=== PATIENT | female | born 1965 | race Caucasian/White ===

== ENCOUNTER 2021-05-19 11:18 | Inpatient (IN) | payer OTHER ==
[2021-05-19] MEDS ORDERED: METOCLOPRAMIDE HCL INJECTION 10 MG/2 ML VIAL IVPB ONE (13:22)
[2021-05-19] MEDS ORDERED: LACTATED RINGERS SOLUTION 1000 ML INFUS.BAG IV ONE ×2 (13:23→16:42)
[2021-05-19] MEDS ORDERED: ACETAMINOPHEN 1000 MG/100 ML VIAL (NON FORMULARY) IVPB ONE (13:37)
[2021-05-19] MEDS ORDERED: ACETAMINOPHEN INJECTION 100 ML IVPB ONE (14:28)
[2021-05-19] MEDS ORDERED: METOCLOPRAMIDE HCL INJECTION 10 MG/2 ML VIAL ONE (14:28)
[2021-05-19 15:47] LABS: BASO % 0.6 % (0-2.0); EOS % 1.6 % (0-4.5); HEMATOCRIT 40.1 % (32.4-45.2); HEMOGLOBIN 13.2 GM/dL (10.7-15.3); LYMPH % 39.8 % (8-40); MCH 26.3 pg (25.7-33.7); MCHC 32.8 g/dl (32.0-36.0); MEAN CELL VOLUME 80.2 fl (80-96); MEAN PLT VOLUME 7.7 fl (7.5-11.1); MONO % 8.4 % (3.8-10.2); NEUT % 49.6 % (42.8-82.8); PLATELET COUNT 386 10^3/uL (134-434); RDW 14.5 % (11.6-15.6); WHITE BLOOD COUNT 11.7 K/mm3 (4.0-10.0)
[2021-05-19 16:05] LABS: CHLORIDE 107 mmol/L (98-107); SODIUM 145 mmol/L (136-145)
[2021-05-19 16:07] LABS: CALCIUM 9.7 mg/dL (8.5-10.1)
[2021-05-19 16:08] LABS: ALBUMIN 3.7 g/dl (3.4-5.0); ANION GAP 11 MMOL/L (8-16); BLOOD UREA NITROGEN 24.6 mg/dL (7-18); CO2 27 mmol/L (21-32)
[2021-05-19 16:11] LABS: SGOT/AST 18 U/L (15-37); SGPT/ALT 24 U/L (13-61)
[2021-05-19 16:13] LABS: BILIRUBIN,TOTAL 0.6 mg/dL (0.2-1)
[2021-05-19 16:14] LABS: ALK PHOS 98 U/L (45-117)
[2021-05-19 16:17] LABS: GLUCOSE,RANDOM 49 mg/dL (74-106)
[2021-05-19 16:29] LABS: URINE APPEARANCE CLOUDY; URINE BILIRUBIN NEGATIVE (NEGATIVE); URINE COLOR YELLOW; URINE GLUCOSE (UA) NEGATIVE (NEGATIVE); URINE KETONE TRACE (NEGATIVE); URINE LEUK ESTERASE NEGATIVE (NEGATIVE); URINE NITRITE NEGATIVE (NEGATIVE); URINE PROTEIN NEGATIVE (NEGATIVE)
[2021-05-19] MEDS ORDERED: morphine CARPU-JECT 4 MG/1 ML DISP.SYRIN IVPUSH ONE (17:08)
[2021-05-19] MEDS ORDERED: morphine SULFATE 4 MG/ML VIAL ONE (17:32)
[2021-05-19] MEDS ORDERED: DEXTROSE 50%-WATER - 25 GM/50 ML VIAL IVPUSH ONE (17:37)
[2021-05-19] MEDS ORDERED: DEXTROSE 50%-WATER 25 GM/50 ML DISP.SYRIN ONE (17:44)
[2021-05-19] MEDS ORDERED: DOCUSATE SODIUM 100 MG CAPSULE (FP) PO ONE ×2 (19:10→19:28)
[2021-05-19] MEDS ORDERED: HYDROmorphone HCL CARPU-JECT 2 MG/1 ML DISP.SYRIN IVPB ONE (19:10)
[2021-05-19] MEDS ORDERED: HYDROmorphone HCl 2 MG/ML VIAL ONE (19:21)
[2021-05-19] MEDS ORDERED: POTASSIUM CHLORIDE TABS 20 MEQ TABLET.ER (FP) PO ONE (22:58)
[2021-05-19] MEDS ORDERED: SODIUM CHLORIDE 1,000 ML IV SCH (23:00)
[2021-05-19] MEDS ORDERED: KCL 10 MEQ IVPB 10 MEQ/100 ML INFUS.BAG IVPB SCH (23:15)
[2021-05-19] MEDS: MORPHINE SULFATE 2 MG/ML VIAL IVPUSH PRN (23:25)
[2021-05-19] MEDS: INSULIN SLIDING SCALE (NOVOLOG) 1 VIAL SQ SCH (23:44)
[2021-05-19] MEDS ORDERED: D5-1/2NS+30 MEQ KCL - 30 MEQ/1,000 ML INFUS.BAG IV SCH (23:45)
[2021-05-20 00:02] LABS: MAGNESIUM 1.9 mg/dL (1.8-2.4)
[2021-05-20 04:35] VITALS: BMI 33.7
[2021-05-20] MEDS: MORPHINE SULFATE 2 MG/ML VIAL IVPUSH PRN ×2 (04:46→08:50)
[2021-05-20] MEDS: INSULIN SLIDING SCALE (NOVOLOG) 1 VIAL SQ SCH ×5 (06:09→23:04)
[2021-05-20] MEDS: HEPARIN NA (PORCINE) 5,000 UNITS/ML 1ML VIAL SQ SCH ×3 (06:09→21:29)
[2021-05-20] MEDS: ACETAMINOPHEN 325 MG TABLET (FP) PO PRN (06:15)
[2021-05-20] MEDS: LEVOTHYROXINE NA 150 MCG TABLET PO SCH (06:16)
[2021-05-20 08:08] LABS: PH,URINE 5.5 (5.0-8.0); URINE APPEARANCE CLEAR; URINE BILIRUBIN NEGATIVE (NEGATIVE); URINE COLOR YELLOW; URINE GLUCOSE (UA) NEGATIVE (NEGATIVE); URINE KETONE NEGATIVE (NEGATIVE); URINE LEUK ESTERASE NEGATIVE (NEGATIVE); URINE NITRITE NEGATIVE (NEGATIVE); URINE PROTEIN NEGATIVE (NEGATIVE); URINE UROBILINOGEN 0.2 mg/dL (0.2-1.0)
[2021-05-20] MEDS: TAMSULOSIN HCL 0.4 MG CAP PO SCH (08:43)
[2021-05-20 09:08] LABS: BLOOD UREA NITROGEN 17.1 mg/dL (7-18); CALCIUM 8.7 mg/dL (8.5-10.1); MAGNESIUM 1.8 mg/dL (1.8-2.4)
[2021-05-20 09:10] LABS: PHOSPHOROUS 4.2 mg/dL (2.5-4.9); URIC ACID 6.5 mg/dL (2.6-7.2)
[2021-05-20 09:11] LABS: CREATININE 1.5 mg/dL (0.55-1.3)
[2021-05-20 09:12] LABS: BILIRUBIN,TOTAL 0.5 mg/dL (0.2-1); TOT PROT 6.5 g/dl (6.4-8.2)
[2021-05-20 09:42] LABS: BASO % 0.8 % (0-2.0); HEMATOCRIT 33.5 % (32.4-45.2); HEMOGLOBIN 11.5 GM/dL (10.7-15.3); MCH 27.2 pg (25.7-33.7); MCHC 34.2 g/dl (32.0-36.0); MEAN CELL VOLUME 79.5 fl (80-96); MEAN PLT VOLUME 7.6 fl (7.5-11.1); MONO % 8.5 % (3.8-10.2); NEUT % 47.7 % (42.8-82.8); PLATELET COUNT 305 10^3/uL (134-434); RBC 4.22 M/mm3 (3.60-5.2); RDW 14.6 % (11.6-15.6); WHITE BLOOD COUNT 8.2 K/mm3 (4.0-10.0)
[2021-05-20] MEDS ORDERED: LISINOPRIL 5 MG TABLET PO SCH (10:00)
[2021-05-20] MEDS: oxyCODONE HCL 5 MG TABLET PO PRN ×2 (12:10→18:11)
[2021-05-20] MEDS: DEXTROSE 5%-0.45% SALINE 1,000 ML IV SCH (21:28)
[2021-05-20] MEDS: ATORVASTATIN CA 20 MG TABLET (FP) PO SCH (21:29)
[2021-05-20] MEDS ORDERED: FAMOTIDINE 20 MG TABLET PO SCH (22:00)
[2021-05-21] MEDS: oxyCODONE HCL 5 MG TABLET PO PRN ×5 (00:06→21:07)
[2021-05-21] MEDS ORDERED: PT OWN MED DRAWER 7, Y5N ONE (05:18)
[2021-05-21] MEDS: DEXTROSE 5%-0.45% SALINE 1,000 ML IV SCH ×2 (06:02→18:05)
[2021-05-21] MEDS: HEPARIN NA (PORCINE) 5,000 UNITS/ML 1ML VIAL SQ SCH ×3 (06:04→21:10)
[2021-05-21] MEDS: LEVOTHYROXINE NA 150 MCG TABLET PO SCH (06:04)
[2021-05-21] MEDS: INSULIN SLIDING SCALE (NOVOLOG) 1 VIAL SQ SCH ×4 (06:05→21:15)
[2021-05-21] MEDS: TAMSULOSIN HCL 0.4 MG CAP PO SCH (09:21)
[2021-05-21 09:39] LABS: BASO % 0.9 % (0-2.0); EOS % 4.4 % (0-4.5); HEMATOCRIT 32.5 % (32.4-45.2); LYMPH % 41.2 % (8-40); MCH 27.2 pg (25.7-33.7); MCHC 33.7 g/dl (32.0-36.0); MEAN CELL VOLUME 80.6 fl (80-96); MEAN PLT VOLUME 7.7 fl (7.5-11.1); MONO % 8.2 % (3.8-10.2); NEUT % 45.3 % (42.8-82.8); PLATELET COUNT 298 10^3/uL (134-434); RBC 4.03 M/mm3 (3.60-5.2); RDW 14.5 % (11.6-15.6); WHITE BLOOD COUNT 6.3 K/mm3 (4.0-10.0)
[2021-05-21 10:01] LABS: CALCIUM 8.5 mg/dL (8.5-10.1)
[2021-05-21 10:03] LABS: ALBUMIN 2.9 g/dl (3.4-5.0); BLOOD UREA NITROGEN 9.7 mg/dL (7-18); MAGNESIUM 1.7 mg/dL (1.8-2.4)
[2021-05-21 10:06] LABS: BILIRUBIN,TOTAL 0.4 mg/dL (0.2-1); CREATININE 1.2 mg/dL (0.55-1.3); TOT PROT 6.2 g/dl (6.4-8.2)
[2021-05-21] MEDS ORDERED: ONDANSETRON *ODT* 4 MG TABLET SL ONE (10:26)
[2021-05-21] MEDS: POLYETHYLENE GLYCOL (HEALTHYLAX) 3350 17 GM PACKET PO SCH (11:41)
[2021-05-21] MEDS: LIDOCAINE 5% TOPICAL PATCH TP SCH (11:41)
[2021-05-21] MEDS: DOCUSATE SODIUM 100 MG CAPSULE (FP) PO SCH ×2 (14:45→21:09)
[2021-05-21] MEDS ORDERED: MAGNESIUM OXIDE 400 MG TABLET (FP) PO ONE (15:07)
[2021-05-21] MEDS: ATORVASTATIN CA 20 MG TABLET (FP) PO SCH (21:09)
[2021-05-21] MEDS: INSULIN (LEVEMIR) 100 UNITS/ML UNITS SQ SCH (21:12)
[2021-05-21] MEDS: LIDOCAINE PATCH REMOVAL MC SCH (21:23)
[2021-05-21] MEDS ORDERED: INSULIN (LEVEMIR) 100 UNITS/ML UNITS SQ SCH (22:00)
[2021-05-22] MEDS: oxyCODONE HCL 5 MG TABLET PO PRN ×4 (00:54→21:08)
[2021-05-22] MEDS: ACETAMINOPHEN 325 MG TABLET (FP) PO PRN (03:52)
[2021-05-22] MEDS: DEXTROSE 5%-0.45% SALINE 1,000 ML IV SCH (03:53)
[2021-05-22] MEDS: HEPARIN NA (PORCINE) 5,000 UNITS/ML 1ML VIAL SQ SCH ×3 (05:15→21:09)
[2021-05-22] MEDS: DOCUSATE SODIUM 100 MG CAPSULE (FP) PO SCH ×3 (05:15→21:09)
[2021-05-22] MEDS: INSULIN (LEVEMIR) 100 UNITS/ML UNITS SQ SCH ×2 (06:07→21:19)
[2021-05-22] MEDS: LEVOTHYROXINE NA 150 MCG TABLET PO SCH (06:07)
[2021-05-22] MEDS: INSULIN SLIDING SCALE (NOVOLOG) 1 VIAL SQ SCH ×4 (06:09→21:18)
[2021-05-22 08:59] LABS: BASO % 0.9 % (0-2.0); EOS % 4.2 % (0-4.5); HEMATOCRIT 30.3 % (32.4-45.2); HEMOGLOBIN 9.9 GM/dL (10.7-15.3); LYMPH % 44.9 % (8-40); MCH 26.5 pg (25.7-33.7); MCHC 32.8 g/dl (32.0-36.0); MEAN CELL VOLUME 80.6 fl (80-96); MEAN PLT VOLUME 7.4 fl (7.5-11.1); MONO % 10.3 % (3.8-10.2); NEUT % 39.7 % (42.8-82.8); PLATELET COUNT 259 10^3/uL (134-434); RBC 3.76 M/mm3 (3.60-5.2); RDW 14.7 % (11.6-15.6); WHITE BLOOD COUNT 6.5 K/mm3 (4.0-10.0)
[2021-05-22 09:22] LABS: CALCIUM 8.6 mg/dL (8.5-10.1)
[2021-05-22 09:23] LABS: BLOOD UREA NITROGEN 5.7 mg/dL (7-18); MAGNESIUM 1.8 mg/dL (1.8-2.4)
[2021-05-22 09:26] LABS: CREATININE 1.1 mg/dL (0.55-1.3)
[2021-05-22 09:28] LABS: BILIRUBIN,TOTAL 0.2 mg/dL (0.2-1); TOT PROT 6.1 g/dl (6.4-8.2)
[2021-05-22] MEDS: TAMSULOSIN HCL 0.4 MG CAP PO SCH (10:24)
[2021-05-22] MEDS: POLYETHYLENE GLYCOL (HEALTHYLAX) 3350 17 GM PACKET PO SCH (10:24)
[2021-05-22] MEDS: LIDOCAINE 5% TOPICAL PATCH TP SCH (10:24)
[2021-05-22] MEDS ORDERED: ACETAMINOPHEN 1000 MG/100 ML VIAL (NON FORMULARY) IVPB ONE (11:02)
[2021-05-22] MEDS ORDERED: MORPHINE SULFATE 2 MG/ML VIAL SQ ONE (11:03)
[2021-05-22] MEDS ORDERED: BISACODYL 10 MG SUPP.RECT PR ONE (11:03)
[2021-05-22] MEDS: SODIUM CHLORIDE 1,000 ML IV SCH ×2 (11:12→21:10)
[2021-05-22] MEDS ORDERED: DEXTROSE 5%-WATER - 50 ML IVPB ONE (16:57)
[2021-05-22] MEDS ORDERED: cefTRIAXone SODIUM 1 GM VIAL ONE (16:57)
[2021-05-22] MEDS: CEFTRIAXONE 1 GM in DEXTROSE 5%-WATER - 50 ML IVPB SCH (17:18)
[2021-05-22] MEDS: ATORVASTATIN CA 20 MG TABLET (FP) PO SCH (21:09)
[2021-05-22] MEDS: LIDOCAINE PATCH REMOVAL MC SCH (21:20)
[2021-05-23] MEDS: oxyCODONE HCL 5 MG TABLET PO PRN ×3 (02:57→15:32)
[2021-05-23] MEDS: HEPARIN NA (PORCINE) 5,000 UNITS/ML 1ML VIAL SQ SCH ×3 (05:08→21:03)
[2021-05-23] MEDS: DOCUSATE SODIUM 100 MG CAPSULE (FP) PO SCH ×3 (05:08→21:03)
[2021-05-23] MEDS: INSULIN (LEVEMIR) 100 UNITS/ML UNITS SQ SCH ×2 (05:59→21:03)
[2021-05-23] MEDS: LEVOTHYROXINE NA 150 MCG TABLET PO SCH (05:59)
[2021-05-23] MEDS: INSULIN SLIDING SCALE (NOVOLOG) 1 VIAL SQ SCH ×4 (05:59→21:40)
[2021-05-23] MEDS: SODIUM CHLORIDE 1,000 ML IV SCH (06:06)
[2021-05-23 07:28] LABS: BASO % 0.9 % (0-2.0); EOS % 3.9 % (0-4.5); HEMATOCRIT 30.6 % (32.4-45.2); HEMOGLOBIN 10.3 GM/dL (10.7-15.3); LYMPH % 33.8 % (8-40); MCH 27.3 pg (25.7-33.7); MCHC 33.5 g/dl (32.0-36.0); MEAN CELL VOLUME 81.3 fl (80-96); MEAN PLT VOLUME 7.8 fl (7.5-11.1); MONO % 8.4 % (3.8-10.2); PLATELET COUNT 268 10^3/uL (134-434); RBC 3.76 M/mm3 (3.60-5.2); RDW 14.7 % (11.6-15.6); WHITE BLOOD COUNT 5.7 K/mm3 (4.0-10.0)
[2021-05-23 07:38] LABS: CALCIUM 8.2 mg/dL (8.5-10.1)
[2021-05-23 07:39] LABS: ALBUMIN 2.8 g/dl (3.4-5.0); BLOOD UREA NITROGEN 7.3 mg/dL (7-18); MAGNESIUM 1.5 mg/dL (1.8-2.4)
[2021-05-23 07:42] LABS: CREATININE 1.1 mg/dL (0.55-1.3)
[2021-05-23 07:43] LABS: BILIRUBIN,TOTAL 0.2 mg/dL (0.2-1)
[2021-05-23 07:44] LABS: TOT PROT 6.1 g/dl (6.4-8.2)
[2021-05-23] MEDS ORDERED: MAGNESIUM OXIDE 400 MG TABLET (FP) PO ONE (07:58)
[2021-05-23] MEDS: TAMSULOSIN HCL 0.4 MG CAP PO SCH (08:23)
[2021-05-23] MEDS ORDERED: BISACODYL 5 MG TABLET.DR (FP) PO ONE (09:53)
[2021-05-23] MEDS ORDERED: cefTRIAXone SODIUM 1 GM VIAL ONE (10:04)
[2021-05-23] MEDS ORDERED: DEXTROSE 5%-WATER - 50 ML IVPB ONE (10:05)
[2021-05-23] MEDS: POLYETHYLENE GLYCOL (HEALTHYLAX) 3350 17 GM PACKET PO SCH (10:34)
[2021-05-23] MEDS: CEFTRIAXONE 1 GM in DEXTROSE 5%-WATER - 50 ML IVPB SCH (10:34)
[2021-05-23] MEDS: LIDOCAINE 5% TOPICAL PATCH TP SCH (10:35)
[2021-05-23] MEDS: ACETAMINOPHEN 325 MG TABLET (FP) PO PRN (10:49)
[2021-05-23] MEDS ORDERED: ACETAMINOPHEN 1000 MG/100 ML VIAL (NON FORMULARY) IVPB ONE (20:00)
[2021-05-23] MEDS: ATORVASTATIN CA 20 MG TABLET (FP) PO SCH (21:03)
[2021-05-24] MEDS: HEPARIN NA (PORCINE) 5,000 UNITS/ML 1ML VIAL SQ SCH (05:03)
[2021-05-24] MEDS: DOCUSATE SODIUM 100 MG CAPSULE (FP) PO SCH (05:04)
[2021-05-24] MEDS: INSULIN (LEVEMIR) 100 UNITS/ML UNITS SQ SCH (06:18)
[2021-05-24] MEDS: INSULIN SLIDING SCALE (NOVOLOG) 1 VIAL SQ SCH (06:18)
[2021-05-24] MEDS: LEVOTHYROXINE NA 150 MCG TABLET PO SCH (06:21)
[2021-05-24 06:34] VITALS: BP 120/77; PULSE 61; TEMP 98.2
[2021-05-24 08:32] LABS: BASO % 0.8 % (0-2.0); EOS % 4.4 % (0-4.5); HEMATOCRIT 31.9 % (32.4-45.2); HEMOGLOBIN 10.8 GM/dL (10.7-15.3); LYMPH % 27.7 % (8-40); MCH 27.5 pg (25.7-33.7); MCHC 33.8 g/dl (32.0-36.0); MEAN CELL VOLUME 81.2 fl (80-96); MEAN PLT VOLUME 7.7 fl (7.5-11.1); MONO % 8.2 % (3.8-10.2); NEUT % 58.9 % (42.8-82.8); PLATELET COUNT 278 10^3/uL (134-434); RBC 3.93 M/mm3 (3.60-5.2); RDW 14.6 % (11.6-15.6); WHITE BLOOD COUNT 6.3 K/mm3 (4.0-10.0)
[2021-05-24 08:55] LABS: CALCIUM 8.8 mg/dL (8.5-10.1)
[2021-05-24 08:56] LABS: ALBUMIN 2.9 g/dl (3.4-5.0); MAGNESIUM 1.7 mg/dL (1.8-2.4)
[2021-05-24 08:59] LABS: CREATININE 1.2 mg/dL (0.55-1.3)
[2021-05-24 09:01] LABS: BILIRUBIN,TOTAL 0.2 mg/dL (0.2-1); TOT PROT 6.1 g/dl (6.4-8.2)
[2021-05-24] MEDS ORDERED: MAGNESIUM OXIDE 400 MG TABLET (FP) PO ONE (09:15)
[2021-05-24] MEDS ORDERED: cefTRIAXone SODIUM 1 GM VIAL ONE (10:17)
[2021-05-24] MEDS ORDERED: DEXTROSE 5%-WATER - 50 ML IVPB ONE (10:17)
[2021-05-24] MEDS: oxyCODONE HCL 5 MG TABLET PO PRN (10:22)
[2021-05-24] MEDS: TAMSULOSIN HCL 0.4 MG CAP PO SCH (10:23)
[2021-05-24] MEDS: POLYETHYLENE GLYCOL (HEALTHYLAX) 3350 17 GM PACKET PO SCH (10:23)
[2021-05-24] MEDS: LIDOCAINE 5% TOPICAL PATCH TP SCH (10:23)
[2021-05-24] MEDS: CEFTRIAXONE 1 GM in DEXTROSE 5%-WATER - 50 ML IVPB SCH (10:24)
== END 2021-05-24 14:49 | disposition home or self-care (01) | DRG 469 ==
LOC: JER 11:18 → JERBED 18:05 → J8W 22:45
PROVIDERS: ADMIT Internal Medicine; ATTEND Nurse Practitioner Family
DX: N17.9 Acute kidney failure, unspecified (principal); I25.10 Atherosclerotic heart disease of native coronary artery without angina pectoris; I10 Essential (primary) hypertension; E03.9 Hypothyroidism, unspecified; E87.6 Hypokalemia; N20.0 Calculus of kidney; N12 Tubulo-interstitial nephritis, not specified as acute or chronic; E11.65 Type 2 diabetes mellitus with hyperglycemia; N28.1 Cyst of kidney, acquired
CPT/HCPCS: 36415; 74176-TC; 76775-TC; 80053; 81003; 82962; 83036; 83735; 83970; 84100; 84436; 84443; 84550; 84703; 85025; 87086; 93005; 93010; 97116-GP; 97161-GP; 99285-25; C9803; J0131; J1644; Q0162; U0003; U0005

== ENCOUNTER 2021-06-18 13:00 | Inpatient (IN) | payer OTHER ==
[2021-06-18] MEDS ORDERED: MAG HYDROX/AL HYDROX/SIMETH 30 ML UNIT-DOSE CUP PO ONE (13:41)
[2021-06-18] MEDS ORDERED: ONDANSETRON 4 MG/2 ML VIAL IVPUSH ONE (13:41)
[2021-06-18] MEDS ORDERED: SODIUM CHLORIDE 0.9% 500 ML INFUS.BAG IV ONE ×2 (13:41→18:22)
[2021-06-18] MEDS ORDERED: FAMOTIDINE 20 MG/50 ML IVPB 20 MG/50 ML MG IVPB ONE ×2 (13:42→13:45)
[2021-06-18] MEDS ORDERED: ONDANSETRON 4 MG/2 ML VIAL ONE (13:45)
[2021-06-18 14:37] LABS: BASO % 0.5 % (0-2.0); EOS % 0.1 % (0-4.5); HEMATOCRIT 38.1 % (32.4-45.2); HEMOGLOBIN 12.8 GM/dL (10.7-15.3); LYMPH % 22.3 % (8-40); MCH 26.4 pg (25.7-33.7); MCHC 33.5 g/dl (32.0-36.0); MEAN CELL VOLUME 78.7 fl (80-96); MEAN PLT VOLUME 7.7 fl (7.5-11.1); MONO % 8.2 % (3.8-10.2); NEUT % 68.9 % (42.8-82.8); PLATELET COUNT 405 10^3/uL (134-434); RBC 4.84 M/mm3 (3.60-5.2); RDW 14.4 % (11.6-15.6); WHITE BLOOD COUNT 13.3 K/mm3 (4.0-10.0)
[2021-06-18 15:00] LABS: CHLORIDE 98 mmol/L (98-107); SODIUM 134 mmol/L (136-145)
[2021-06-18 15:02] LABS: ALBUMIN 3.9 g/dl (3.4-5.0); BLOOD UREA NITROGEN 21.7 mg/dL (7-18); CALCIUM 9.6 mg/dL (8.5-10.1)
[2021-06-18 15:03] LABS: ANION GAP 10 MMOL/L (8-16); CO2 26 mmol/L (21-32); GLUCOSE,RANDOM 235 mg/dL (74-106); LIPASE 42 U/L (73-393)
[2021-06-18 15:06] LABS: CREATININE 1.3 mg/dL (0.55-1.3); SGOT/AST 18 U/L (15-37); SGPT/ALT 26 U/L (13-61)
[2021-06-18 15:07] LABS: BILIRUBIN,TOTAL 0.4 mg/dL (0.2-1); TOT PROT 8.1 g/dl (6.4-8.2)
[2021-06-18 15:08] LABS: ALK PHOS 108 U/L (45-117)
[2021-06-18] MEDS ORDERED: METOCLOPRAMIDE HCL INJECTION 10 MG/2 ML VIAL IVPUSH ONE (18:01)
[2021-06-18] MEDS ORDERED: morphine CARPU-JECT 4 MG/1 ML DISP.SYRIN IVPUSH ONE (18:01)
[2021-06-18] MEDS ORDERED: morphine SULFATE 4 MG/ML VIAL ONE (18:08)
[2021-06-18] MEDS ORDERED: METOCLOPRAMIDE HCL INJECTION 10 MG/2 ML VIAL ONE (18:09)
[2021-06-18 20:08] LABS: EPI CELLS 19 /uL (0-25.1); HYALINE CASTS 1 /uL (0-3.1); PH,URINE 5.5 (5.0-8.0); URINE APPEARANCE CLEAR; URINE BACTERIA 860 /uL (0-1359); URINE BILIRUBIN NEGATIVE (NEGATIVE); URINE COLOR YELLOW; URINE GLUCOSE (UA) 1+ (NEGATIVE); URINE KETONE 1+ (NEGATIVE); URINE LEUK ESTERASE NEGATIVE (NEGATIVE); URINE NITRITE NEGATIVE (NEGATIVE); URINE PROTEIN 2+ (NEGATIVE); URINE RBC 4 /uL (0-23.9); URINE UROBILINOGEN 0.2 mg/dL (0.2-1.0); URINE WBC 21 /uL (0-25.8)
[2021-06-18] MEDS: SODIUM CHLORIDE 1,000 ML IV SCH (22:04)
[2021-06-18 22:30] VITALS: BMI 33.1
[2021-06-18] MEDS ORDERED: ONDANSETRON 4 MG/2 ML VIAL IVPUSH PRN (23:36)
[2021-06-18] MEDS ORDERED: MAG HYDROX/AL HYDROX/SIMETH 30 ML UNIT-DOSE CUP PO PRN (23:36)
[2021-06-18] MEDS: MORPHINE SULFATE 2 MG/ML VIAL IVPUSH PRN (23:43)
[2021-06-18 23:54] LABS: BASO % 0.6 % (0-2.0); EOS % 0.4 % (0-4.5); HEMATOCRIT 35.6 % (32.4-45.2); HEMOGLOBIN 11.9 GM/dL (10.7-15.3); LYMPH % 25.1 % (8-40); MCH 26.3 pg (25.7-33.7); MCHC 33.3 g/dl (32.0-36.0); MEAN CELL VOLUME 78.8 fl (80-96); MEAN PLT VOLUME 7.5 fl (7.5-11.1); MONO % 11.1 % (3.8-10.2); NEUT % 62.8 % (42.8-82.8); PLATELET COUNT 339 10^3/uL (134-434); RBC 4.52 M/mm3 (3.60-5.2); WHITE BLOOD COUNT 12.4 K/mm3 (4.0-10.0)
[2021-06-19] MEDS: INSULIN SLIDING SCALE (NOVOLOG) 1 VIAL SQ SCH ×4 (06:03→21:21)
[2021-06-19] MEDS: MORPHINE SULFATE 2 MG/ML VIAL IVPUSH PRN ×3 (06:08→20:48)
[2021-06-19 07:04] LABS: COCAINE, UR NEGATIVE (NEGATIVE); PHENCYCLIDINE,URINE NEGATIVE (NEGATIVE)
[2021-06-19 07:05] LABS: METHADONE, UR NEGATIVE (NEGATIVE); OPIATES, URI POSITIVE (NEGATIVE); URINE AMPHETAMINES NEGATIVE (NEGATIVE); URINE BARBITURATES NEGATIVE (NEGATIVE); URINE BENZODIAZEPINES NEGATIVE (NEGATIVE)
[2021-06-19 08:27] LABS: BASO % 0.8 % (0-2.0); EOS % 1.1 % (0-4.5); HEMATOCRIT 33.5 % (32.4-45.2); HEMOGLOBIN 11.3 GM/dL (10.7-15.3); LYMPH % 29.4 % (8-40); MCH 26.6 pg (25.7-33.7); MCHC 33.6 g/dl (32.0-36.0); MEAN CELL VOLUME 79.1 fl (80-96); MEAN PLT VOLUME 7.6 fl (7.5-11.1); MONO % 11.2 % (3.8-10.2); NEUT % 57.5 % (42.8-82.8); PLATELET COUNT 322 10^3/uL (134-434); RBC 4.24 M/mm3 (3.60-5.2); WHITE BLOOD COUNT 9.6 K/mm3 (4.0-10.0)
[2021-06-19 08:47] LABS: CALCIUM 8.3 mg/dL (8.5-10.1)
[2021-06-19 08:48] LABS: ALBUMIN 3.2 g/dl (3.4-5.0); BLOOD UREA NITROGEN 18.3 mg/dL (7-18); MAGNESIUM 1.9 mg/dL (1.8-2.4)
[2021-06-19 08:51] LABS: CREATININE 1.1 mg/dL (0.55-1.3); PHOSPHOROUS 3.1 mg/dL (2.5-4.9)
[2021-06-19 08:52] LABS: BILIRUBIN,TOTAL 0.4 mg/dL (0.2-1); TOT PROT 6.4 g/dl (6.4-8.2)
[2021-06-19] MEDS: ENOXAPARIN NA (PORCINE) 40 MG/0.4 ML DISP.SYRIN SQ SCH (11:01)
[2021-06-19] MEDS: SODIUM CHLORIDE 1,000 ML IV SCH (11:01)
[2021-06-19] MEDS ORDERED: INSULIN (NOVOLOG) ASPART 100 UNITS/ML 10ML VIAL ONE (17:45)
[2021-06-20] MEDS: MORPHINE SULFATE 2 MG/ML VIAL IVPUSH PRN ×2 (00:50→09:56)
[2021-06-20] MEDS: SODIUM CHLORIDE 1,000 ML IV SCH ×3 (01:44→14:16)
[2021-06-20] MEDS: INSULIN SLIDING SCALE (NOVOLOG) 1 VIAL SQ SCH ×4 (06:04→22:07)
[2021-06-20] MEDS: ENOXAPARIN NA (PORCINE) 40 MG/0.4 ML DISP.SYRIN SQ SCH (09:56)
[2021-06-20] MEDS ORDERED: ACETAMINOPHEN 325 MG TABLET (FP) PO PRN (20:04)
[2021-06-21] MEDS: SODIUM CHLORIDE 1,000 ML IV SCH ×3 (04:02→21:07)
[2021-06-21] MEDS: INSULIN SLIDING SCALE (NOVOLOG) 1 VIAL SQ SCH ×4 (06:28→21:08)
[2021-06-21] MEDS: MULTIVITAMINS (DAILY MVI) TABLET (FP) PO SCH (10:41)
[2021-06-21] MEDS: ENOXAPARIN NA (PORCINE) 40 MG/0.4 ML DISP.SYRIN SQ SCH (10:41)
[2021-06-21 12:40] LABS: BASO % 0.3 % (0-2.0); EOS % 2.4 % (0-4.5); HEMATOCRIT 33.9 % (32.4-45.2); HEMOGLOBIN 11.5 GM/dL (10.7-15.3); LYMPH % 27.9 % (8-40); MCH 27.2 pg (25.7-33.7); MCHC 33.9 g/dl (32.0-36.0); MEAN CELL VOLUME 80.2 fl (80-96); MEAN PLT VOLUME 7.6 fl (7.5-11.1); MONO % 6.4 % (3.8-10.2); PLATELET COUNT 352 10^3/uL (134-434); RBC 4.23 M/mm3 (3.60-5.2); RDW 13.9 % (11.6-15.6); WHITE BLOOD COUNT 8.8 K/mm3 (4.0-10.0)
[2021-06-21 13:02] LABS: ALBUMIN 3.4 g/dl (3.4-5.0); BLOOD UREA NITROGEN 11.8 mg/dL (7-18); CALCIUM 8.9 mg/dL (8.5-10.1)
[2021-06-21 13:07] LABS: BILIRUBIN,TOTAL 0.4 mg/dL (0.2-1); TOT PROT 7.2 g/dl (6.4-8.2)
[2021-06-22] MEDS: INSULIN SLIDING SCALE (NOVOLOG) 1 VIAL SQ SCH ×2 (06:03→12:24)
[2021-06-22] MEDS: SODIUM CHLORIDE 1,000 ML IV SCH (06:29)
[2021-06-22] MEDS: ENOXAPARIN NA (PORCINE) 40 MG/0.4 ML DISP.SYRIN SQ SCH (10:58)
[2021-06-22] MEDS: MULTIVITAMINS (DAILY MVI) TABLET (FP) PO SCH (10:58)
[2021-06-22 12:00] VITALS: BP 144/82; PULSE 86; TEMP 98.9
== END 2021-06-22 17:49 | disposition home or self-care (01) | DRG 48 ==
LOC: JER 13:00 → JERBED 18:37 → J8W 20:51
PROVIDERS: ADMIT Internal Medicine
DX: E11.43 Type 2 diabetes mellitus with diabetic autonomic (poly)neuropathy (principal); I31.3 Pericardial effusion (noninflammatory); D72.829 Elevated white blood cell count, unspecified; I10 Essential (primary) hypertension; K31.84 Gastroparesis; E78.5 Hyperlipidemia, unspecified; F17.210 Nicotine dependence, cigarettes, uncomplicated; I25.10 Atherosclerotic heart disease of native coronary artery without angina pectoris; K43.9 Ventral hernia without obstruction or gangrene; R10.84 Generalized abdominal pain; R11.2 Nausea with vomiting, unspecified; Z79.01 Long term (current) use of anticoagulants; Z79.82 Long term (current) use of aspirin; E66.9 Obesity, unspecified; Z68.33 Body mass index [BMI] 33.0-33.9, adult; E03.9 Hypothyroidism, unspecified; K21.9 Gastro-esophageal reflux disease without esophagitis; R19.7 Diarrhea, unspecified
CPT/HCPCS: 36415; 70450-TC; 71046-TC-FY; 74176-TC; 80053; 80307; 81003; 82962; 83690; 83735; 84100; 84443; 84484; 85025; 87040; 87086; 93005; 93010; 99285-25; C9803; U0003; U0005

== ENCOUNTER 2021-07-21 12:59 | Emergency (ER) | payer OTHER ==
[2021-07-21 13:12] VITALS: BP 130/76; PULSE 94; TEMP 97.9; BMI 33.3
[2021-07-21] MEDS ORDERED: ACETAMINOPHEN 500 MG TABLET (FP) PO ONE (13:48)
[2021-07-21] MEDS ORDERED: DIPHTH,PERTUSS(ACELL),TET 0.5 ML DISP.SYRIN IM ONE ×2 (13:50→13:55)
[2021-07-21] MEDS ORDERED: ACETAMINOPHEN 500 MG TABLET (FP) ONE (13:54)
== END 2021-07-21 15:00 | disposition home or self-care (01) ==
LOC: JERFT 12:59
PROC: 0H9BXZZ Drainage of Right Upper Arm Skin, External Approach (ICD-10-PCS; principal; 2021-07-21)
PROC: 3E0234Z Introduction of Serum, Toxoid and Vaccine into Muscle, Percutaneous Approach (ICD-10-PCS; 2021-07-21)
DX: L02.412 Cutaneous abscess of left axilla (principal)
CPT/HCPCS: 10060; 90471; 90715; 99284-25

== ENCOUNTER 2021-07-23 13:04 | Emergency (ER) | payer OTHER ==
[2021-07-23 13:28] VITALS: BP 133/76; PULSE 91; TEMP 98.6; BMI 33.3
== END 2021-07-23 14:10 | disposition home or self-care (01) ==
LOC: JERFT 13:04
DX: Z48.00 Encounter for change or removal of nonsurgical wound dressing (principal)
CPT/HCPCS: 99281-25

== ENCOUNTER 2022-02-15 17:18 | Inpatient (IN) | payer OTHER ==
[2022-02-15 17:34] VITALS: BMI 36.6
[2022-02-15 21:14] LABS: BASO % 0.9 % (0-2.0); EOS % 1.3 % (0-4.5); HEMATOCRIT 36.1 % (32.4-45.2); HEMOGLOBIN 11.9 GM/dL (10.7-15.3); LYMPH % 33.9 % (8-40); MCH 26.1 pg (25.7-33.7); MCHC 33.1 g/dl (32.0-36.0); MEAN CELL VOLUME 78.8 fl (80-96); MEAN PLT VOLUME 7.3 fl (7.5-11.1); MONO % 7.5 % (3.8-10.2); NEUT % 56.4 % (42.8-82.8); PLATELET COUNT 376 10^3/uL (134-434); RBC 4.57 M/mm3 (3.60-5.2); WHITE BLOOD COUNT 11.2 K/mm3 (4.0-10.0)
[2022-02-15 21:17] LABS: CALCIUM 9.2 mg/dL (8.5-10.1)
[2022-02-15 21:18] LABS: ALBUMIN 3.6 g/dl (3.4-5.0); BLOOD UREA NITROGEN 23.4 mg/dL (7-18)
[2022-02-15 21:21] LABS: CREATININE 2.2 mg/dL (0.55-1.3)
[2022-02-15 21:23] LABS: BILIRUBIN,TOTAL 0.5 mg/dL (0.2-1); TOT PROT 7.5 g/dl (6.4-8.2)
[2022-02-15 22:33] LABS: EPI CELLS >36 /uL (0-25.1); HYALINE CASTS 21 /uL (0-3.1); URINE APPEARANCE CLOUDY; URINE BACTERIA 17 /uL (0-1359); URINE BILIRUBIN NEGATIVE (NEGATIVE); URINE COLOR DK YELLOW; URINE GLUCOSE (UA) NEGATIVE (NEGATIVE); URINE KETONE TRACE (NEGATIVE); URINE LEUK ESTERASE 1+ (NEGATIVE); URINE NITRITE NEGATIVE (NEGATIVE); URINE PROTEIN 3+ (NEGATIVE); URINE RBC 15 /uL (0-23.9); URINE WBC 58 /uL (0-25.8)
[2022-02-15] MEDS ORDERED: SODIUM CHLORIDE 1,000 ML IV STA (23:17)
[2022-02-16] MEDS ORDERED: SODIUM CHLORIDE 1,000 ML IV STA (01:51)
[2022-02-16 02:17] LABS: CALCIUM 8.3 mg/dL (8.5-10.1)
[2022-02-16 02:18] LABS: BLOOD UREA NITROGEN 25.4 mg/dL (7-18)
[2022-02-16 02:21] LABS: CREATININE 2.4 mg/dL (0.55-1.3)
[2022-02-16] MEDS ORDERED: DEXTROSE 50%-WATER - 25 GM/50 ML VIAL IVPUSH ONE (03:18)
[2022-02-16] MEDS ORDERED: DEXTROSE 50%-WATER 25 GM/50 ML DISP.SYRIN ONE (03:20)
[2022-02-16 03:40] LABS: EPI CELLS >36 /uL (0-25.1); HYALINE CASTS 46 /uL (0-3.1); URINE APPEARANCE CLOUDY; URINE BACTERIA 34 /uL (0-1359); URINE BILIRUBIN NEGATIVE (NEGATIVE); URINE COLOR DK YELLOW; URINE GLUCOSE (UA) NEGATIVE (NEGATIVE); URINE KETONE TRACE (NEGATIVE); URINE LEUK ESTERASE 2+ (NEGATIVE); URINE NITRITE NEGATIVE (NEGATIVE); URINE PROTEIN 2+ (NEGATIVE); URINE RBC 37 /uL (0-23.9); URINE WBC 171 /uL (0-25.8)
[2022-02-16 03:53] LABS: CHLORIDE 105 mmol/L (98-107); SODIUM 139 mmol/L (136-145)
[2022-02-16 03:55] LABS: ANION GAP 7 MMOL/L (8-16); BLOOD UREA NITROGEN 24.6 mg/dL (7-18); CALCIUM 8.3 mg/dL (8.5-10.1); CO2 27 mmol/L (21-32)
[2022-02-16 03:59] LABS: CREATININE 2.3 mg/dL (0.55-1.3)
[2022-02-16 04:35] LABS: GLUCOSE,RANDOM 44 mg/dL (74-106)
[2022-02-16] MEDS ORDERED: POLYETHYLENE GLYCOL (HEALTHYLAX) 3350 17 GM PACKET PO PRN (05:36)
[2022-02-16] MEDS ORDERED: CEFTRIAXONE 1,000 MG in DEXTROSE 5%-WATER - 50 ML IVPB ONE (06:25)
[2022-02-16] MEDS ORDERED: SODIUM CHLORIDE 500 ML IV STA (06:30)
[2022-02-16] MEDS ORDERED: HEPARIN NA (PORCINE) 5,000 UNITS/ML 1ML VIAL ONE (06:32)
[2022-02-16] MEDS ORDERED: CEFTRIAXONE 1 GM/50 ML BAG ONE (06:32)
[2022-02-16] MEDS ORDERED: ACETAMINOPHEN 325 MG TABLET (FP) ONE (06:52)
[2022-02-16] MEDS: DEXTROSE 5%-NORMAL SALINE 1,000 ML IV SCH (06:55)
[2022-02-16] MEDS: HEPARIN NA (PORCINE) 5,000 UNITS/ML 1ML VIAL SQ SCH ×3 (06:56→21:57)
[2022-02-16] MEDS: ACETAMINOPHEN 325 MG TABLET (FP) PO PRN ×2 (06:56→21:56)
[2022-02-16] MEDS ORDERED: ONDANSETRON 4 MG/2 ML VIAL IVPUSH PRN (07:55)
[2022-02-16 07:59] LABS: EOS % 1.6 % (0-4.5); HEMATOCRIT 34.3 % (32.4-45.2); HEMOGLOBIN 11.5 GM/dL (10.7-15.3); LYMPH % 34.3 % (8-40); MCH 26.3 pg (25.7-33.7); MCHC 33.5 g/dl (32.0-36.0); MEAN CELL VOLUME 78.6 fl (80-96); MONO % 5.9 % (3.8-10.2); NEUT % 57.2 % (42.8-82.8); PLATELET COUNT 296 10^3/uL (134-434); RBC 4.36 M/mm3 (3.60-5.2); WHITE BLOOD COUNT 12.3 K/mm3 (4.0-10.0)
[2022-02-16] MEDS ORDERED: PANTOPRAZOLE SODIUM 40 MG VIAL ONE (08:15)
[2022-02-16 08:17] LABS: CALCIUM 8.4 mg/dL (8.5-10.1); MAGNESIUM 1.9 mg/dL (1.8-2.4)
[2022-02-16 08:18] LABS: BLOOD UREA NITROGEN 24.3 mg/dL (7-18)
[2022-02-16 08:21] LABS: CREATININE 2.1 mg/dL (0.55-1.3); PHOSPHOROUS 3.6 mg/dL (2.5-4.9)
[2022-02-16 08:31] LABS: INR 1.11 (0.83-1.09); PROTHROMBIN TIME (PATIENT) 12.8 SEC (9.7-13.0)
[2022-02-16] MEDS ORDERED: PANTOPRAZOLE SODIUM 40 MG VIAL IVPUSH ONE (08:45)
[2022-02-16] MEDS ORDERED: LEVOTHYROXINE NA 75 MCG TABLET (FP) ONE (09:19)
[2022-02-16] MEDS ORDERED: LEVOTHYROXINE NA 75 MCG TABLET (FP) PO SCH ×2 (10:00→22:33)
[2022-02-16] MEDS ORDERED: ACETAMINOPHEN 1000 MG/100 ML BAG IVPB ONE (14:15)
[2022-02-16] MEDS ORDERED: INSULIN (NOVOLOG) ASPART 100 UNITS/ML 10ML VIAL SQ ONE (17:42)
[2022-02-16] MEDS: SODIUM CHLORIDE 1,000 ML IV SCH (19:17)
[2022-02-16] MEDS: MONTELUKAST NA 10 MG TABLET PO SCH (21:55)
[2022-02-16] MEDS: ATORVASTATIN CA 20 MG TABLET (FP) PO SCH (21:55)
[2022-02-16] MEDS: SENNOSIDES 8.6MG TABLET (FP) PO SCH (21:56)
[2022-02-17] MEDS: SODIUM CHLORIDE 1,000 ML IV SCH (05:06)
[2022-02-17] MEDS ORDERED: LEVOTHYROXINE NA 25 MCG TABLET (FP) ONE (06:21)
[2022-02-17] MEDS ORDERED: LEVOTHYROXINE NA 150 MCG TABLET ONE (06:21)
[2022-02-17] MEDS: LEVOTHYROXINE 150 MCG, LEVOTHYROXINE 25 MCG PO SCH (06:32)
[2022-02-17] MEDS: INSULIN (LEVEMIR) 100 UNITS/ML UNITS SQ SCH (06:33)
[2022-02-17] MEDS: INSULIN SLIDING SCALE (NOVOLOG) 1 VIAL SQ SCH ×4 (06:33→21:33)
[2022-02-17] MEDS: HEPARIN NA (PORCINE) 5,000 UNITS/ML 1ML VIAL SQ SCH ×3 (06:33→21:33)
[2022-02-17] MEDS: DEXTROSE 5%-NORMAL SALINE 1,000 ML IV SCH (06:34)
[2022-02-17] MEDS ORDERED: INSULIN (NOVOLOG) ASPART 100 UNITS/ML 10ML VIAL ONE (06:38)
[2022-02-17 09:19] LABS: BASO % 1.2 % (0-2.0); EOS % 4.7 % (0-4.5); HEMOGLOBIN 11.5 GM/dL (10.7-15.3); LYMPH % 41.7 % (8-40); MCH 25.9 pg (25.7-33.7); MCHC 32.1 g/dl (32.0-36.0); MEAN CELL VOLUME 80.6 fl (80-96); MEAN PLT VOLUME 8.2 fl (7.5-11.1); MONO % 7.7 % (3.8-10.2); NEUT % 44.7 % (42.8-82.8); PLATELET COUNT 277 10^3/uL (134-434); RBC 4.46 M/mm3 (3.60-5.2); RDW 16.4 % (11.6-15.6); WHITE BLOOD COUNT 6.4 K/mm3 (4.0-10.0)
[2022-02-17 09:39] LABS: CALCIUM 8.7 mg/dL (8.5-10.1)
[2022-02-17 09:40] LABS: BLOOD UREA NITROGEN 17.1 mg/dL (7-18)
[2022-02-17 09:42] LABS: CREATININE 1.3 mg/dL (0.55-1.3)
[2022-02-17 09:44] LABS: BILIRUBIN,TOTAL 0.3 mg/dL (0.2-1); TOT PROT 6.1 g/dl (6.4-8.2)
[2022-02-17] MEDS ORDERED: ACETAMINOPHEN 1000 MG/100 ML BAG IVPB PRN (10:43)
[2022-02-17] MEDS: MONTELUKAST NA 10 MG TABLET PO SCH (21:33)
[2022-02-17] MEDS: SENNOSIDES 8.6MG TABLET (FP) PO SCH (21:33)
[2022-02-17] MEDS: ATORVASTATIN CA 20 MG TABLET (FP) PO SCH (21:33)
[2022-02-18] MEDS: SODIUM CHLORIDE 1,000 ML IV SCH ×3 (01:45→21:03)
[2022-02-18] MEDS ORDERED: LEVOTHYROXINE NA 25 MCG TABLET (FP) ONE (06:16)
[2022-02-18] MEDS ORDERED: LEVOTHYROXINE NA 150 MCG TABLET ONE (06:16)
[2022-02-18] MEDS: DEXTROSE 5%-NORMAL SALINE 1,000 ML IV SCH (06:40)
[2022-02-18] MEDS: HEPARIN NA (PORCINE) 5,000 UNITS/ML 1ML VIAL SQ SCH ×3 (06:42→21:00)
[2022-02-18] MEDS: LEVOTHYROXINE 150 MCG, LEVOTHYROXINE 25 MCG PO SCH (06:42)
[2022-02-18] MEDS: INSULIN (LEVEMIR) 100 UNITS/ML UNITS SQ SCH (06:42)
[2022-02-18] MEDS: INSULIN SLIDING SCALE (NOVOLOG) 1 VIAL SQ SCH ×4 (06:42→21:01)
[2022-02-18 06:57] LABS: EOS % 6.7 % (0-4.5); HEMATOCRIT 33.7 % (32.4-45.2); HEMOGLOBIN 10.9 GM/dL (10.7-15.3); LYMPH % 44.2 % (8-40); MCHC 32.4 g/dl (32.0-36.0); MEAN CELL VOLUME 80.2 fl (80-96); MEAN PLT VOLUME 7.7 fl (7.5-11.1); MONO % 9.8 % (3.8-10.2); NEUT % 38.3 % (42.8-82.8); PLATELET COUNT 289 10^3/uL (134-434); RDW 16.1 % (11.6-15.6); WHITE BLOOD COUNT 6.7 K/mm3 (4.0-10.0)
[2022-02-18] MEDS ORDERED: ACETAMINOPHEN 1000 MG/100 ML BAG IVPB PRN (13:36)
[2022-02-18] MEDS: TAMSULOSIN HCL 0.4 MG CAP PO SCH (15:28)
[2022-02-18] MEDS: SENNOSIDES 8.6MG TABLET (FP) PO SCH (21:00)
[2022-02-18] MEDS: ATORVASTATIN CA 20 MG TABLET (FP) PO SCH (21:01)
[2022-02-18] MEDS: MONTELUKAST NA 10 MG TABLET PO SCH (21:01)
[2022-02-19] MEDS ORDERED: LEVOTHYROXINE NA 25 MCG TABLET (FP) ONE (05:33)
[2022-02-19] MEDS ORDERED: LEVOTHYROXINE NA 150 MCG TABLET ONE (05:33)
[2022-02-19] MEDS: HEPARIN NA (PORCINE) 5,000 UNITS/ML 1ML VIAL SQ SCH ×2 (05:53→14:50)
[2022-02-19] MEDS: INSULIN SLIDING SCALE (NOVOLOG) 1 VIAL SQ SCH ×2 (06:27→11:21)
[2022-02-19] MEDS: INSULIN (LEVEMIR) 100 UNITS/ML UNITS SQ SCH (06:27)
[2022-02-19] MEDS: LEVOTHYROXINE 150 MCG, LEVOTHYROXINE 25 MCG PO SCH (06:28)
[2022-02-19] MEDS ORDERED: INSULIN (NOVOLOG) ASPART 100 UNITS/ML 10ML VIAL ONE (06:42)
[2022-02-19] MEDS: SODIUM CHLORIDE 1,000 ML IV SCH ×3 (08:03→10:25)
[2022-02-19] MEDS: TAMSULOSIN HCL 0.4 MG CAP PO SCH (08:04)
[2022-02-19 13:50] VITALS: BP 123/82; PULSE 94; TEMP 98.3
[2022-02-19] MEDS ORDERED: INSULIN SLIDING SCALE (NOVOLOG) 1 VIAL SQ SCH (14:47)
[2022-02-19] MEDS ORDERED: INSULIN (LEVEMIR) 100 UNITS/ML UNITS SQ SCH ×2 (14:48→22:00)
== END 2022-02-19 17:05 | disposition home or self-care (01) | DRG 469 ==
LOC: JER 17:18 → JERBED 02-16 05:37 → J6S 02-16 10:20
PROVIDERS: ADMIT Hospitalist; ATTEND Family Medicine
DX: N17.9 Acute kidney failure, unspecified (principal); I10 Essential (primary) hypertension; I25.10 Atherosclerotic heart disease of native coronary artery without angina pectoris; I25.2 Old myocardial infarction; E78.5 Hyperlipidemia, unspecified; E03.9 Hypothyroidism, unspecified; M06.9 Rheumatoid arthritis, unspecified; E86.0 Dehydration; E11.649 Type 2 diabetes mellitus with hypoglycemia without coma; E11.65 Type 2 diabetes mellitus with hyperglycemia; I31.3 Pericardial effusion (noninflammatory)
CPT/HCPCS: 36415; 74176-TC; 76775-TC; 76856-TC; 80048; 80053; 81003; 82436; 82962; 83735; 83835; 84100; 84133; 84300; 84443; 85025; 85610; 85730; 87040; 87086; 93306-TC; 99285-25; C9803-CS; J1644; U0003; U0005

== ENCOUNTER 2022-03-16 13:31 | Inpatient (IN) | payer OTHER ==
[2022-03-16] MEDS ORDERED: ONDANSETRON 4 MG/2 ML VIAL IVPUSH ONE ×2 (15:10→19:04)
[2022-03-16] MEDS ORDERED: FAMOTIDINE 20 MG/50 ML IVPB 20 MG/50 ML MG IVPB ONE (15:11)
[2022-03-16] MEDS ORDERED: FAMOTIDINE 10 MG/ML VIAL IVPB ONE (15:33)
[2022-03-16] MEDS ORDERED: ONDANSETRON 4 MG/2 ML VIAL ONE ×2 (15:33→19:04)
[2022-03-16] MEDS: SODIUM CHLORIDE 0.9% 500 ML INFUS.BAG IV ONE ×2 (16:12→17:10)
[2022-03-16 16:42] LABS: BASO % 0.8 % (0-2.0); EOS % 0.7 % (0-4.5); HEMATOCRIT 37.9 % (32.4-45.2); HEMOGLOBIN 12.6 GM/dL (10.7-15.3); LYMPH % 24.5 % (8-40); MCH 26.3 pg (25.7-33.7); MCHC 33.3 g/dl (32.0-36.0); MEAN PLT VOLUME 7.2 fl (7.5-11.1); MONO % 8.6 % (3.8-10.2); NEUT % 65.4 % (42.8-82.8); PLATELET COUNT 414 10^3/uL (134-434); RDW 16.7 % (11.6-15.6); WHITE BLOOD COUNT 10.6 K/mm3 (4.0-10.0)
[2022-03-16 17:04] LABS: ALBUMIN 3.8 g/dl (3.4-5.0); BLOOD UREA NITROGEN 15.2 mg/dL (7-18); CALCIUM 9.7 mg/dL (8.5-10.1)
[2022-03-16 17:07] LABS: CREATININE 1.3 mg/dL (0.55-1.3)
[2022-03-16 17:10] LABS: BILIRUBIN,TOTAL 0.4 mg/dL (0.2-1); TOT PROT 7.9 g/dl (6.4-8.2)
[2022-03-16 17:14] LABS: EPI CELLS 26 /uL (0-25.1); HYALINE CASTS 2 /uL (0-3.1); PH,URINE 6.5 (5.0-8.0); URINE APPEARANCE CLEAR; URINE BACTERIA 307 /uL (0-1359); URINE BILIRUBIN NEGATIVE (NEGATIVE); URINE COLOR YELLOW; URINE GLUCOSE (UA) NEGATIVE (NEGATIVE); URINE KETONE 1+ (NEGATIVE); URINE LEUK ESTERASE NEGATIVE (NEGATIVE); URINE NITRITE NEGATIVE (NEGATIVE); URINE PROTEIN 3+ (NEGATIVE); URINE RBC 8 /uL (0-23.9); URINE UROBILINOGEN 0.2 mg/dL (0.2-1.0); URINE WBC 49 /uL (0-25.8)
[2022-03-16] MEDS ORDERED: DEXTROSE 50%-WATER 25 GM/50 ML DISP.SYRIN ONE (17:20)
[2022-03-16] MEDS ORDERED: DEXTROSE 50%-WATER - 25 GM/50 ML VIAL IVPUSH ONE (17:49)
[2022-03-16] MEDS ORDERED: ACETAMINOPHEN 1000 MG/100 ML BAG IVPB ONE (19:26)
[2022-03-16] MEDS ORDERED: ACETAMINOPHEN INJECTION 100 ML IVPB ONE (20:49)
[2022-03-17] MEDS ORDERED: TRIMETHOBENZAMIDE HCL 200MG/2ML INJ IM PRN (01:22)
[2022-03-17] MEDS ORDERED: HEPARIN NA (PORCINE) 5,000 UNITS/ML 1ML VIAL SQ SCH (02:00)
[2022-03-17] MEDS: SODIUM CHLORIDE 1,000 ML IV SCH ×2 (02:44→17:53)
[2022-03-17] MEDS: ACETAMINOPHEN 1000 MG/100 ML BAG IVPB PRN ×2 (02:44→23:13)
[2022-03-17 03:43] VITALS: BMI 34.9
[2022-03-17] MEDS: HEPARIN NA (PORCINE) 5,000 UNITS/ML 1ML VIAL SQ SCH ×3 (07:13→22:31)
[2022-03-17] MEDS ORDERED: METOCLOPRAMIDE HCL INJECTION 10 MG/2 ML VIAL IVPUSH SCH (10:45)
[2022-03-17] MEDS: LISINOPRIL 5 MG TABLET PO SCH (12:10)
[2022-03-17] MEDS: MONTELUKAST NA 10 MG TABLET PO SCH (12:10)
[2022-03-17] MEDS: FAMOTIDINE 20 MG TABLET PO SCH (12:10)
[2022-03-17] MEDS: METOCLOPRAMIDE HCL INJECTION 10 MG/2 ML VIAL IVPUSH SCH ×2 (12:11→18:50)
[2022-03-17] MEDS: FOLIC ACID 1 MG TABLET (FP) PO SCH (12:11)
[2022-03-17] MEDS: LEVOTHYROXINE NA 150 MCG TABLET PO SCH (16:14)
[2022-03-17] MEDS ORDERED: metoPROLOL SUCCINATE 25 MG TAB.SR.24H (FP) PO SCH (22:00)
[2022-03-17] MEDS ORDERED: SENNOSIDES 8.6MG TABLET (FP) PO SCH (22:00)
[2022-03-17] MEDS: ATORVASTATIN CA 20 MG TABLET (FP) PO SCH (22:31)
[2022-03-17] MEDS: metoPROLOL SUCCINATE 25 MG TAB.SR.24H (FP) PO SCH (22:31)
[2022-03-18] MEDS: METOCLOPRAMIDE HCL INJECTION 10 MG/2 ML VIAL IVPUSH SCH ×3 (03:22→17:56)
[2022-03-18] MEDS: LEVOTHYROXINE NA 150 MCG TABLET PO SCH (06:15)
[2022-03-18] MEDS: HEPARIN NA (PORCINE) 5,000 UNITS/ML 1ML VIAL SQ SCH ×3 (06:15→21:40)
[2022-03-18] MEDS: SODIUM CHLORIDE 1,000 ML IV SCH (06:18)
[2022-03-18 07:59] LABS: BASO % 0.8 % (0-2.0); EOS % 2.8 % (0-4.5); HEMATOCRIT 33.6 % (32.4-45.2); HEMOGLOBIN 11.1 GM/dL (10.7-15.3); LYMPH % 15.7 % (8-40); MCH 26.4 pg (25.7-33.7); MEAN PLT VOLUME 7.4 fl (7.5-11.1); MONO % 16.4 % (3.8-10.2); NEUT % 64.3 % (42.8-82.8); PLATELET COUNT 274 10^3/uL (134-434); RDW 16.6 % (11.6-15.6); WHITE BLOOD COUNT 6.2 K/mm3 (4.0-10.0)
[2022-03-18 08:18] LABS: ACTIVATED PTT 26.6 SECONDS (25.2-36.5); INR 1.14 (0.83-1.09); PROTHROMBIN TIME (PATIENT) 13.1 SEC (9.7-13.0)
[2022-03-18 08:23] LABS: CREATININE 1.1 mg/dL (0.55-1.3)
[2022-03-18 08:24] LABS: CALCIUM 8.9 mg/dL (8.5-10.1); MAGNESIUM 2.1 mg/dL (1.8-2.4)
[2022-03-18] MEDS: LISINOPRIL 5 MG TABLET PO SCH (09:28)
[2022-03-18] MEDS: MONTELUKAST NA 10 MG TABLET PO SCH (09:28)
[2022-03-18] MEDS: FAMOTIDINE 20 MG TABLET PO SCH (09:28)
[2022-03-18] MEDS: FOLIC ACID 1 MG TABLET (FP) PO SCH (09:29)
[2022-03-18] MEDS ORDERED: POLYETHYLENE GLYCOL (HEALTHYLAX) 3350 17 GM PACKET PO SCH (10:00)
[2022-03-18] MEDS: ACETAMINOPHEN 325 MG TABLET (FP) PO PRN (19:31)
[2022-03-18] MEDS: ATORVASTATIN CA 20 MG TABLET (FP) PO SCH (21:39)
[2022-03-18] MEDS: metoPROLOL SUCCINATE 25 MG TAB.SR.24H (FP) PO SCH (21:39)
[2022-03-18] MEDS: POLYETHYLENE GLYCOL (HEALTHYLAX) 3350 17 GM PACKET PO SCH (21:40)
[2022-03-19] MEDS: SODIUM CHLORIDE 1,000 ML IV SCH (00:40)
[2022-03-19] MEDS: METOCLOPRAMIDE HCL INJECTION 10 MG/2 ML VIAL IVPUSH SCH ×3 (02:17→17:46)
[2022-03-19] MEDS: HEPARIN NA (PORCINE) 5,000 UNITS/ML 1ML VIAL SQ SCH ×3 (05:52→21:45)
[2022-03-19] MEDS: LEVOTHYROXINE NA 150 MCG TABLET PO SCH (06:09)
[2022-03-19] MEDS: POLYETHYLENE GLYCOL (HEALTHYLAX) 3350 17 GM PACKET PO SCH ×2 (09:33→21:45)
[2022-03-19] MEDS: FOLIC ACID 1 MG TABLET (FP) PO SCH (09:33)
[2022-03-19] MEDS: MONTELUKAST NA 10 MG TABLET PO SCH (09:34)
[2022-03-19] MEDS: LISINOPRIL 5 MG TABLET PO SCH (09:34)
[2022-03-19] MEDS: FAMOTIDINE 20 MG TABLET PO SCH (09:34)
[2022-03-19 10:14] LABS: SARS-CoV-2 NAA Not Detected (Not Detected)
[2022-03-19] MEDS: ATORVASTATIN CA 20 MG TABLET (FP) PO SCH (21:45)
[2022-03-19] MEDS: metoPROLOL SUCCINATE 25 MG TAB.SR.24H (FP) PO SCH (21:45)
[2022-03-20] MEDS: METOCLOPRAMIDE HCL INJECTION 10 MG/2 ML VIAL IVPUSH SCH ×2 (01:45→09:49)
[2022-03-20] MEDS: LEVOTHYROXINE NA 150 MCG TABLET PO SCH (06:22)
[2022-03-20] MEDS: HEPARIN NA (PORCINE) 5,000 UNITS/ML 1ML VIAL SQ SCH ×3 (06:22→21:48)
[2022-03-20] MEDS: SODIUM CHLORIDE 1,000 ML IV SCH (06:35)
[2022-03-20] MEDS: ACETAMINOPHEN 325 MG TABLET (FP) PO PRN (09:48)
[2022-03-20] MEDS: POLYETHYLENE GLYCOL (HEALTHYLAX) 3350 17 GM PACKET PO SCH ×2 (09:48→21:48)
[2022-03-20] MEDS: FAMOTIDINE 20 MG TABLET PO SCH (09:49)
[2022-03-20] MEDS: FOLIC ACID 1 MG TABLET (FP) PO SCH (09:49)
[2022-03-20] MEDS: LISINOPRIL 5 MG TABLET PO SCH (09:49)
[2022-03-20] MEDS: MONTELUKAST NA 10 MG TABLET PO SCH (09:49)
[2022-03-20] MEDS ORDERED: BISACODYL 10 MG SUPP.RECT PR ONE ×3 (14:22→18:00)
[2022-03-20] MEDS: METOCLOPRAMIDE HCL 10 MG TABLET (FP) PO SCH (17:10)
[2022-03-20] MEDS: INSULIN SLIDING SCALE (NOVOLOG) 1 VIAL SQ SCH ×2 (19:55→21:59)
[2022-03-20] MEDS: ATORVASTATIN CA 20 MG TABLET (FP) PO SCH (21:48)
[2022-03-20] MEDS: metoPROLOL SUCCINATE 25 MG TAB.SR.24H (FP) PO SCH (21:50)
[2022-03-20] MEDS: INSULIN (LEVEMIR) 100 UNITS/ML UNITS SQ SCH (21:58)
[2022-03-21] MEDS: HEPARIN NA (PORCINE) 5,000 UNITS/ML 1ML VIAL SQ SCH ×2 (06:30→14:14)
[2022-03-21] MEDS: INSULIN SLIDING SCALE (NOVOLOG) 1 VIAL SQ SCH ×3 (06:30→17:58)
[2022-03-21] MEDS: POLYETHYLENE GLYCOL (HEALTHYLAX) 3350 17 GM PACKET PO SCH ×2 (06:30→14:14)
[2022-03-21] MEDS: LEVOTHYROXINE NA 150 MCG TABLET PO SCH (06:31)
[2022-03-21] MEDS: METOCLOPRAMIDE HCL 10 MG TABLET (FP) PO SCH ×3 (06:31→17:58)
[2022-03-21 07:40] LABS: BASO % 0.9 % (0-2.0); EOS % 6.8 % (0-4.5); HEMATOCRIT 31.1 % (32.4-45.2); HEMOGLOBIN 10.5 GM/dL (10.7-15.3); LYMPH % 33.6 % (8-40); MCH 26.7 pg (25.7-33.7); MCHC 33.6 g/dl (32.0-36.0); MEAN CELL VOLUME 79.3 fl (80-96); MEAN PLT VOLUME 7.7 fl (7.5-11.1); MONO % 14.3 % (3.8-10.2); NEUT % 44.4 % (42.8-82.8); PLATELET COUNT 259 10^3/uL (134-434); RBC 3.92 M/mm3 (3.60-5.2); RDW 16.9 % (11.6-15.6); WHITE BLOOD COUNT 5.8 K/mm3 (4.0-10.0)
[2022-03-21 08:33] LABS: BLOOD UREA NITROGEN 13.6 mg/dL (7-18)
[2022-03-21 08:34] LABS: ALBUMIN 3.1 g/dl (3.4-5.0); CALCIUM 8.8 mg/dL (8.5-10.1)
[2022-03-21 08:38] LABS: BILIRUBIN,TOTAL 0.5 mg/dL (0.2-1); TOT PROT 6.3 g/dl (6.4-8.2)
[2022-03-21] MEDS: MONTELUKAST NA 10 MG TABLET PO SCH (09:45)
[2022-03-21] MEDS: FAMOTIDINE 20 MG TABLET PO SCH (09:46)
[2022-03-21] MEDS: FOLIC ACID 1 MG TABLET (FP) PO SCH (09:46)
[2022-03-21] MEDS: INSULIN (LEVEMIR) 100 UNITS/ML UNITS SQ SCH (09:46)
[2022-03-21] MEDS: LISINOPRIL 5 MG TABLET PO SCH (09:46)
[2022-03-21 16:00] VITALS: BP 149/84; PULSE 95; TEMP 99
[2022-03-22 14:12] LABS: SARS-CoV-2 NAA Not Detected (Not Detected)
== END 2022-03-21 18:42 | disposition home or self-care (01) | DRG 48 ==
LOC: JER 13:31 → JERBED 19:00 → J7W 03-17 02:25 → J4W 03-17 23:04
PROVIDERS: ADMIT Hospitalist; ATTEND Family Medicine
DX: E11.43 Type 2 diabetes mellitus with diabetic autonomic (poly)neuropathy (principal); E11.649 Type 2 diabetes mellitus with hypoglycemia without coma; K31.84 Gastroparesis; K43.9 Ventral hernia without obstruction or gangrene; M06.9 Rheumatoid arthritis, unspecified; N39.0 Urinary tract infection, site not specified; R10.9 Unspecified abdominal pain; R00.0 Tachycardia, unspecified; D72.829 Elevated white blood cell count, unspecified; I25.10 Atherosclerotic heart disease of native coronary artery without angina pectoris; Z98.61 Coronary angioplasty status; Z79.4 Long term (current) use of insulin
CPT/HCPCS: 0241U-QW; 36415; 71045-TC-FY; 71046-TC-FY; 74176-TC; 80048; 80053; 81003; 82010; 82803; 82962; 83036; 83605; 83690; 83735; 84443; 84484; 85025; 85610; 85730; 87086; 93005; 93010; 99285-25; C9803-CS; J1644; U0003; U0005

== ENCOUNTER 2022-05-12 17:06 | Inpatient (IN) | payer OTHER ==
[2022-05-12] MEDS ORDERED: ONDANSETRON 4 MG/2 ML VIAL IVPB ONE (18:01)
[2022-05-12] MEDS ORDERED: SODIUM CHLORIDE 0.9% 500 ML INFUS.BAG IV ONE (18:01)
[2022-05-12] MEDS ORDERED: MAG HYDROX/AL HYDROX/SIMETH 30 ML UNIT-DOSE CUP PO ONE (18:03)
[2022-05-12] MEDS ORDERED: FAMOTIDINE 20 MG/50 ML IVPB 20 MG/50 ML MG IVPB ONE ×2 (18:03→19:39)
[2022-05-12] MEDS ORDERED: ACETAMINOPHEN 1000 MG/100 ML BAG IVPB ONE (18:17)
[2022-05-12] MEDS ORDERED: ACETAMINOPHEN INJECTION 100 ML IVPB ONE (18:25)
[2022-05-12] MEDS ORDERED: ONDANSETRON 4 MG/2 ML VIAL ONE ×2 (18:25→23:27)
[2022-05-12 18:43] LABS: BASO % 0.7 % (0-2.0); EOS % 0.8 % (0-4.5); HEMATOCRIT 40.2 % (32.4-45.2); HEMOGLOBIN 13.1 GM/dL (10.7-15.3); LYMPH % 20.4 % (8-40); MCHC 32.5 g/dl (32.0-36.0); MEAN PLT VOLUME 7.4 fl (7.5-11.1); MONO % 9.4 % (3.8-10.2); NEUT % 68.7 % (42.8-82.8); PLATELET COUNT 409 10^3/uL (134-434); RBC 5.03 M/mm3 (3.60-5.2); RDW 15.8 % (11.6-15.6); WHITE BLOOD COUNT 12.5 K/mm3 (4.0-10.0)
[2022-05-12] MEDS ORDERED: MAG HYDROX/AL HYDROX/SIMETH 30 ML UNIT-DOSE CUP ONE (19:39)
[2022-05-12] MEDS ORDERED: morphine CARPU-JECT 4 MG/1 ML DISP.SYRIN IVPUSH ONE (19:55)
[2022-05-12 20:41] LABS: CALCIUM 9.5 mg/dL (8.5-10.1)
[2022-05-12 20:42] LABS: ALBUMIN 3.7 g/dl (3.4-5.0)
[2022-05-12 20:46] LABS: BILIRUBIN,TOTAL 0.7 mg/dL (0.2-1); CREATININE 1.4 mg/dL (0.55-1.3); TOT PROT 8.3 g/dl (6.4-8.2)
[2022-05-12] MEDS ORDERED: ONDANSETRON 4 MG/2 ML VIAL IVPUSH ONE (22:35)
[2022-05-12] MEDS ORDERED: KETOROLAC TROMETHAMINE 15 MG/ML VIAL IVPUSH ONE (23:32)
[2022-05-12] MEDS ORDERED: KETOROLAC TROMETHAMINE 15 MG/ML VIAL ONE (23:37)
[2022-05-13] MEDS ORDERED: DEXTROSE 50%-WATER 25 GM/50 ML DISP.SYRIN ONE (02:31)
[2022-05-13] MEDS ORDERED: DEXTROSE 50%-WATER - 25 GM/50 ML VIAL IVPUSH ONE (02:32)
[2022-05-13 03:32] LABS: EPI CELLS >36 /uL (0-25.1); HYALINE CASTS 3 /uL (0-3.1); URINE APPEARANCE CLOUDY; URINE BACTERIA 6862 /uL (0-1359); URINE BILIRUBIN NEGATIVE (NEGATIVE); URINE COLOR YELLOW; URINE GLUCOSE (UA) NEGATIVE (NEGATIVE); URINE KETONE TRACE (NEGATIVE); URINE LEUK ESTERASE NEGATIVE (NEGATIVE); URINE NITRITE NEGATIVE (NEGATIVE); URINE PROTEIN 3+ (NEGATIVE); URINE RBC 10 /uL (0-23.9); URINE UROBILINOGEN 0.2 mg/dL (0.2-1.0)
[2022-05-13] MEDS ORDERED: POLYETHYLENE GLYCOL (HEALTHYLAX) 3350 17 GM PACKET PO PRN (03:35)
[2022-05-13] MEDS ORDERED: ACETAMINOPHEN 1000 MG/100 ML BAG IVPB PRN (03:44)
[2022-05-13] MEDS ORDERED: MAG HYDROX/AL HYDROX/SIMETH 30 ML UNIT-DOSE CUP PO PRN (03:44)
[2022-05-13] MEDS ORDERED: DEXTROSE 5%-NORMAL SALINE 1,000 ML IV SCH (03:45)
[2022-05-13] MEDS ORDERED: HEPARIN NA (PORCINE) 5,000 UNITS/ML 1ML VIAL ONE (05:36)
[2022-05-13] MEDS ORDERED: ONDANSETRON 4 MG/2 ML VIAL IVPUSH PRN (08:24)
[2022-05-13] MEDS ORDERED: METHOTREXATE 2.5 MG TABLET PO SCH (08:30)
[2022-05-13] MEDS: INSULIN SLIDING SCALE (NOVOLOG) 1 VIAL SQ SCH ×4 (09:19→21:56)
[2022-05-13] MEDS ORDERED: ONDANSETRON 4 MG/2 ML VIAL ONE ×3 (09:27→18:40)
[2022-05-13] MEDS ORDERED: ACETAMINOPHEN INJECTION 100 ML IVPB ONE (09:27)
[2022-05-13] MEDS: ONDANSETRON 4 MG/2 ML VIAL IVPB SCH ×4 (09:40→21:45)
[2022-05-13] MEDS ORDERED: PANTOPRAZOLE SODIUM 40 MG VIAL IVPUSH SCH (10:00)
[2022-05-13] MEDS ORDERED: SODIUM BICARBONATE 325 MG TABLET PO SCH (10:00)
[2022-05-13] MEDS ORDERED: PANTOPRAZOLE SODIUM 40 MG in SODIUM CHLORIDE 100 ML IVPUSH SCH (10:30)
[2022-05-13] MEDS ORDERED: SODIUM CHLORIDE 1,000 ML IV ONE (10:45)
[2022-05-13] MEDS ORDERED: ONDANSETRON 4 MG/2 ML VIAL IVPB SCH (10:45)
[2022-05-13] MEDS ORDERED: METOCLOPRAMIDE HCL 10 MG TABLET (FP) PO SCH (11:00)
[2022-05-13] MEDS: SODIUM BICARBONATE 650 MG TABLET PO SCH (12:15)
[2022-05-13] MEDS ORDERED: METOCLOPRAMIDE HCL INJECTION 10 MG/2 ML VIAL ONE ×3 (12:16→19:05)
[2022-05-13] MEDS ORDERED: PANTOPRAZOLE SODIUM 40 MG/100 ML BAG IVPB ONE (12:16)
[2022-05-13] MEDS: LISINOPRIL 10 MG TABLET PO SCH (12:22)
[2022-05-13] MEDS: PANTOPRAZOLE SODIUM 40 MG VIAL IVPUSH SCH ×2 (12:26→21:44)
[2022-05-13] MEDS: METOCLOPRAMIDE HCL INJECTION 10 MG/2 ML VIAL IVPB SCH ×2 (12:26→19:16)
[2022-05-13] MEDS ORDERED: HYDROmorphone HCl 2 MG/ML VIAL ONE ×2 (15:04→19:05)
[2022-05-13] MEDS: HYDROmorphone HCl 2 MG/ML VIAL IM PRN (15:10)
[2022-05-13] MEDS: SODIUM CHLORIDE 1,000 ML IV SCH (18:38)
[2022-05-13] MEDS: HEPARIN NA (PORCINE) 5,000 UNITS/ML 1ML VIAL SQ SCH (21:46)
[2022-05-13 23:33] VITALS: BMI 35.2
[2022-05-14] MEDS ORDERED: ONDANSETRON 4 MG/2 ML VIAL IVPB PRN (02:30)
[2022-05-14] MEDS: METOCLOPRAMIDE HCL INJECTION 10 MG/2 ML VIAL IVPB SCH ×3 (02:32→17:53)
[2022-05-14] MEDS: HYDROmorphone HCl 2 MG/ML VIAL IM PRN ×3 (02:45→19:49)
[2022-05-14] MEDS: INSULIN SLIDING SCALE (NOVOLOG) 1 VIAL SQ SCH ×4 (06:20→22:19)
[2022-05-14] MEDS: HEPARIN NA (PORCINE) 5,000 UNITS/ML 1ML VIAL SQ SCH ×4 (06:20→22:19)
[2022-05-14] MEDS: LEVOTHYROXINE NA 150 MCG TABLET PO SCH ×2 (06:50→11:27)
[2022-05-14] MEDS: SODIUM BICARBONATE 650 MG TABLET PO SCH (09:27)
[2022-05-14] MEDS: PANTOPRAZOLE SODIUM 40 MG VIAL IVPUSH SCH ×2 (09:27→22:21)
[2022-05-14] MEDS: SODIUM CHLORIDE 1,000 ML IV SCH ×2 (09:27→19:33)
[2022-05-14] MEDS: LISINOPRIL 10 MG TABLET PO SCH (09:42)
[2022-05-14 10:54] LABS: BASO % 0.8 % (0-2.0); EOS % 5.1 % (0-4.5); HEMOGLOBIN 10.7 GM/dL (10.7-15.3); LYMPH % 25.4 % (8-40); MCH 26.8 pg (25.7-33.7); MCHC 33.5 g/dl (32.0-36.0); MEAN PLT VOLUME 7.4 fl (7.5-11.1); MONO % 12.3 % (3.8-10.2); NEUT % 56.4 % (42.8-82.8); PLATELET COUNT 311 10^3/uL (134-434); RDW 15.5 % (11.6-15.6); WHITE BLOOD COUNT 8.2 K/mm3 (4.0-10.0)
[2022-05-14 11:12] LABS: ALBUMIN 3.1 g/dl (3.4-5.0); CALCIUM 8.9 mg/dL (8.5-10.1)
[2022-05-14 11:13] LABS: BILIRUBIN,TOTAL 0.4 mg/dL (0.2-1); CREATININE 1.2 mg/dL (0.55-1.3); TOT PROT 6.5 g/dl (6.4-8.2)
[2022-05-14 11:38] LABS: ERYTHROCYTE SEDIMENTATION RATE 25 mm/hr (0-30)
[2022-05-15] MEDS: HYDROmorphone HCl 2 MG/ML VIAL IM PRN ×2 (00:02→04:11)
[2022-05-15] MEDS: METOCLOPRAMIDE HCL INJECTION 10 MG/2 ML VIAL IVPB SCH ×3 (02:02→18:29)
[2022-05-15] MEDS: DEXTROSE 5%-NORMAL SALINE 1,000 ML IV SCH (04:00)
[2022-05-15] MEDS: HEPARIN NA (PORCINE) 5,000 UNITS/ML 1ML VIAL SQ SCH ×3 (06:05→21:32)
[2022-05-15] MEDS: INSULIN SLIDING SCALE (NOVOLOG) 1 VIAL SQ SCH ×4 (06:07→21:33)
[2022-05-15] MEDS: LEVOTHYROXINE NA 75 MCG TABLET (FP) PO SCH (06:49)
[2022-05-15] MEDS: LISINOPRIL 10 MG TABLET PO SCH (10:24)
[2022-05-15] MEDS: PANTOPRAZOLE SODIUM 40 MG VIAL IVPUSH SCH ×2 (10:25→21:34)
[2022-05-15] MEDS: SODIUM BICARBONATE 650 MG TABLET PO SCH (10:26)
[2022-05-15] MEDS: ONDANSETRON 4 MG/2 ML VIAL IVPB SCH (17:32)
[2022-05-15 20:05] LABS: BASO % 1.3 % (0-2.0); EOS % 7.4 % (0-4.5); HEMATOCRIT 32.3 % (32.4-45.2); HEMOGLOBIN 10.7 GM/dL (10.7-15.3); LYMPH % 23.3 % (8-40); MCH 26.4 pg (25.7-33.7); MCHC 33.1 g/dl (32.0-36.0); MEAN CELL VOLUME 79.9 fl (80-96); MEAN PLT VOLUME 7.5 fl (7.5-11.1); MONO % 8.9 % (3.8-10.2); NEUT % 59.1 % (42.8-82.8); PLATELET COUNT 308 10^3/uL (134-434); RBC 4.04 M/mm3 (3.60-5.2); RDW 15.9 % (11.6-15.6); WHITE BLOOD COUNT 7.1 K/mm3 (4.0-10.0)
[2022-05-15 20:26] LABS: CALCIUM 8.9 mg/dL (8.5-10.1)
[2022-05-15 20:27] LABS: BLOOD UREA NITROGEN 9.5 mg/dL (7-18)
[2022-05-15 20:30] LABS: CREATININE 1.2 mg/dL (0.55-1.3)
[2022-05-15 20:32] LABS: BILIRUBIN,TOTAL 0.3 mg/dL (0.2-1); TOT PROT 6.6 g/dl (6.4-8.2)
[2022-05-16] MEDS: ONDANSETRON 4 MG/2 ML VIAL IVPB SCH ×3 (01:30→17:09)
[2022-05-16] MEDS: METOCLOPRAMIDE HCL INJECTION 10 MG/2 ML VIAL IVPB SCH ×2 (03:13→11:07)
[2022-05-16] MEDS: DEXTROSE 5%-NORMAL SALINE 1,000 ML IV SCH (04:58)
[2022-05-16] MEDS: HEPARIN NA (PORCINE) 5,000 UNITS/ML 1ML VIAL SQ SCH ×3 (06:21→21:36)
[2022-05-16] MEDS: LEVOTHYROXINE NA 75 MCG TABLET (FP) PO SCH (06:22)
[2022-05-16] MEDS: INSULIN SLIDING SCALE (NOVOLOG) 1 VIAL SQ SCH ×4 (06:23→21:37)
[2022-05-16] MEDS: SODIUM BICARBONATE 650 MG TABLET PO SCH (11:03)
[2022-05-16] MEDS: LISINOPRIL 10 MG TABLET PO SCH (11:04)
[2022-05-16] MEDS: PANTOPRAZOLE SODIUM 40 MG VIAL IVPUSH SCH ×2 (11:07→21:37)
[2022-05-16] MEDS ORDERED: INSULIN (NOVOLOG) ASPART 100 UNITS/ML 10ML VIAL ONE (11:54)
[2022-05-16] MEDS ORDERED: ONDANSETRON *ODT* 4 MG TABLET SL PRN (16:14)
[2022-05-16] MEDS: METOCLOPRAMIDE HCL 10 MG TABLET (FP) PO SCH (17:10)
[2022-05-16] MEDS: SERTRALINE HCL 25 MG TABLET (FP) PO SCH (17:10)
[2022-05-16] MEDS: ACETAMINOPHEN 325 MG TABLET (FP) PO PRN (19:06)
[2022-05-17] MEDS: ONDANSETRON 4 MG/2 ML VIAL IVPUSH PRN ×3 (05:35→22:23)
[2022-05-17] MEDS: DEXTROSE 5%-NORMAL SALINE 1,000 ML IV SCH (05:36)
[2022-05-17] MEDS: METOCLOPRAMIDE HCL 10 MG TABLET (FP) PO SCH ×3 (06:31→17:10)
[2022-05-17] MEDS: LEVOTHYROXINE NA 75 MCG TABLET (FP) PO SCH (06:31)
[2022-05-17] MEDS: HEPARIN NA (PORCINE) 5,000 UNITS/ML 1ML VIAL SQ SCH ×3 (06:31→21:45)
[2022-05-17] MEDS: INSULIN SLIDING SCALE (NOVOLOG) 1 VIAL SQ SCH ×4 (06:32→21:45)
[2022-05-17] MEDS: SERTRALINE HCL 25 MG TABLET (FP) PO SCH (10:12)
[2022-05-17] MEDS: PANTOPRAZOLE SODIUM 40 MG VIAL IVPUSH SCH ×2 (10:12→21:45)
[2022-05-17] MEDS: LISINOPRIL 10 MG TABLET PO SCH (10:13)
[2022-05-17] MEDS: SODIUM BICARBONATE 650 MG TABLET PO SCH (10:13)
[2022-05-17] MEDS: ACETAMINOPHEN 325 MG TABLET (FP) PO PRN ×2 (10:21→21:56)
[2022-05-17] MEDS ORDERED: INSULIN (NOVOLOG) ASPART 100 UNITS/ML 10ML VIAL ONE (12:16)
[2022-05-17] MEDS ORDERED: amLODIPine BESYLATE 5 MG TABLET (FP) PO SCH (16:00)
[2022-05-17] MEDS: amLODIPine BESYLATE 5 MG TABLET (FP) PO SCH (17:10)
[2022-05-18] MEDS: ONDANSETRON 4 MG/2 ML VIAL IVPUSH PRN (03:03)
[2022-05-18 03:07] LABS: PROTEIN S, FREE 113 % (61-136)
[2022-05-18 04:06] LABS: DRVVT - 42.2 sec (0.0-47.0)
[2022-05-18] MEDS: HEPARIN NA (PORCINE) 5,000 UNITS/ML 1ML VIAL SQ SCH ×2 (06:05→14:16)
[2022-05-18] MEDS: METOCLOPRAMIDE HCL 10 MG TABLET (FP) PO SCH ×2 (06:05→11:44)
[2022-05-18] MEDS: LEVOTHYROXINE NA 75 MCG TABLET (FP) PO SCH (06:06)
[2022-05-18] MEDS: DEXTROSE 5%-NORMAL SALINE 1,000 ML IV SCH (06:09)
[2022-05-18] MEDS: INSULIN SLIDING SCALE (NOVOLOG) 1 VIAL SQ SCH ×2 (06:59→11:38)
[2022-05-18] MEDS: amLODIPine BESYLATE 5 MG TABLET (FP) PO SCH (09:48)
[2022-05-18] MEDS: LISINOPRIL 10 MG TABLET PO SCH (09:48)
[2022-05-18] MEDS: SERTRALINE HCL 25 MG TABLET (FP) PO SCH (09:49)
[2022-05-18] MEDS: PANTOPRAZOLE SODIUM 40 MG VIAL IVPUSH SCH (09:49)
[2022-05-18] MEDS: SODIUM BICARBONATE 650 MG TABLET PO SCH (09:49)
[2022-05-18 15:18] VITALS: PULSE 95; TEMP 99
[2022-05-18 15:22] VITALS: BP 152/82
== END 2022-05-18 17:04 | disposition home or self-care (01) | DRG 48 ==
LOC: JER 17:06 → JERBED 05-13 02:36 → J8W 05-13 21:06
PROVIDERS: ADMIT Internal Medicine; ATTEND Family Medicine
DX: E11.43 Type 2 diabetes mellitus with diabetic autonomic (poly)neuropathy (principal); I10 Essential (primary) hypertension; E03.9 Hypothyroidism, unspecified; I25.10 Atherosclerotic heart disease of native coronary artery without angina pectoris; M06.9 Rheumatoid arthritis, unspecified; R11.15 Cyclical vomiting syndrome unrelated to migraine; K31.84 Gastroparesis; Z98.61 Coronary angioplasty status; E86.0 Dehydration
CPT/HCPCS: 0241U-QW; 36415; 71045-TC-FY; 71250-TC; 74018-TC-FY; 74176-TC; 80048; 80053; 81003; 82962; 83690; 83735; 84443; 84484; 85025; 85303; 85305; 85306; 85613; 85651; 85732; 86140; 87086; 93005; 93010; 99285-25; J1644; Q0162

== ENCOUNTER 2022-06-07 12:11 | Inpatient (IN) | payer OTHER ==
[2022-06-07] MEDS ORDERED: SODIUM CHLORIDE 0.9% 500 ML INFUS.BAG IV ONE (14:22)
[2022-06-07] MEDS ORDERED: FAMOTIDINE 20 MG/50 ML IVPB 20 MG/50 ML MG IVPB ONE ×2 (14:22→14:38)
[2022-06-07] MEDS ORDERED: ONDANSETRON 4 MG/2 ML VIAL IVPUSH ONE ×2 (14:22→17:43)
[2022-06-07] MEDS ORDERED: ONDANSETRON 4 MG/2 ML VIAL ONE ×3 (14:38→23:13)
[2022-06-07 17:05] LABS: BASO % 0.8 % (0-2.0); EOS % 0.8 % (0-4.5); HEMATOCRIT 43.6 % (32.4-45.2); HEMOGLOBIN 14.2 GM/dL (10.7-15.3); LYMPH % 17.8 % (8-40); MCH 26.3 pg (25.7-33.7); MCHC 32.7 g/dl (32.0-36.0); MEAN CELL VOLUME 80.6 fl (80-96); MEAN PLT VOLUME 7.8 fl (7.5-11.1); MONO % 6.3 % (3.8-10.2); NEUT % 74.3 % (42.8-82.8); PLATELET COUNT 423 10^3/uL (134-434); RBC 5.41 M/mm3 (3.60-5.2); RDW 15.2 % (11.6-15.6); WHITE BLOOD COUNT 12.2 K/mm3 (4.0-10.0)
[2022-06-07 17:19] LABS: ALBUMIN 3.7 g/dl (3.4-5.0); BLOOD UREA NITROGEN 20.4 mg/dL (7-18); CALCIUM 9.5 mg/dL (8.5-10.1)
[2022-06-07 17:22] LABS: CREATININE 1.5 mg/dL (0.55-1.3)
[2022-06-07 17:23] LABS: TOT PROT 8.4 g/dl (6.4-8.2)
[2022-06-07 17:24] LABS: BILIRUBIN,TOTAL 0.6 mg/dL (0.2-1)
[2022-06-07] MEDS ORDERED: morphine CARPU-JECT 2 MG/1 ML DISP.SYRIN IVPUSH ONE ×2 (18:50→20:28)
[2022-06-07 21:30] LABS: VENOUS BASE EXCESS 1.8 mmol/L (-2-2); VENOUS O2 SATURATION 93.9 % (70-80); VENOUS PCO2 34.2 mmHg (38-52); VENOUS PH 7.479 (7.310-7.410)
[2022-06-07 21:42] LABS: INR 1.28 (0.83-1.09); PROTHROMBIN TIME (PATIENT) 14.7 SEC (9.7-13.0)
[2022-06-07 21:45] LABS: ACTIVATED PTT 30.3 SECONDS (25.2-36.5)
[2022-06-07] MEDS ORDERED: INSULIN SLIDING SCALE (NOVOLOG) 1 VIAL SQ SCH (22:00)
[2022-06-07] MEDS: SODIUM CHLORIDE 1,000 ML IV SCH (23:23)
[2022-06-07] MEDS: ONDANSETRON 4 MG/2 ML VIAL IVPUSH PRN (23:23)
[2022-06-08] MEDS ORDERED: ALBUTEROL SO4 HFA INHALER IH PRN (01:24)
[2022-06-08] MEDS: METOCLOPRAMIDE HCL INJECTION 10 MG/2 ML VIAL IVPUSH SCH ×3 (02:45→20:25)
[2022-06-08] MEDS ORDERED: METOCLOPRAMIDE HCL INJECTION 10 MG/2 ML VIAL ONE ×3 (02:46→20:41)
[2022-06-08] MEDS ORDERED: ONDANSETRON 4 MG/2 ML VIAL ONE ×2 (06:30→17:43)
[2022-06-08] MEDS: ONDANSETRON 4 MG/2 ML VIAL IVPUSH PRN (06:38)
[2022-06-08] MEDS: LEVOTHYROXINE NA 150 MCG TABLET PO SCH (07:40)
[2022-06-08] MEDS ORDERED: LEVOTHYROXINE NA 50 MCG TABLET (FP) ONE (08:25)
[2022-06-08 08:32] LABS: BASO % 0.8 % (0-2.0); EOS % 1.8 % (0-4.5); HEMATOCRIT 37.1 % (32.4-45.2); HEMOGLOBIN 12.3 GM/dL (10.7-15.3); LYMPH % 24.3 % (8-40); MCH 26.4 pg (25.7-33.7); MCHC 33.2 g/dl (32.0-36.0); MEAN CELL VOLUME 79.6 fl (80-96); MEAN PLT VOLUME 7.7 fl (7.5-11.1); MONO % 9.6 % (3.8-10.2); NEUT % 63.5 % (42.8-82.8); PLATELET COUNT 382 10^3/uL (134-434); RBC 4.66 M/mm3 (3.60-5.2); RDW 15.1 % (11.6-15.6); WHITE BLOOD COUNT 9.7 K/mm3 (4.0-10.0)
[2022-06-08 08:55] LABS: CALCIUM 9.1 mg/dL (8.5-10.1); MAGNESIUM 1.9 mg/dL (1.8-2.4)
[2022-06-08 08:59] LABS: CREATININE 1.4 mg/dL (0.55-1.3); PHOSPHOROUS 2.5 mg/dL (2.5-4.9)
[2022-06-08] MEDS ORDERED: LEFLUNOMIDE 20 MG PO SCH (10:00)
[2022-06-08] MEDS: LISINOPRIL 10 MG TABLET PO SCH (11:00)
[2022-06-08] MEDS: SODIUM BICARBONATE 325 MG TABLET PO SCH (11:00)
[2022-06-08] MEDS ORDERED: LISINOPRIL 20 MG TABLET ONE (11:34)
[2022-06-08] MEDS ORDERED: HEPARIN NA (PORCINE) 5,000 UNITS/ML 1ML VIAL ONE ×2 (11:34→21:03)
[2022-06-08] MEDS: HEPARIN NA (PORCINE) 5,000 UNITS/ML 1ML VIAL SQ SCH ×3 (12:00→21:55)
[2022-06-08] MEDS: ONDANSETRON 4 MG/2 ML VIAL IVPUSH SCH ×3 (17:30→23:36)
[2022-06-08] MEDS: SODIUM CHLORIDE 1,000 ML IV SCH ×2 (17:56→23:36)
[2022-06-08] MEDS ORDERED: PANTOPRAZOLE SODIUM 40 MG VIAL ONE (21:04)
[2022-06-08] MEDS ORDERED: PANTOPRAZOLE SODIUM 40 MG in SODIUM CHLORIDE 100 ML IVPUSH SCH (22:00)
[2022-06-08] MEDS ORDERED: INSULIN SLIDING SCALE (NOVOLOG) 1 VIAL SQ SCH (22:00)
[2022-06-08] MEDS: INSULIN SLIDING SCALE (NOVOLOG) 1 VIAL SQ SCH (22:01)
[2022-06-08] MEDS: PANTOPRAZOLE SODIUM 40 MG VIAL IVPUSH SCH (22:02)
[2022-06-08] MEDS: MELATONIN 5 MG TABLETS PO PRN (23:36)
[2022-06-09 00:56] VITALS: RESP 18; BMI 31.9
[2022-06-09] MEDS: METOCLOPRAMIDE HCL INJECTION 10 MG/2 ML VIAL IVPUSH SCH ×3 (01:35→17:33)
[2022-06-09] MEDS: ONDANSETRON 4 MG/2 ML VIAL IVPUSH SCH ×5 (02:47→18:26)
[2022-06-09] MEDS: HEPARIN NA (PORCINE) 5,000 UNITS/ML 1ML VIAL SQ SCH ×3 (06:07→21:44)
[2022-06-09] MEDS: LEVOTHYROXINE NA 150 MCG TABLET PO SCH (06:09)
[2022-06-09] MEDS: INSULIN (LEVEMIR) 100 UNITS/ML UNITS SQ SCH (06:14)
[2022-06-09] MEDS: INSULIN SLIDING SCALE (NOVOLOG) 1 VIAL SQ SCH ×4 (06:15→21:55)
[2022-06-09] MEDS: INSULIN (NOVOLOG) ASPART 100 UNITS/ML 10ML VIAL SQ SCH ×3 (06:15→16:26)
[2022-06-09] MEDS: PANTOPRAZOLE SODIUM 40 MG VIAL IVPUSH SCH ×2 (09:30→21:45)
[2022-06-09] MEDS: LISINOPRIL 10 MG TABLET PO SCH (09:30)
[2022-06-09] MEDS: SODIUM BICARBONATE 325 MG TABLET PO SCH (11:20)
[2022-06-09 12:41] LABS: CALCIUM 8.9 mg/dL (8.5-10.1)
[2022-06-09 12:42] LABS: BLOOD UREA NITROGEN 14.6 mg/dL (7-18)
[2022-06-09 12:46] LABS: CREATININE 1.1 mg/dL (0.55-1.3)
[2022-06-09 12:47] LABS: BILIRUBIN,TOTAL 0.4 mg/dL (0.2-1)
[2022-06-09 12:52] LABS: TOT PROT 6.4 g/dl (6.4-8.2)
[2022-06-09] MEDS: SODIUM CHLORIDE 1,000 ML IV SCH (21:46)
[2022-06-09] MEDS: ONDANSETRON 4 MG/2 ML VIAL IVPUSH PRN (21:47)
[2022-06-09] MEDS: MELATONIN 5 MG TABLETS PO PRN (21:55)
[2022-06-10] MEDS: METOCLOPRAMIDE HCL INJECTION 10 MG/2 ML VIAL IVPUSH SCH ×3 (01:33→17:29)
[2022-06-10] MEDS: SODIUM CHLORIDE 1,000 ML IV SCH ×2 (01:41→20:33)
[2022-06-10] MEDS: HEPARIN NA (PORCINE) 5,000 UNITS/ML 1ML VIAL SQ SCH ×3 (06:34→21:14)
[2022-06-10] MEDS: INSULIN SLIDING SCALE (NOVOLOG) 1 VIAL SQ SCH ×4 (06:35→21:18)
[2022-06-10] MEDS: INSULIN (NOVOLOG) ASPART 100 UNITS/ML 10ML VIAL SQ SCH ×3 (06:35→16:40)
[2022-06-10] MEDS: LEVOTHYROXINE NA 150 MCG TABLET PO SCH (06:36)
[2022-06-10] MEDS: INSULIN (LEVEMIR) 100 UNITS/ML UNITS SQ SCH (06:36)
[2022-06-10] MEDS: LISINOPRIL 10 MG TABLET PO SCH (09:24)
[2022-06-10] MEDS: SODIUM BICARBONATE 325 MG TABLET PO SCH (09:25)
[2022-06-10] MEDS: PANTOPRAZOLE SODIUM 40 MG VIAL IVPUSH SCH ×2 (09:25→21:14)
[2022-06-10] MEDS: RIFAXIMIN 550 MG TABLET PO SCH ×2 (13:29→21:14)
[2022-06-10] MEDS: ONDANSETRON 4 MG/2 ML VIAL IVPUSH PRN ×2 (13:29→21:29)
[2022-06-10 14:31] LABS: HEMATOCRIT 33.9 % (32.4-45.2); HEMOGLOBIN 11.7 GM/dL (10.7-15.3); MCH 27.3 pg (25.7-33.7); MCHC 34.5 g/dl (32.0-36.0); MEAN CELL VOLUME 79.1 fl (80-96); MEAN PLT VOLUME 7.4 fl (7.5-11.1); PLATELET COUNT 358 10^3/uL (134-434); RBC 4.28 M/mm3 (3.60-5.2); RDW 14.9 % (11.6-15.6)
[2022-06-10] MEDS: LIPASE/PROTEASE/AMYLASE 36,000 UNIT CAPSULE PO SCH ×2 (14:39→17:29)
[2022-06-10 15:00] LABS: CALCIUM 8.8 mg/dL (8.5-10.1); MAGNESIUM 1.6 mg/dL (1.8-2.4)
[2022-06-10 15:01] LABS: BLOOD UREA NITROGEN 6.7 mg/dL (7-18)
[2022-06-10 15:04] LABS: CREATININE 1.1 mg/dL (0.55-1.3)
[2022-06-10 15:05] LABS: BILIRUBIN,TOTAL 0.6 mg/dL (0.2-1); TOT PROT 6.6 g/dl (6.4-8.2)
[2022-06-10] MEDS ORDERED: MAGNESIUM SULF 50% (8.12 MEQ/2 ML-1 GM VIAL) IVPB ONE ×2 (15:06→15:30)
[2022-06-11] MEDS: METOCLOPRAMIDE HCL INJECTION 10 MG/2 ML VIAL IVPUSH SCH ×3 (01:15→18:58)
[2022-06-11] MEDS: SODIUM CHLORIDE 1,000 ML IV SCH ×2 (02:34→21:49)
[2022-06-11] MEDS: INSULIN (LEVEMIR) 100 UNITS/ML UNITS SQ SCH (06:13)
[2022-06-11] MEDS: RIFAXIMIN 550 MG TABLET PO SCH ×3 (06:13→21:49)
[2022-06-11] MEDS: LEVOTHYROXINE NA 150 MCG TABLET PO SCH (06:13)
[2022-06-11] MEDS: HEPARIN NA (PORCINE) 5,000 UNITS/ML 1ML VIAL SQ SCH ×3 (06:14→21:58)
[2022-06-11] MEDS: INSULIN (NOVOLOG) ASPART 100 UNITS/ML 10ML VIAL SQ SCH ×3 (06:19→17:26)
[2022-06-11] MEDS: INSULIN SLIDING SCALE (NOVOLOG) 1 VIAL SQ SCH ×4 (06:19→22:03)
[2022-06-11] MEDS: LIPASE/PROTEASE/AMYLASE 36,000 UNIT CAPSULE PO SCH ×3 (08:29→17:27)
[2022-06-11] MEDS: LISINOPRIL 10 MG TABLET PO SCH (09:59)
[2022-06-11] MEDS: SODIUM BICARBONATE 325 MG TABLET PO SCH (10:00)
[2022-06-11] MEDS: PANTOPRAZOLE SODIUM 40 MG VIAL IVPUSH SCH ×2 (10:00→21:56)
[2022-06-12] MEDS: METOCLOPRAMIDE HCL INJECTION 10 MG/2 ML VIAL IVPUSH SCH ×3 (01:40→18:04)
[2022-06-12] MEDS: RIFAXIMIN 550 MG TABLET PO SCH ×3 (06:44→22:53)
[2022-06-12] MEDS: LEVOTHYROXINE NA 150 MCG TABLET PO SCH (06:44)
[2022-06-12] MEDS: HEPARIN NA (PORCINE) 5,000 UNITS/ML 1ML VIAL SQ SCH ×3 (06:44→22:53)
[2022-06-12] MEDS: INSULIN (LEVEMIR) 100 UNITS/ML UNITS SQ SCH (06:45)
[2022-06-12] MEDS: INSULIN (NOVOLOG) ASPART 100 UNITS/ML 10ML VIAL SQ SCH ×3 (06:46→17:00)
[2022-06-12] MEDS: INSULIN SLIDING SCALE (NOVOLOG) 1 VIAL SQ SCH ×4 (06:47→22:54)
[2022-06-12] MEDS: LIPASE/PROTEASE/AMYLASE 36,000 UNIT CAPSULE PO SCH ×3 (08:57→17:49)
[2022-06-12 09:56] LABS: BASO % 0.9 % (0-2.0); EOS % 2.6 % (0-4.5); HEMATOCRIT 35.3 % (32.4-45.2); HEMOGLOBIN 11.9 GM/dL (10.7-15.3); LYMPH % 17.6 % (8-40); MCH 26.6 pg (25.7-33.7); MCHC 33.6 g/dl (32.0-36.0); MEAN CELL VOLUME 79.1 fl (80-96); MEAN PLT VOLUME 7.8 fl (7.5-11.1); MONO % 5.9 % (3.8-10.2); PLATELET COUNT 363 10^3/uL (134-434); RBC 4.46 M/mm3 (3.60-5.2); RDW 14.7 % (11.6-15.6); WHITE BLOOD COUNT 7.7 K/mm3 (4.0-10.0)
[2022-06-12] MEDS: LISINOPRIL 10 MG TABLET PO SCH (09:56)
[2022-06-12] MEDS: SODIUM BICARBONATE 325 MG TABLET PO SCH (09:56)
[2022-06-12] MEDS: PANTOPRAZOLE SODIUM 40 MG VIAL IVPUSH SCH ×2 (09:56→22:50)
[2022-06-12 10:15] LABS: CALCIUM 8.9 mg/dL (8.5-10.1)
[2022-06-12 10:16] LABS: ALBUMIN 2.9 g/dl (3.4-5.0); BLOOD UREA NITROGEN 5.4 mg/dL (7-18)
[2022-06-12 10:21] LABS: BILIRUBIN,TOTAL 0.3 mg/dL (0.2-1); TOT PROT 6.4 g/dl (6.4-8.2)
[2022-06-12] MEDS: SODIUM CHLORIDE 1,000 ML IV SCH (23:24)
[2022-06-12] MEDS: ONDANSETRON 4 MG/2 ML VIAL IVPUSH PRN (23:26)
[2022-06-13] MEDS ORDERED: ACETAMINOPHEN 1000 MG/100 ML BAG IVPB ONE (00:07)
[2022-06-13] MEDS: METOCLOPRAMIDE HCL INJECTION 10 MG/2 ML VIAL IVPUSH SCH ×2 (02:50→09:38)
[2022-06-13] MEDS: RIFAXIMIN 550 MG TABLET PO SCH (06:36)
[2022-06-13] MEDS: HEPARIN NA (PORCINE) 5,000 UNITS/ML 1ML VIAL SQ SCH (06:36)
[2022-06-13] MEDS: LEVOTHYROXINE NA 150 MCG TABLET PO SCH (06:36)
[2022-06-13] MEDS: INSULIN (LEVEMIR) 100 UNITS/ML UNITS SQ SCH (06:37)
[2022-06-13] MEDS: INSULIN (NOVOLOG) ASPART 100 UNITS/ML 10ML VIAL SQ SCH ×2 (06:38→11:49)
[2022-06-13] MEDS: INSULIN SLIDING SCALE (NOVOLOG) 1 VIAL SQ SCH ×2 (06:39→11:49)
[2022-06-13] MEDS: ONDANSETRON 4 MG/2 ML VIAL IVPUSH PRN (08:21)
[2022-06-13] MEDS: LIPASE/PROTEASE/AMYLASE 36,000 UNIT CAPSULE PO SCH ×2 (08:21→11:49)
[2022-06-13] MEDS: SODIUM BICARBONATE 325 MG TABLET PO SCH (09:40)
[2022-06-13] MEDS: PANTOPRAZOLE SODIUM 40 MG VIAL IVPUSH SCH (09:40)
[2022-06-13] MEDS: LISINOPRIL 10 MG TABLET PO SCH (09:40)
[2022-06-13 14:34] VITALS: BP 100/56; PULSE 105; TEMP 99
== END 2022-06-13 14:37 | disposition home or self-care (01) | DRG 249 ==
LOC: JER 12:11 → JERBED 20:30 → J6S 06-08 23:25
PROVIDERS: ADMIT Hospitalist; ATTEND Family Medicine
DX: R11.15 Cyclical vomiting syndrome unrelated to migraine (principal); E11.43 Type 2 diabetes mellitus with diabetic autonomic (poly)neuropathy; I31.3 Pericardial effusion (noninflammatory); E11.22 Type 2 diabetes mellitus with diabetic chronic kidney disease; E11.65 Type 2 diabetes mellitus with hyperglycemia; D72.829 Elevated white blood cell count, unspecified; E03.9 Hypothyroidism, unspecified; E78.5 Hyperlipidemia, unspecified; G47.00 Insomnia, unspecified; I12.9 Hypertensive chronic kidney disease with stage 1 through stage 4 chronic kidney disease, or unspecified chronic kidney disease; I25.10 Atherosclerotic heart disease of native coronary artery without angina pectoris; K31.84 Gastroparesis; K43.9 Ventral hernia without obstruction or gangrene; M06.9 Rheumatoid arthritis, unspecified; N18.9 Chronic kidney disease, unspecified; N20.0 Calculus of kidney; R10.84 Generalized abdominal pain; R11.2 Nausea with vomiting, unspecified; R19.7 Diarrhea, unspecified; Z20.822 Contact with and (suspected) exposure to COVID-19; Z79.4 Long term (current) use of insulin; Z88.0 Allergy status to penicillin; E86.0 Dehydration; N10 Acute pyelonephritis
CPT/HCPCS: 0241U-QW; 36415; 70450-TC; 71046-TC-FY; 74176-TC; 80048; 80053; 82803; 82962; 83690; 83735; 84100; 84484; 85025; 85027; 85610; 85730; 93005; 93010; 99285-25; J1644

== ENCOUNTER 2022-07-23 18:18 | Inpatient (IN) | payer OTHER ==
[2022-07-23 18:32] VITALS: BMI 33.3
[2022-07-23] MEDS ORDERED: ACETAMINOPHEN 1000 MG/100 ML BAG IVPB ONE (19:28)
[2022-07-23] MEDS ORDERED: ONDANSETRON 4 MG/2 ML VIAL IVPUSH ONE (19:28)
[2022-07-23] MEDS ORDERED: SODIUM CHLORIDE 0.9% 500 ML INFUS.BAG IV ONE (19:42)
[2022-07-23 19:48] LABS: BASO % 0.7 % (0-2.0); HEMOGLOBIN 12.4 GM/dL (10.7-15.3); LYMPH % 20.8 % (8-40); MCH 26.4 pg (25.7-33.7); MCHC 33.4 g/dl (32.0-36.0); MEAN CELL VOLUME 79.2 fl (80-96); MEAN PLT VOLUME 7.2 fl (7.5-11.1); MONO % 8.1 % (3.8-10.2); NEUT % 69.4 % (42.8-82.8); PLATELET COUNT 427 10^3/uL (134-434); RBC 4.67 M/mm3 (3.60-5.2); RDW 15.3 % (11.6-15.6); WHITE BLOOD COUNT 10.2 K/mm3 (4.0-10.0)
[2022-07-23 19:55] LABS: INR 1.12 (0.83-1.09); PROTHROMBIN TIME (PATIENT) 12.9 SEC (9.7-13.0)
[2022-07-23 19:58] LABS: ACTIVATED PTT 28.3 SECONDS (25.2-36.5)
[2022-07-23] MEDS ORDERED: ONDANSETRON 4 MG/2 ML VIAL ONE (20:03)
[2022-07-23] MEDS ORDERED: ACETAMINOPHEN INJECTION 100 ML IVPB ONE (20:03)
[2022-07-23 20:07] LABS: CHLORIDE 93 mmol/L (98-107); SODIUM 128 mmol/L (136-145)
[2022-07-23 20:11] LABS: ALBUMIN 3.7 g/dl (3.4-5.0); ANION GAP 11 MMOL/L (8-16); CALCIUM 9.8 mg/dL (8.5-10.1); CO2 25 mmol/L (21-32); LIPASE 104 U/L (73-393); MAGNESIUM 1.7 mg/dL (1.8-2.4)
[2022-07-23 20:14] LABS: CREATININE 1.6 mg/dL (0.55-1.3); SGOT/AST 23 U/L (15-37); SGPT/ALT 39 U/L (13-61)
[2022-07-23 20:16] LABS: BILIRUBIN,TOTAL 0.5 mg/dL (0.2-1); TOT PROT 7.8 g/dl (6.4-8.2)
[2022-07-23 20:17] LABS: ALK PHOS 122 U/L (45-117); GLUCOSE,RANDOM 488 mg/dL (74-106)
[2022-07-23] MEDS ORDERED: MAGNESIUM SULF 50% (8.12 MEQ/2 ML-1 GM VIAL) IVPB ONE ×2 (20:31→22:45)
[2022-07-23] MEDS ORDERED: INSULIN (NOVOLOG) ASPART 100 UNITS/ML 10ML VIAL SQ ONE (20:32)
[2022-07-23] MEDS ORDERED: ASPIRIN 81 MG CHEWABLE TABLETS PO ONE (20:33)
[2022-07-23] MEDS ORDERED: ASPIRIN 81 MG CHEWABLE TABLETS ONE (20:41)
[2022-07-23] MEDS ORDERED: LACTATED RINGERS SOLUTION 1000 ML INFUS.BAG IV ONE (20:49)
[2022-07-23] MEDS ORDERED: morphine CARPU-JECT 4 MG/1 ML DISP.SYRIN IVPUSH ONE ×2 (21:05→23:34)
[2022-07-23] MEDS ORDERED: morphine SULFATE 4 MG/ML VIAL ONE ×2 (21:29→23:36)
[2022-07-23 23:51] LABS: EPI CELLS 14 /uL (0-25.1); HYALINE CASTS 0 /uL (0-3.1); PH,URINE 5.5 (5.0-8.0); URINE APPEARANCE CLEAR; URINE BACTERIA 1408 /uL (0-1359); URINE BILIRUBIN NEGATIVE (NEGATIVE); URINE COLOR YELLOW; URINE GLUCOSE (UA) 3+ (NEGATIVE); URINE KETONE TRACE (NEGATIVE); URINE LEUK ESTERASE NEGATIVE (NEGATIVE); URINE NITRITE NEGATIVE (NEGATIVE); URINE PROTEIN 2+ (NEGATIVE); URINE RBC 7 /uL (0-23.9); URINE UROBILINOGEN 0.2 mg/dL (0.2-1.0); URINE WBC 26 /uL (0-25.8)
[2022-07-24 03:02] VITALS: RESP 20
[2022-07-24] MEDS ORDERED: CEFTRIAXONE 1 GM/50 ML BAG ONE (03:04)
[2022-07-24] MEDS ORDERED: ACETAMINOPHEN INJECTION 100 ML IVPB ONE ×2 (03:04→09:10)
[2022-07-24] MEDS: ACETAMINOPHEN 1000 MG/100 ML BAG IVPB PRN ×2 (03:13→09:54)
[2022-07-24] MEDS ORDERED: LEVOTHYROXINE NA 75 MCG TABLET (FP) PO SCH (07:00)
[2022-07-24] MEDS ORDERED: LEVOTHYROXINE NA 75 MCG TABLET (FP) ONE (07:57)
[2022-07-24] MEDS: INSULIN SLIDING SCALE (NOVOLOG) 1 VIAL SQ SCH ×2 (08:13→12:49)
[2022-07-24 08:24] VITALS: TEMP 98.1
[2022-07-24 09:03] LABS: EOS % 1.8 % (0-4.5); HEMATOCRIT 33.5 % (32.4-45.2); HEMOGLOBIN 11.3 GM/dL (10.7-15.3); LYMPH % 34.3 % (8-40); MCH 26.7 pg (25.7-33.7); MCHC 33.8 g/dl (32.0-36.0); MONO % 7.8 % (3.8-10.2); NEUT % 55.1 % (42.8-82.8); PLATELET COUNT 401 10^3/uL (134-434); RBC 4.24 M/mm3 (3.60-5.2); RDW 15.3 % (11.6-15.6); WHITE BLOOD COUNT 8.4 K/mm3 (4.0-10.0)
[2022-07-24 09:15] LABS: CHLORIDE 98 mmol/L (98-107); SODIUM 135 mmol/L (136-145)
[2022-07-24 09:17] LABS: CALCIUM 9.1 mg/dL (8.5-10.1)
[2022-07-24 09:18] LABS: ANION GAP 10 MMOL/L (8-16); CO2 27 mmol/L (21-32); MAGNESIUM 1.7 mg/dL (1.8-2.4)
[2022-07-24 09:19] LABS: ALBUMIN 3.4 g/dl (3.4-5.0); BLOOD UREA NITROGEN 10.8 mg/dL (7-18); GLUCOSE,RANDOM 373 mg/dL (74-106)
[2022-07-24 09:21] LABS: CREATININE 1.3 mg/dL (0.55-1.3); SGOT/AST 23 U/L (15-37); SGPT/ALT 35 U/L (13-61)
[2022-07-24 09:22] LABS: CHOLESTEROL 228 mg/dL (50-200); TRIGLYCERIDES 252 mg/dL (0-150)
[2022-07-24 09:23] LABS: LDL CHOLESTEROL (ONLY SJRH) 130 mg/dL (5-100); TOT PROT 7.3 g/dl (6.4-8.2)
[2022-07-24 09:24] LABS: BILIRUBIN,TOTAL 0.4 mg/dL (0.2-1)
[2022-07-24 09:25] LABS: ALK PHOS 105 U/L (45-117); HDL CHOLESTEROL 48 mg/dL (40-60)
[2022-07-24 12:40] VITALS: BP 144/89; PULSE 98
== END 2022-07-24 13:00 | disposition home or self-care (01) | DRG 198 ==
LOC: JER 18:18 → JERBED 20:51
PROVIDERS: ADMIT Internal Medicine; ATTEND Family Medicine
DX: R07.89 Other chest pain (principal); I25.10 Atherosclerotic heart disease of native coronary artery without angina pectoris; E78.5 Hyperlipidemia, unspecified; E03.9 Hypothyroidism, unspecified; M06.9 Rheumatoid arthritis, unspecified; E11.43 Type 2 diabetes mellitus with diabetic autonomic (poly)neuropathy; K31.84 Gastroparesis; I25.2 Old myocardial infarction; N28.1 Cyst of kidney, acquired; E83.42 Hypomagnesemia; E11.65 Type 2 diabetes mellitus with hyperglycemia; I12.9 Hypertensive chronic kidney disease with stage 1 through stage 4 chronic kidney disease, or unspecified chronic kidney disease; E11.22 Type 2 diabetes mellitus with diabetic chronic kidney disease; N18.9 Chronic kidney disease, unspecified; Z95.5 Presence of coronary angioplasty implant and graft
CPT/HCPCS: 36415; 71045-TC-FY; 74176-TC; 80053; 80061; 81003; 82962; 83036; 83690; 83735; 84484; 85025; 85610; 85730; 87086; 93005; 93010; 99285-25; C9803-CS; U0003; U0005

== ENCOUNTER 2022-09-15 11:57 | Observation (INO) | payer OTHER ==
[2022-09-15] MEDS ORDERED: ONDANSETRON 4 MG/2 ML VIAL IVPUSH ONE (15:07)
[2022-09-15] MEDS ORDERED: ACETAMINOPHEN 1000 MG/100 ML BAG IVPB ONE (15:07)
[2022-09-15] MEDS ORDERED: SODIUM CHLORIDE 0.9% 500 ML INFUS.BAG IV ONE ×2 (15:07→18:21)
[2022-09-15] MEDS ORDERED: METOCLOPRAMIDE HCL INJECTION 10 MG/2 ML VIAL IVPB ONE (15:09)
[2022-09-15] MEDS ORDERED: ACETAMINOPHEN INJECTION 100 ML IVPB ONE (16:01)
[2022-09-15] MEDS ORDERED: METOCLOPRAMIDE HCL INJECTION 10 MG/2 ML VIAL ONE (16:01)
[2022-09-15] MEDS ORDERED: ONDANSETRON 4 MG/2 ML VIAL ONE (16:05)
[2022-09-15 16:13] LABS: EOS % 0.2 % (0-4.5); HEMATOCRIT 37.9 % (32.4-45.2); HEMOGLOBIN 12.6 GM/dL (10.7-15.3); LYMPH % 20.4 % (8-40); MCH 25.9 pg (25.7-33.7); MCHC 33.2 g/dl (32.0-36.0); MEAN CELL VOLUME 78.2 fl (80-96); MEAN PLT VOLUME 7.1 fl (7.5-11.1); MONO % 8.7 % (3.8-10.2); NEUT % 69.7 % (42.8-82.8); PLATELET COUNT 455 10^3/uL (134-434); RBC 4.85 M/mm3 (3.60-5.2); RDW 15.5 % (11.6-15.6); WHITE BLOOD COUNT 15.4 K/mm3 (4.0-10.0)
[2022-09-15 16:27] LABS: INR 1.16 (0.83-1.09); PROTHROMBIN TIME (PATIENT) 13.4 SEC (9.7-13.0)
[2022-09-15 16:30] LABS: ACTIVATED PTT 31.6 SECONDS (25.2-36.5)
[2022-09-15 16:35] LABS: ALBUMIN 3.8 g/dl (3.4-5.0); BLOOD UREA NITROGEN 35.1 mg/dL (7-18); MAGNESIUM 2.2 mg/dL (1.8-2.4)
[2022-09-15 16:38] LABS: CREATININE 1.6 mg/dL (0.55-1.3)
[2022-09-15 16:40] LABS: BILIRUBIN,TOTAL 0.5 mg/dL (0.2-1); TOT PROT 8.4 g/dl (6.4-8.2)
[2022-09-15] MEDS ORDERED: DOCUSATE SODIUM 100 MG CAPSULE (FP) PO PRN (21:30)
[2022-09-15] MEDS ORDERED: ACETAMINOPHEN 1000 MG/100 ML BAG IVPB PRN (21:36)
[2022-09-15] MEDS: SODIUM CHLORIDE 1,000 ML IV SCH (22:59)
[2022-09-15] MEDS: METOCLOPRAMIDE HCL INJECTION 10 MG/2 ML VIAL IVPUSH SCH (22:59)
[2022-09-16] MEDS ORDERED: SIMETHICONE 40 MG/0.6 ML BOTTLE PO ONE (00:26)
[2022-09-16] MEDS ORDERED: LIDOCAINE VISCOUS 2% ORAL/TOP 15 ML UNIT-DOSE CUP MM ONE (01:11)
[2022-09-16] MEDS ORDERED: MAG HYDROX/AL HYDROX/SIMETH 30 ML UNIT-DOSE CUP PO PRN (01:12)
[2022-09-16] MEDS ORDERED: NITROGLYCERIN SUBLINGUAL 1/150 0.4 MG TAB ONE (01:22)
[2022-09-16] MEDS: NITROGLYCERIN SUBLINGUAL 1/150 0.4 MG TAB SL PRN ×2 (01:25→01:38)
[2022-09-16 01:58] LABS: PHOSPHOROUS 3.4 mg/dL (2.5-4.9)
[2022-09-16 04:45] LABS: BASO % 0.4 % (0-2.0); EOS % 0.1 % (0-4.5); HEMATOCRIT 36.9 % (32.4-45.2); HEMOGLOBIN 12.3 GM/dL (10.7-15.3); LYMPH % 17.9 % (8-40); MCH 26.5 pg (25.7-33.7); MCHC 33.4 g/dl (32.0-36.0); MEAN CELL VOLUME 79.3 fl (80-96); MEAN PLT VOLUME 7.3 fl (7.5-11.1); MONO % 6.3 % (3.8-10.2); NEUT % 75.3 % (42.8-82.8); PLATELET COUNT 429 10^3/uL (134-434); RBC 4.65 M/mm3 (3.60-5.2); RDW 16.3 % (11.6-15.6); WHITE BLOOD COUNT 14.2 K/mm3 (4.0-10.0)
[2022-09-16 05:08] LABS: BLOOD UREA NITROGEN 34.9 mg/dL (7-18); CALCIUM 9.2 mg/dL (8.5-10.1)
[2022-09-16 05:09] LABS: CREATININE 1.5 mg/dL (0.55-1.3)
[2022-09-16] MEDS: METOCLOPRAMIDE HCL INJECTION 10 MG/2 ML VIAL IVPUSH SCH ×3 (06:30→21:38)
[2022-09-16] MEDS: PANTOPRAZOLE SODIUM 40 MG VIAL IVPUSH SCH ×2 (09:28→21:38)
[2022-09-16] MEDS: ENOXAPARIN NA (PORCINE) 40 MG/0.4 ML DISP.SYRIN SQ SCH (09:28)
[2022-09-16] MEDS ORDERED: METOPROLOL TARTRATE 25 MG TABLET (FP) PO SCH (10:00)
[2022-09-16] MEDS: ASPIRIN COATED 81 MG TABLET.EC PO SCH (12:33)
[2022-09-16 15:18] VITALS: BMI 33.7
[2022-09-16] MEDS: SODIUM CHLORIDE 1,000 ML IV SCH ×2 (15:31→21:38)
[2022-09-16] MEDS: ATORVASTATIN CA 40 MG TABLET (FP) PO SCH (21:37)
[2022-09-16] MEDS: METOPROLOL TARTRATE 25 MG TABLET (FP) PO SCH (21:37)
[2022-09-16] MEDS ORDERED: INSULIN (NOVOLOG) ASPART 100 UNITS/ML 10ML VIAL SQ ONE (22:07)
[2022-09-17] MEDS: INSULIN SLIDING SCALE (NOVOLOG) 1 VIAL SQ SCH ×4 (06:24→21:34)
[2022-09-17] MEDS: METOCLOPRAMIDE HCL INJECTION 10 MG/2 ML VIAL IVPUSH SCH ×3 (06:24→21:19)
[2022-09-17] MEDS: METOPROLOL TARTRATE 25 MG TABLET (FP) PO SCH ×2 (09:24→21:19)
[2022-09-17] MEDS: ASPIRIN COATED 81 MG TABLET.EC PO SCH (09:24)
[2022-09-17] MEDS: PANTOPRAZOLE SODIUM 40 MG VIAL IVPUSH SCH ×2 (09:24→21:19)
[2022-09-17] MEDS: ENOXAPARIN NA (PORCINE) 40 MG/0.4 ML DISP.SYRIN SQ SCH (09:25)
[2022-09-17] MEDS: SODIUM CHLORIDE 1,000 ML IV SCH ×2 (10:32→21:19)
[2022-09-17] MEDS: ATORVASTATIN CA 40 MG TABLET (FP) PO SCH (21:19)
[2022-09-18] MEDS: INSULIN SLIDING SCALE (NOVOLOG) 1 VIAL SQ SCH ×4 (06:40→22:43)
[2022-09-18] MEDS: METOCLOPRAMIDE HCL INJECTION 10 MG/2 ML VIAL IVPUSH SCH (06:40)
[2022-09-18] MEDS: ENOXAPARIN NA (PORCINE) 40 MG/0.4 ML DISP.SYRIN SQ SCH (11:04)
[2022-09-18] MEDS: METOPROLOL TARTRATE 25 MG TABLET (FP) PO SCH ×2 (11:04→22:34)
[2022-09-18] MEDS: ASPIRIN COATED 81 MG TABLET.EC PO SCH (11:04)
[2022-09-18] MEDS: INSULIN (LEVEMIR) 100 UNITS/ML UNITS SQ SCH (11:04)
[2022-09-18] MEDS: PANTOPRAZOLE SODIUM 40 MG VIAL IVPUSH SCH ×2 (11:06→22:34)
[2022-09-18 15:47] LABS: COCAINE, UR NEGATIVE (NEGATIVE)
[2022-09-18 15:48] LABS: METHADONE, UR NEGATIVE (NEGATIVE); OPIATES, URI NEGATIVE (NEGATIVE); PHENCYCLIDINE,URINE NEGATIVE (NEGATIVE); URINE BARBITURATES NEGATIVE (NEGATIVE); URINE BENZODIAZEPINES NEGATIVE (NEGATIVE)
[2022-09-18 15:49] LABS: URINE AMPHETAMINES NEGATIVE (NEGATIVE)
[2022-09-18] MEDS: SODIUM CHLORIDE 1,000 ML IV SCH (22:33)
[2022-09-18] MEDS: ATORVASTATIN CA 40 MG TABLET (FP) PO SCH (22:34)
[2022-09-19] MEDS: INSULIN SLIDING SCALE (NOVOLOG) 1 VIAL SQ SCH ×4 (06:16→22:07)
[2022-09-19] MEDS: INSULIN (LEVEMIR) 100 UNITS/ML UNITS SQ SCH (07:00)
[2022-09-19 07:48] LABS: BASO % 0.7 % (0-2.0); HEMATOCRIT 31.2 % (32.4-45.2); HEMOGLOBIN 10.5 GM/dL (10.7-15.3); LYMPH % 30.6 % (8-40); MCH 27.1 pg (25.7-33.7); MCHC 33.8 g/dl (32.0-36.0); MEAN PLT VOLUME 7.3 fl (7.5-11.1); MONO % 7.2 % (3.8-10.2); NEUT % 57.5 % (42.8-82.8); PLATELET COUNT 314 10^3/uL (134-434); RDW 15.8 % (11.6-15.6); WHITE BLOOD COUNT 9.5 K/mm3 (4.0-10.0)
[2022-09-19] MEDS: METOPROLOL TARTRATE 25 MG TABLET (FP) PO SCH ×3 (08:07→21:14)
[2022-09-19 08:15] LABS: BILIRUBIN,TOTAL 0.4 mg/dL (0.2-1)
[2022-09-19 08:18] LABS: ALBUMIN 2.8 g/dl (3.4-5.0); BILIRUBIN,DIRECT 0.3 mg/dL (0.0-0.2); TOT PROT 6.2 g/dl (6.4-8.2)
[2022-09-19 08:20] LABS: ALBUMIN 2.8 g/dl (3.4-5.0); BLOOD UREA NITROGEN 17.7 mg/dL (7-18); CALCIUM 8.8 mg/dL (8.5-10.1)
[2022-09-19 08:23] LABS: CREATININE 1.3 mg/dL (0.55-1.3)
[2022-09-19 08:26] LABS: BILIRUBIN,TOTAL 0.5 mg/dL (0.2-1); TOT PROT 6.3 g/dl (6.4-8.2)
[2022-09-19] MEDS ORDERED: REGADENOSON 0.4 MG/5 ML PRE-FILLED SYRINGE IVPUSH ONE ×2 (09:18→09:45)
[2022-09-19] MEDS: ENOXAPARIN NA (PORCINE) 40 MG/0.4 ML DISP.SYRIN SQ SCH ×2 (10:00→14:56)
[2022-09-19] MEDS: PANTOPRAZOLE SODIUM 40 MG VIAL IVPUSH SCH ×2 (14:49→21:14)
[2022-09-19] MEDS: ASPIRIN COATED 81 MG TABLET.EC PO SCH (14:49)
[2022-09-19] MEDS ORDERED: ONDANSETRON 4 MG TABLET PO PRN (15:55)
[2022-09-19] MEDS ORDERED: ACETAMINOPHEN 325 MG TABLET (FP) PO ONE (20:37)
[2022-09-19] MEDS: ATORVASTATIN CA 40 MG TABLET (FP) PO SCH (21:14)
[2022-09-20] MEDS: INSULIN (LEVEMIR) 100 UNITS/ML UNITS SQ SCH (06:08)
[2022-09-20] MEDS: INSULIN SLIDING SCALE (NOVOLOG) 1 VIAL SQ SCH ×4 (06:25→21:34)
[2022-09-20] MEDS: ASPIRIN COATED 81 MG TABLET.EC PO SCH (10:01)
[2022-09-20] MEDS: PANTOPRAZOLE SODIUM 40 MG VIAL IVPUSH SCH ×2 (10:01→21:33)
[2022-09-20] MEDS: METOPROLOL TARTRATE 25 MG TABLET (FP) PO SCH ×2 (10:01→21:33)
[2022-09-20] MEDS: ENOXAPARIN NA (PORCINE) 40 MG/0.4 ML DISP.SYRIN SQ SCH (10:04)
[2022-09-20 11:29] LABS: BASO % 0.7 % (0-2.0); EOS % 3.4 % (0-4.5); HEMATOCRIT 32.8 % (32.4-45.2); HEMOGLOBIN 10.7 GM/dL (10.7-15.3); LYMPH % 24.6 % (8-40); MCH 25.9 pg (25.7-33.7); MCHC 32.8 g/dl (32.0-36.0); MEAN CELL VOLUME 78.8 fl (80-96); MEAN PLT VOLUME 7.4 fl (7.5-11.1); MONO % 6.8 % (3.8-10.2); NEUT % 64.5 % (42.8-82.8); PLATELET COUNT 339 10^3/uL (134-434); RBC 4.15 M/mm3 (3.60-5.2); WHITE BLOOD COUNT 8.6 K/mm3 (4.0-10.0)
[2022-09-20] MEDS: SODIUM CHLORIDE 1,000 ML IV SCH ×2 (12:50→21:32)
[2022-09-20] MEDS: ATORVASTATIN CA 40 MG TABLET (FP) PO SCH (21:33)
[2022-09-21] MEDS: INSULIN (LEVEMIR) 100 UNITS/ML UNITS SQ SCH (06:43)
[2022-09-21] MEDS: INSULIN SLIDING SCALE (NOVOLOG) 1 VIAL SQ SCH (06:43)
[2022-09-21 09:19] LABS: HEMATOCRIT 33.8 % (32.4-45.2); MCH 25.7 pg (25.7-33.7); MCHC 32.7 g/dl (32.0-36.0); MEAN CELL VOLUME 78.8 fl (80-96); MEAN PLT VOLUME 7.8 fl (7.5-11.1); PLATELET COUNT 309 10^3/uL (134-434); RBC 4.28 M/mm3 (3.60-5.2); RDW 16.3 % (11.6-15.6); WHITE BLOOD COUNT 9.7 K/mm3 (4.0-10.0)
[2022-09-21] MEDS ORDERED: predniSONE 20 MG TABLET (UD) PO ONE (09:45)
[2022-09-21] MEDS: METOPROLOL TARTRATE 25 MG TABLET (FP) PO SCH (09:51)
[2022-09-21] MEDS: ENOXAPARIN NA (PORCINE) 40 MG/0.4 ML DISP.SYRIN SQ SCH (09:51)
[2022-09-21] MEDS: ASPIRIN COATED 81 MG TABLET.EC PO SCH (09:51)
[2022-09-21] MEDS: PANTOPRAZOLE SODIUM 40 MG VIAL IVPUSH SCH (09:52)
[2022-09-21 10:52] LABS: ALBUMIN 2.9 g/dl (3.4-5.0); CALCIUM 9.2 mg/dL (8.5-10.1)
[2022-09-21 10:53] LABS: BLOOD UREA NITROGEN 17.4 mg/dL (7-18)
[2022-09-21 10:56] LABS: CREATININE 1.3 mg/dL (0.55-1.3)
[2022-09-21 10:57] LABS: TOT PROT 6.3 g/dl (6.4-8.2)
[2022-09-21 10:58] LABS: BILIRUBIN,TOTAL 0.3 mg/dL (0.2-1)
[2022-09-21 11:13] VITALS: BP 131/79; PULSE 77; RESP 16; TEMP 98.8
== END 2022-09-21 11:10 | disposition short-term general hospital (02) ==
LOC: JER 11:57 → JERBED 15:20 → J4W 20:23
PROVIDERS: ADMIT Internal Medicine; ATTEND Family Medicine
PROC: 3E013VG Introduction of Insulin into Subcutaneous Tissue, Percutaneous Approach (ICD-10-PCS; principal; 2022-09-15)
PROC: 3E033NZ Introduction of Analgesics, Hypnotics, Sedatives into Peripheral Vein, Percutaneous Approach (ICD-10-PCS; 2022-09-15)
PROC: 3E033GC Introduction of Other Therapeutic Substance into Peripheral Vein, Percutaneous Approach (ICD-10-PCS; 2022-09-15)
PROC: 3E0337Z Introduction of Electrolytic and Water Balance Substance into Peripheral Vein, Percutaneous Approach (ICD-10-PCS; 2022-09-15)
DX: I25.10 Atherosclerotic heart disease of native coronary artery without angina pectoris (principal); R07.9 Chest pain, unspecified; E86.0 Dehydration; I11.9 Hypertensive heart disease without heart failure; D64.9 Anemia, unspecified; K76.0 Fatty (change of) liver, not elsewhere classified; R11.2 Nausea with vomiting, unspecified; Z95.5 Presence of coronary angioplasty implant and graft; E78.5 Hyperlipidemia, unspecified; Z79.4 Long term (current) use of insulin; Z96.41 Presence of insulin pump (external) (internal); E03.9 Hypothyroidism, unspecified; M06.9 Rheumatoid arthritis, unspecified; R42 Dizziness and giddiness; Z88.0 Allergy status to penicillin; Z91.018 Allergy to other foods; N28.9 Disorder of kidney and ureter, unspecified; G89.29 Other chronic pain; R10.9 Unspecified abdominal pain; N39.0 Urinary tract infection, site not specified; N28.1 Cyst of kidney, acquired; I25.2 Old myocardial infarction; E11.43 Type 2 diabetes mellitus with diabetic autonomic (poly)neuropathy; K31.84 Gastroparesis
CPT/HCPCS: 0241U-QW; 36415; 71045-TC-FY; 76700-TC; 78452-TC; 80048; 80053; 80076; 80307; 82550; 82553; 82728; 82962; 83540; 83550; 83690; 83735; 84100; 84439; 84443; 84484; 85025; 85027; 85379; 85610; 85730; 87040; 93005; 93010; 93017; 93306-TC; 99285-25; A9502; G0378; J2785

== ENCOUNTER 2023-02-12 10:47 | Observation (INO) | payer OTHER ==
[2023-02-12 10:52] VITALS: BMI 38.2
[2023-02-12] MEDS ORDERED: MAG HYDROX/AL HYDROX/SIMETH -MYLANTA- ORAL SUSPENSION PO ONE (11:13)
[2023-02-12] MEDS ORDERED: SODIUM CHLORIDE 0.9% 500 ML INFUS.BAG IV ONE ×2 (11:13→13:05)
[2023-02-12] MEDS ORDERED: ONDANSETRON 4 MG/2 ML VIAL IVPB ONE (11:13)
[2023-02-12] MEDS ORDERED: FAMOTIDINE 20 MG/50 ML IVPB 20 MG in PREMIX 50 IVPB ONE (11:13)
[2023-02-12] MEDS ORDERED: FAMOTIDINE 10 MG/ML VIAL IVPB ONE (11:22)
[2023-02-12] MEDS ORDERED: ONDANSETRON 4 MG/2 ML VIAL ONE ×2 (11:22→17:45)
[2023-02-12 11:50] LABS: BASO % 0.9 % (0-2.0); EOS % 0.2 % (0-4.5); HEMATOCRIT 34.4 % (32.4-45.2); HEMOGLOBIN 11.3 GM/dL (10.7-15.3); LYMPH % 18.2 % (8-40); MCH 25.1 pg (25.7-33.7); MCHC 32.7 g/dl (32.0-36.0); MEAN CELL VOLUME 76.8 fl (80-96); MEAN PLT VOLUME 7.6 fl (7.5-11.1); MONO % 6.9 % (3.8-10.2); NEUT % 73.8 % (42.8-82.8); PLATELET COUNT 344 10^3/uL (134-434); RBC 4.49 M/mm3 (3.60-5.2); WHITE BLOOD COUNT 11.5 K/mm3 (4.0-10.0)
[2023-02-12 11:55] LABS: URINE APPEARANCE CLEAR; URINE BILIRUBIN NEGATIVE (NEGATIVE); URINE COLOR YELLOW; URINE GLUCOSE (UA) NEGATIVE (NEGATIVE); URINE KETONE TRACE (NEGATIVE); URINE LEUK ESTERASE 1+ (NEGATIVE); URINE NITRITE NEGATIVE (NEGATIVE); URINE PROTEIN 3+ (NEGATIVE); URINE UROBILINOGEN 0.2 mg/dL (0.2-1.0)
[2023-02-12 11:57] LABS: EPI CELLS 63.3 /uL (0-25.1); URINE BACTERIA 1681.7 /uL (0-1359); URINE RBC 17.8 /uL (0-23.9); URINE WBC 52.7 /uL (0-25.8)
[2023-02-12 12:17] LABS: ALBUMIN 3.5 g/dl (3.4-5.0); BLOOD UREA NITROGEN 29.8 mg/dL (7-18); CALCIUM 9.5 mg/dL (8.5-10.1)
[2023-02-12 12:20] LABS: CREATININE 1.9 mg/dL (0.55-1.3)
[2023-02-12 12:22] LABS: BILIRUBIN,TOTAL 0.3 mg/dL (0.2-1); TOT PROT 7.3 g/dl (6.4-8.2)
[2023-02-12] MEDS ORDERED: CEFTRIAXONE 1,000 MG in DEXTROSE 5%-WATER - 50 ML IVPB ONE (13:04)
[2023-02-12] MEDS ORDERED: cefTRIAXone SODIUM 1 GM VIAL ONE (13:15)
[2023-02-12] MEDS ORDERED: ACETAMINOPHEN 325 MG TABLET (FP) ONE (13:15)
[2023-02-12] MEDS ORDERED: ACETAMINOPHEN 500 MG TABLET (FP) PO ONE (13:16)
[2023-02-12] MEDS ORDERED: LIDOCAINE 5% TOPICAL PATCH TP ONE (15:31)
[2023-02-12] MEDS ORDERED: LIDOCAINE 5% TOPICAL PATCH ONE (15:39)
[2023-02-12 15:43] LABS: CALCIUM 8.9 mg/dL (8.5-10.1)
[2023-02-12 15:44] LABS: BLOOD UREA NITROGEN 30.6 mg/dL (7-18)
[2023-02-12 15:47] LABS: CREATININE 1.6 mg/dL (0.55-1.3)
[2023-02-12] MEDS ORDERED: ONDANSETRON 4 MG/2 ML VIAL IVPUSH ONE (17:41)
[2023-02-12] MEDS ORDERED: ONDANSETRON 4 MG/2 ML VIAL IVPUSH PRN (21:30)
[2023-02-12] MEDS ORDERED: ACETAMINOPHEN 325 MG TABLET (FP) PO PRN (21:30)
[2023-02-12] MEDS ORDERED: TRIMETHOBENZAMIDE HCL 200MG/2ML INJ IM PRN (23:36)
[2023-02-12] MEDS ORDERED: MAG HYDROX/AL HYDROX/SIMETH 30 ML UNIT-DOSE CUP PO PRN (23:38)
[2023-02-12] MEDS: SODIUM CHLORIDE 1,000 ML IV SCH (23:42)
[2023-02-12] MEDS: LIDOCAINE PATCH REMOVAL MC SCH (23:42)
[2023-02-12] MEDS: ACETAMINOPHEN 1000 MG/100 ML BAG IVPB PRN (23:43)
[2023-02-13] MEDS: ACETAMINOPHEN 1000 MG/100 ML BAG IVPB PRN ×3 (05:38→18:37)
[2023-02-13] MEDS: INSULIN SLIDING SCALE (NOVOLOG) 1 VIAL SQ SCH ×4 (06:16→22:49)
[2023-02-13] MEDS: LEVOTHYROXINE NA 75 MCG TABLET (FP) PO SCH (06:49)
[2023-02-13] MEDS ORDERED: LEVOTHYROXINE NA 150 MCG TABLET PO SCH (07:00)
[2023-02-13] MEDS: CEFTRIAXONE 1 GM in DEXTROSE 5%-WATER - 50 ML IVPB SCH (10:03)
[2023-02-13] MEDS: FUROSEMIDE 20 MG TABLET (FP) PO SCH (10:04)
[2023-02-13] MEDS: CLOPIDOGREL BISULFATE 75 MG TABLET (FP) PO SCH (10:04)
[2023-02-13] MEDS: ASPIRIN COATED 81 MG TABLET.EC PO SCH (10:04)
[2023-02-13] MEDS: SERTRALINE HCL 50 MG TABLET (FP) PO SCH (10:04)
[2023-02-13] MEDS: metoPROLOL SUCCINATE 25 MG TAB.SR.24H (FP) PO SCH (10:04)
[2023-02-13] MEDS: PANTOPRAZOLE SODIUM 40 MG VIAL IVPUSH SCH (10:05)
[2023-02-13 10:08] LABS: BASO % 0.9 % (0-2.0); EOS % 1.4 % (0-4.5); HEMOGLOBIN 10.9 GM/dL (10.7-15.3); LYMPH % 26.4 % (8-40); MCH 26.1 pg (25.7-33.7); MCHC 34.1 g/dl (32.0-36.0); MEAN CELL VOLUME 76.8 fl (80-96); MEAN PLT VOLUME 7.9 fl (7.5-11.1); MONO % 9.8 % (3.8-10.2); NEUT % 61.5 % (42.8-82.8); PLATELET COUNT 326 10^3/uL (134-434); RBC 4.16 M/mm3 (3.60-5.2); RDW 18.1 % (11.6-15.6); WHITE BLOOD COUNT 7.8 K/mm3 (4.0-10.0)
[2023-02-13 10:30] LABS: BLOOD UREA NITROGEN 24.6 mg/dL (7-18); CALCIUM 8.8 mg/dL (8.5-10.1)
[2023-02-13 10:33] LABS: CREATININE 1.8 mg/dL (0.55-1.3); PHOSPHOROUS 3.2 mg/dL (2.5-4.9)
[2023-02-13] MEDS ORDERED: INSULIN (NOVOLOG) ASPART 100 UNITS/ML 10ML VIAL ONE ×3 (11:17→21:45)
[2023-02-13] MEDS: FLUTICASONE PROP 0.05% 16 GM NASAL SPRAY NS SCH ×3 (11:28→15:32)
[2023-02-13] MEDS: SODIUM CHLORIDE 1,000 ML IV SCH ×2 (22:45→23:51)
[2023-02-13] MEDS: ATORVASTATIN CA 80 MG TABLET (FP) PO SCH (22:45)
[2023-02-13] MEDS: LIDOCAINE PATCH REMOVAL MC SCH (22:53)
[2023-02-14] MEDS: ACETAMINOPHEN 325 MG TABLET (FP) PO PRN ×3 (01:27→19:15)
[2023-02-14] MEDS ORDERED: INSULIN (NOVOLOG) ASPART 100 UNITS/ML 10ML VIAL ONE ×4 (06:00→21:04)
[2023-02-14] MEDS ORDERED: INSULIN (LEVEMIR) 100 UNITS/ML UNITS SQ ONE (06:00)
[2023-02-14] MEDS: INSULIN (LEVEMIR) 100 UNITS/ML UNITS SQ SCH (06:08)
[2023-02-14] MEDS: LEVOTHYROXINE NA 75 MCG TABLET (FP) PO SCH (06:09)
[2023-02-14] MEDS: INSULIN (NOVOLOG) ASPART 100 UNITS/ML 10ML VIAL SQ SCH ×3 (06:15→17:30)
[2023-02-14] MEDS: INSULIN SLIDING SCALE (NOVOLOG) 1 VIAL SQ SCH ×4 (06:15→21:20)
[2023-02-14 07:35] VITALS: RESP 16
[2023-02-14] MEDS ORDERED: PANTOPRAZOLE 40 MG TABLET PO SCH (10:08)
[2023-02-14] MEDS: SODIUM CHLORIDE 1,000 ML IV SCH ×2 (10:28→21:08)
[2023-02-14] MEDS: CEFTRIAXONE 1 GM in DEXTROSE 5%-WATER - 50 ML IVPB SCH (10:29)
[2023-02-14] MEDS: CLOPIDOGREL BISULFATE 75 MG TABLET (FP) PO SCH (10:29)
[2023-02-14] MEDS: ASPIRIN COATED 81 MG TABLET.EC PO SCH (10:30)
[2023-02-14] MEDS: metoPROLOL SUCCINATE 25 MG TAB.SR.24H (FP) PO SCH (10:30)
[2023-02-14] MEDS: FUROSEMIDE 20 MG TABLET (FP) PO SCH (10:30)
[2023-02-14] MEDS: SERTRALINE HCL 50 MG TABLET (FP) PO SCH (10:30)
[2023-02-14] MEDS: FLUTICASONE PROP 0.05% 16 GM NASAL SPRAY NS SCH (10:31)
[2023-02-14] MEDS: PANTOPRAZOLE SODIUM 40 MG VIAL IVPUSH SCH (11:58)
[2023-02-14] MEDS: ATORVASTATIN CA 80 MG TABLET (FP) PO SCH (21:10)
[2023-02-14] MEDS: LIDOCAINE PATCH REMOVAL MC SCH (21:20)
[2023-02-15] MEDS: LEVOTHYROXINE NA 75 MCG TABLET (FP) PO SCH (06:35)
[2023-02-15] MEDS: INSULIN (NOVOLOG) ASPART 100 UNITS/ML 10ML VIAL SQ SCH ×2 (06:40→14:09)
[2023-02-15] MEDS: INSULIN SLIDING SCALE (NOVOLOG) 1 VIAL SQ SCH ×2 (06:40→14:08)
[2023-02-15] MEDS: INSULIN (LEVEMIR) 100 UNITS/ML UNITS SQ SCH (06:40)
[2023-02-15] MEDS: SODIUM CHLORIDE 1,000 ML IV SCH (06:55)
[2023-02-15] MEDS: CEFTRIAXONE 1 GM in DEXTROSE 5%-WATER - 50 ML IVPB SCH (09:31)
[2023-02-15] MEDS: FUROSEMIDE 20 MG TABLET (FP) PO SCH (09:32)
[2023-02-15] MEDS: CLOPIDOGREL BISULFATE 75 MG TABLET (FP) PO SCH (09:32)
[2023-02-15] MEDS: ACETAMINOPHEN 325 MG TABLET (FP) PO PRN (09:32)
[2023-02-15] MEDS: SERTRALINE HCL 50 MG TABLET (FP) PO SCH (09:33)
[2023-02-15] MEDS: ASPIRIN COATED 81 MG TABLET.EC PO SCH (09:33)
[2023-02-15] MEDS: metoPROLOL SUCCINATE 25 MG TAB.SR.24H (FP) PO SCH (09:33)
[2023-02-15] MEDS: FLUTICASONE PROP 0.05% 16 GM NASAL SPRAY NS SCH (09:33)
[2023-02-15 10:20] LABS: HEMATOCRIT 32.5 % (32.4-45.2); HEMOGLOBIN 10.8 GM/dL (10.7-15.3); MCH 25.7 pg (25.7-33.7); MCHC 33.3 g/dl (32.0-36.0); MEAN CELL VOLUME 77.1 fl (80-96); MEAN PLT VOLUME 7.4 fl (7.5-11.1); PLATELET COUNT 308 10^3/uL (134-434); RBC 4.21 M/mm3 (3.60-5.2); RDW 17.7 % (11.6-15.6); WHITE BLOOD COUNT 8.3 K/mm3 (4.0-10.0)
[2023-02-15 10:50] LABS: BLOOD UREA NITROGEN 16.9 mg/dL (7-18); CALCIUM 9.1 mg/dL (8.5-10.1)
[2023-02-15 10:51] LABS: ALBUMIN 3.3 g/dl (3.4-5.0)
[2023-02-15 10:53] LABS: CREATININE 1.2 mg/dL (0.55-1.3)
[2023-02-15 10:55] LABS: BILIRUBIN,TOTAL 0.3 mg/dL (0.2-1); TOT PROT 6.7 g/dl (6.4-8.2)
[2023-02-15] MEDS ORDERED: INSULIN (NOVOLOG MIX 70/30) 100 UNITS/ML MDV SQ ONE (13:30)
[2023-02-15] MEDS ORDERED: INSULIN (NOVOLOG) ASPART 100 UNITS/ML 10ML VIAL ONE (14:02)
[2023-02-15 14:28] VITALS: BP 159/87; PULSE 85; TEMP 98.8
== END 2023-02-15 15:18 | disposition home or self-care (01) ==
LOC: JER 10:47 → JERBED 17:42 → J8W 23:57
PROVIDERS: ADMIT Internal Medicine; ATTEND Family Medicine
PROC: 3E023GC Introduction of Other Therapeutic Substance into Muscle, Percutaneous Approach (ICD-10-PCS; principal; 2023-02-12)
PROC: 3E033GC Introduction of Other Therapeutic Substance into Peripheral Vein, Percutaneous Approach (ICD-10-PCS; 2023-02-12)
PROC: 3E03329 Introduction of Other Anti-infective into Peripheral Vein, Percutaneous Approach (ICD-10-PCS; 2023-02-12)
PROC: 3E013VG Introduction of Insulin into Subcutaneous Tissue, Percutaneous Approach (ICD-10-PCS; 2023-02-12)
DX: N12 Tubulo-interstitial nephritis, not specified as acute or chronic (principal); R11.2 Nausea with vomiting, unspecified; K52.9 Noninfective gastroenteritis and colitis, unspecified; E86.0 Dehydration; N39.0 Urinary tract infection, site not specified; I10 Essential (primary) hypertension; I25.10 Atherosclerotic heart disease of native coronary artery without angina pectoris; E03.9 Hypothyroidism, unspecified; E11.9 Type 2 diabetes mellitus without complications; I25.2 Old myocardial infarction; E78.5 Hyperlipidemia, unspecified; M06.9 Rheumatoid arthritis, unspecified; E11.22 Type 2 diabetes mellitus with diabetic chronic kidney disease; I12.9 Hypertensive chronic kidney disease with stage 1 through stage 4 chronic kidney disease, or unspecified chronic kidney disease; N18.9 Chronic kidney disease, unspecified; N17.9 Acute kidney failure, unspecified; Z79.4 Long term (current) use of insulin; Z96.41 Presence of insulin pump (external) (internal); Z95.5 Presence of coronary angioplasty implant and graft; Z88.0 Allergy status to penicillin; Z88.8 Allergy status to other drugs, medicaments and biological substances
CPT/HCPCS: 0241U-QW; 36415; 73070-TC-LT-FY; 76775-TC; 76856-TC; 80048; 80053; 81003; 82962; 83690; 83735; 84100; 84443; 84484; 85025; 85027; 87045; 87046; 87086; 87798; 93005; 93010; 93971-TC; 96365; 96372; 96375; 99285-25; G0378

== ENCOUNTER 2023-03-09 16:38 | Observation (INO) | payer OTHER ==
[2023-03-09] MEDS ORDERED: SODIUM CHLORIDE 0.9% 500 ML INFUS.BAG IV ONE (18:06)
[2023-03-09] MEDS ORDERED: ONDANSETRON 4 MG TABLET PO ONE (18:06)
[2023-03-09] MEDS ORDERED: ACETAMINOPHEN 1000 MG/100 ML BAG IVPB ONE (18:07)
[2023-03-09] MEDS ORDERED: FAMOTIDINE 20 MG TABLET PO ONE (18:07)
[2023-03-09] MEDS ORDERED: ALBUTEROL SO4 2.5/IPRATROPIUM 0.5 INH SOL 3 ML VIAL.NEB. NEB ONE ×2 (18:21→19:22)
[2023-03-09] MEDS ORDERED: ONDANSETRON 4 MG/2 ML VIAL IVPUSH ONE (19:21)
[2023-03-09] MEDS ORDERED: FAMOTIDINE 20 MG/50 ML IVPB 20 MG/50 ML MG IVPB ONE (19:21)
[2023-03-09] MEDS ORDERED: ONDANSETRON 4 MG/2 ML VIAL ONE (19:23)
[2023-03-09] MEDS ORDERED: ACETAMINOPHEN INJECTION 100 ML IVPB ONE (19:23)
[2023-03-09] MEDS ORDERED: FAMOTIDINE 10 MG/ML VIAL IVPB ONE (19:23)
[2023-03-09 20:13] LABS: BASO % 1.3 % (0-2.0); EOS % 1.2 % (0-4.5); HEMATOCRIT 31.4 % (32.4-45.2); HEMOGLOBIN 10.7 GM/dL (10.7-15.3); MCH 25.7 pg (25.7-33.7); MCHC 33.9 g/dl (32.0-36.0); MEAN CELL VOLUME 75.6 fl (80-96); MEAN PLT VOLUME 7.7 fl (7.5-11.1); MONO % 9.5 % (3.8-10.2); PLATELET COUNT 323 10^3/uL (134-434); RBC 4.16 M/mm3 (3.60-5.2); RDW 17.9 % (11.6-15.6); WHITE BLOOD COUNT 11.4 K/mm3 (4.0-10.0)
[2023-03-09 20:26] LABS: INR 1.3 (0.83-1.09)
[2023-03-09 20:29] LABS: ACTIVATED PTT 30.9 SECONDS (25.2-36.5)
[2023-03-09 20:33] LABS: POTASSIUM 3.2 mmol/L (3.5-5.1)
[2023-03-09 20:35] LABS: ALBUMIN 3.3 g/dl (3.4-5.0); BLOOD UREA NITROGEN 19.4 mg/dL (7-18); CALCIUM 9.2 mg/dL (8.5-10.1); MAGNESIUM 1.6 mg/dL (1.8-2.4)
[2023-03-09 20:38] LABS: CREATININE 1.6 mg/dL (0.55-1.3)
[2023-03-09 20:40] LABS: BILIRUBIN,TOTAL 0.3 mg/dL (0.2-1); TOT PROT 6.9 g/dl (6.4-8.2)
[2023-03-09 20:44] LABS: N-TERMINAL BNP 1158.4 pg/ml (5-125)
[2023-03-09] MEDS ORDERED: POTASSIUM CHLORIDE ORAL LIQUID 20 MEQ/15 ML PO ONE (21:12)
[2023-03-09] MEDS ORDERED: MAGNESIUM SULF 50% (8.12 MEQ/2 ML-1 GM VIAL) IVPB ONE (21:13)
[2023-03-09] MEDS ORDERED: METOCLOPRAMIDE HCL INJECTION 10 MG/2 ML VIAL IVPUSH ONE (21:15)
[2023-03-09] MEDS ORDERED: METOCLOPRAMIDE HCL INJECTION 10 MG/2 ML VIAL ONE (21:19)
[2023-03-09] MEDS ORDERED: POTASSIUM CHLORIDE ORAL LIQUID 20 MEQ/15 ML ONE (21:20)
[2023-03-09] MEDS ORDERED: MAGNESIUM SULFATE IN WATER 2 GM/50 ML IVPB IVPB ONE (21:20)
[2023-03-09] MEDS ORDERED: ENOXAPARIN NA (PORCINE) 100 MG/1 ML DISP.SYRIN SQ ONE ×2 (21:33→22:28)
[2023-03-10] MEDS ORDERED: ACETAMINOPHEN 1000 MG/100 ML BAG IVPB ONE ×3 (02:55→13:43)
[2023-03-10] MEDS ORDERED: PATIENT'S OWN MEDICATION (NON-FORMULARY) (Insulin Lispro [Admelog] 100 UNIT/ML Vial) INF SCH (03:00)
[2023-03-10 03:15] VITALS: BMI 38.5
[2023-03-10 05:45] VITALS: RESP 18
[2023-03-10] MEDS ORDERED: LEVOTHYROXINE NA 150 MCG TABLET PO SCH (07:00)
[2023-03-10 07:48] LABS: BASO % 0.8 % (0-2.0); EOS % 1.9 % (0-4.5); HEMATOCRIT 32.5 % (32.4-45.2); HEMOGLOBIN 10.6 GM/dL (10.7-15.3); LYMPH % 29.2 % (8-40); MCH 25.3 pg (25.7-33.7); MCHC 32.7 g/dl (32.0-36.0); MEAN CELL VOLUME 77.2 fl (80-96); MEAN PLT VOLUME 7.4 fl (7.5-11.1); MONO % 9.5 % (3.8-10.2); NEUT % 58.6 % (42.8-82.8); PLATELET COUNT 331 10^3/uL (134-434); RBC 4.22 M/mm3 (3.60-5.2); RDW 17.8 % (11.6-15.6); WHITE BLOOD COUNT 9.4 K/mm3 (4.0-10.0)
[2023-03-10 07:50] LABS: POTASSIUM 3.1 mmol/L (3.5-5.1)
[2023-03-10 08:07] LABS: BLOOD UREA NITROGEN 22.1 mg/dL (7-18)
[2023-03-10 08:10] LABS: CALCIUM 9.2 mg/dL (8.5-10.1)
[2023-03-10 08:13] LABS: CREATININE 1.8 mg/dL (0.55-1.3)
[2023-03-10 08:14] LABS: BILIRUBIN,TOTAL 0.3 mg/dL (0.2-1); TOT PROT 6.9 g/dl (6.4-8.2)
[2023-03-10] MEDS ORDERED: ASPIRIN COATED 81 MG TABLET.EC PO SCH (10:00)
[2023-03-10] MEDS ORDERED: PANTOPRAZOLE 40 MG TABLET PO SCH (10:00)
[2023-03-10] MEDS ORDERED: ENOXAPARIN NA (PORCINE) 100 MG/1 ML DISP.SYRIN SQ SCH (11:00)
[2023-03-10] MEDS ORDERED: TIOTROPIUM BROMIDE 2.5 MCG (SPIRIVA) RESPIMAT INHALER IH SCH (12:15)
[2023-03-10] MEDS ORDERED: BUDESONIDE/FORMETEROL FUMARATE 80/4.5 mcg INHALER IH SCH (12:15)
[2023-03-10] MEDS ORDERED: POTASSIUM CHLORIDE TABS 10 MEQ TABLET.ER (FP) PO ONE (14:30)
[2023-03-10 14:33] VITALS: BP 141/69; PULSE 90; TEMP 98.9
[2023-03-10] MEDS ORDERED: ATORVASTATIN CA 80 MG TABLET (FP) PO SCH (22:00)
== END 2023-03-10 19:05 | disposition home or self-care (01) ==
LOC: JER 16:38 → JERBED 21:57 → INTOOBSV 21:57 → UNDOADMOB 21:57 → JERBED 03-10 00:55 → J4S 03-10 00:55 → JERBED 03-10 11:08 → J4S 03-10 11:08
PROVIDERS: ADMIT Internal Medicine; ATTEND Family Medicine
PROC: 3E033NZ Introduction of Analgesics, Hypnotics, Sedatives into Peripheral Vein, Percutaneous Approach (ICD-10-PCS; principal; 2023-03-10)
PROC: 3E0F7GC Introduction of Other Therapeutic Substance into Respiratory Tract, Via Natural or Artificial Opening (ICD-10-PCS; 2023-03-10)
PROC: 3E023GC Introduction of Other Therapeutic Substance into Muscle, Percutaneous Approach (ICD-10-PCS; 2023-03-10)
PROC: 3E0337Z Introduction of Electrolytic and Water Balance Substance into Peripheral Vein, Percutaneous Approach (ICD-10-PCS; 2023-03-10)
PROC: 3E033GC Introduction of Other Therapeutic Substance into Peripheral Vein, Percutaneous Approach (ICD-10-PCS; 2023-03-10)
DX: I25.10 Atherosclerotic heart disease of native coronary artery without angina pectoris (principal); I11.9 Hypertensive heart disease without heart failure; E11.9 Type 2 diabetes mellitus without complications; E11.43 Type 2 diabetes mellitus with diabetic autonomic (poly)neuropathy; K31.84 Gastroparesis; Z95.5 Presence of coronary angioplasty implant and graft; Z87.891 Personal history of nicotine dependence; Z91.041 Radiographic dye allergy status; M06.9 Rheumatoid arthritis, unspecified; G89.29 Other chronic pain; I25.2 Old myocardial infarction; Z88.0 Allergy status to penicillin; N39.0 Urinary tract infection, site not specified; Z88.8 Allergy status to other drugs, medicaments and biological substances; Z90.49 Acquired absence of other specified parts of digestive tract
CPT/HCPCS: 0241U-QW; 36415; 71045-TC-FY; 71046-TC-FY; 78582-TC; 80053; 82962; 83690; 83735; 83880; 84484; 85025; 85379; 85610; 85730; 86850; 86900; 86901; 93005; 93010; 93970-TC; 94640; 96361; 96365; 96372; 96375; 96376; 99285-25; A9539; A9540; G0378

== ENCOUNTER 2023-03-16 04:11 | Day surgery (SDC) | payer OTHER ==
[2023-03-10 16:27] VITALS: BMI 36.8
[2023-03-16 08:03] VITALS: BP 145/63; PULSE 88; RESP 18; TEMP 97.2
[2023-03-16] MEDS ORDERED: ACETAMINOPHEN 325 MG TABLET (FP) PO PRN (08:09)
[2023-03-16] MEDS ORDERED: IBUPROFEN 400 MG TABLET (FP) PO PRN (08:09)
[2023-03-16] MEDS ORDERED: oxyCODONE HCL 5 MG TABLET PO PRN (08:09)
[2023-03-16] MEDS ORDERED: ASPIRIN 81 MG CHEWABLE TABLETS PO ONE (09:52)
== END 2023-03-16 10:00 | disposition home or self-care (01) ==
LOC: JASU-SURG 04:11
PROVIDERS: ATTEND Obstetrics & Gynecology
DX: Z53.8 Procedure and treatment not carried out for other reasons (principal)
CPT/HCPCS: 82962

== ENCOUNTER 2023-05-02 09:16 | Inpatient (IN) | payer OTHER ==
[2023-05-02] MEDS ORDERED: SODIUM CHLORIDE 0.9% 500 ML INFUS.BAG IV ONE (10:07)
[2023-05-02] MEDS ORDERED: ONDANSETRON 4 MG/2 ML VIAL IVPB ONE (10:07)
[2023-05-02] MEDS ORDERED: FAMOTIDINE 20 MG/50 ML IVPB 20 MG/50 ML MG IVPB ONE (10:08)
[2023-05-02] MEDS ORDERED: ACETAMINOPHEN 1000 MG/100 ML BAG IVPB ONE (10:15)
[2023-05-02] MEDS ORDERED: ONDANSETRON 4 MG/2 ML VIAL ONE (10:35)
[2023-05-02] MEDS ORDERED: FAMOTIDINE 10 MG/ML VIAL IVPB ONE (10:35)
[2023-05-02] MEDS ORDERED: ACETAMINOPHEN INJECTION 100 ML IVPB ONE (10:35)
[2023-05-02 11:24] LABS: BASO % 0.5 % (0-2.0); HEMATOCRIT 37.3 % (32.4-45.2); HEMOGLOBIN 12.1 GM/dL (10.7-15.3); LYMPH % 10.3 % (8-40); MCH 24.7 pg (25.7-33.7); MCHC 32.4 g/dl (32.0-36.0); MEAN CELL VOLUME 76.3 fl (80-96); MEAN PLT VOLUME 7.8 fl (7.5-11.1); MONO % 5.2 % (3.8-10.2); PLATELET COUNT 448 10^3/uL (134-434); RBC 4.89 M/mm3 (3.60-5.2); RDW 17.4 % (11.6-15.6); WHITE BLOOD COUNT 16.7 K/mm3 (4.0-10.0)
[2023-05-02 11:30] LABS: INR 1.19 (0.83-1.09); PROTHROMBIN TIME (PATIENT) 13.8 SEC (9.7-13.0)
[2023-05-02 11:32] LABS: ACTIVATED PTT 30.4 SECONDS (25.2-36.5)
[2023-05-02 11:36] LABS: VENOUS BASE EXCESS -5.5 mmol/L (-2-2); VENOUS O2 SATURATION 38.9 % (70-80); VENOUS PCO2 35.3 mmHg (38-52); VENOUS PH 7.354 (7.310-7.410)
[2023-05-02] MEDS ORDERED: SODIUM CHLORIDE 0.9% 1000 ML INFUS.BAG IV ONE ×2 (11:39→13:09)
[2023-05-02] MEDS ORDERED: METOCLOPRAMIDE HCL INJECTION 10 MG/2 ML VIAL IVPB ONE (11:39)
[2023-05-02] MEDS ORDERED: METOCLOPRAMIDE HCL INJECTION 10 MG/2 ML VIAL ONE (11:43)
[2023-05-02 11:46] LABS: CHLORIDE 97 mmol/L (98-107); POTASSIUM 4.2 mmol/L (3.5-5.1); SODIUM 133 mmol/L (136-145)
[2023-05-02 11:48] LABS: CALCIUM 10.8 mg/dL (8.5-10.1)
[2023-05-02 11:49] LABS: ANION GAP 15 MMOL/L (8-16); BLOOD UREA NITROGEN 25.9 mg/dL (7-18); CO2 22 mmol/L (21-32); GLUCOSE,RANDOM 205 mg/dL (74-106); LIPASE 70 U/L (73-393); MAGNESIUM 1.8 mg/dL (1.8-2.4)
[2023-05-02 11:52] LABS: SGOT/AST 36 U/L (15-37); SGPT/ALT 37 U/L (13-61)
[2023-05-02 11:53] LABS: BILIRUBIN,TOTAL 0.5 mg/dL (0.2-1); TOT PROT 8.4 g/dl (6.4-8.2)
[2023-05-02 11:55] LABS: ALK PHOS 125 U/L (45-117)
[2023-05-02 12:00] LABS: LACTIC ACID 4.8 mmol/L (0.4-2.0); PHOSPHOROUS 0.8 mg/dL (2.5-4.9)
[2023-05-02] MEDS ORDERED: NAPH,MB-DB/K PH,MBDB POWDER PACKET PO ONE (12:55)
[2023-05-02] MEDS ORDERED: NAPH,MB-DB/K PH,MBDB POWDER PACKET ONE (13:26)
[2023-05-02] MEDS ORDERED: METOCLOPRAMIDE HCL 10 MG TABLET (FP) PO PRN (15:04)
[2023-05-02] MEDS ORDERED: ACETAMINOPHEN 325 MG TABLET (FP) PO PRN (15:04)
[2023-05-02] MEDS ORDERED: ALBUTEROL SO4 HFA INHALER IH PRN (15:06)
[2023-05-02 15:08] LABS: CHLORIDE 103 mmol/L (98-107); POTASSIUM 4.2 mmol/L (3.5-5.1); SODIUM 137 mmol/L (136-145)
[2023-05-02 15:10] LABS: ALBUMIN 3.5 g/dl (3.4-5.0); ANION GAP 10 MMOL/L (8-16); BLOOD UREA NITROGEN 24.6 mg/dL (7-18); CO2 25 mmol/L (21-32); GLUCOSE,RANDOM 118 mg/dL (74-106)
[2023-05-02 15:13] LABS: CREATININE 1.6 mg/dL (0.55-1.3); PHOSPHOROUS 2.4 mg/dL (2.5-4.9); SGOT/AST 31 U/L (15-37); SGPT/ALT 31 U/L (13-61)
[2023-05-02 15:15] LABS: BILIRUBIN,TOTAL 0.3 mg/dL (0.2-1); TOT PROT 6.9 g/dl (6.4-8.2)
[2023-05-02 15:16] LABS: ALK PHOS 98 U/L (45-117)
[2023-05-02 15:19] LABS: EPI CELLS 11 /uL (0-25.1); HYALINE CASTS 0 /uL (0-3.1); PH,URINE 5.5 (5.0-8.0); URINE APPEARANCE CLEAR; URINE BACTERIA 280 /uL (0-1359); URINE BILIRUBIN NEGATIVE (NEGATIVE); URINE COLOR YELLOW; URINE GLUCOSE (UA) TRACE (NEGATIVE); URINE KETONE NEGATIVE (NEGATIVE); URINE LEUK ESTERASE NEGATIVE (NEGATIVE); URINE NITRITE NEGATIVE (NEGATIVE); URINE PROTEIN 2+ (NEGATIVE); URINE RBC 2 /uL (0-23.9); URINE UROBILINOGEN 0.2 mg/dL (0.2-1.0); URINE WBC 12 /uL (0-25.8)
[2023-05-02 15:23] LABS: CALCIUM 9.1 mg/dL (8.5-10.1); LACTIC ACID 2.4 mmol/L (0.4-2.0)
[2023-05-02] MEDS ORDERED: ACETAMINOPHEN 325 MG TABLET (FP) ONE (22:07)
[2023-05-02] MEDS ORDERED: HEPARIN NA (PORCINE) 5,000 UNITS/ML 1ML VIAL ONE (22:08)
[2023-05-02] MEDS: HEPARIN NA (PORCINE) 5,000 UNITS/ML 1ML VIAL SQ SCH (22:21)
[2023-05-02] MEDS: INSULIN SLIDING SCALE (NOVOLOG) 1 VIAL SQ SCH (22:55)
[2023-05-02] MEDS: BUDESONIDE/FORMETEROL FUMARATE 80/4.5 mcg INHALER IH SCH (23:11)
[2023-05-02] MEDS: ATORVASTATIN CA 80 MG TABLET (FP) PO SCH (23:11)
[2023-05-02] MEDS ORDERED: ONDANSETRON 4 MG/2 ML VIAL IVPUSH ONE (23:34)
[2023-05-03 03:21] VITALS: BMI 37.8
[2023-05-03] MEDS ORDERED: ONDANSETRON 4 MG/2 ML VIAL IVPUSH ONE (03:29)
[2023-05-03] MEDS ORDERED: ACETAMINOPHEN 1000 MG/100 ML BAG IVPB ONE (03:33)
[2023-05-03] MEDS: INSULIN SLIDING SCALE (NOVOLOG) 1 VIAL SQ SCH ×4 (06:53→21:45)
[2023-05-03] MEDS ORDERED: LEVOTHYROXINE NA 150 MCG TABLET PO SCH ×2 (07:00→09:52)
[2023-05-03] MEDS: CLOPIDOGREL BISULFATE 75 MG TABLET (FP) PO SCH (07:13)
[2023-05-03] MEDS ORDERED: METOCLOPRAMIDE HCL INJECTION 10 MG/2 ML VIAL IVPB ONE (07:18)
[2023-05-03] MEDS: HEPARIN NA (PORCINE) 5,000 UNITS/ML 1ML VIAL SQ SCH ×3 (07:21→21:28)
[2023-05-03 07:39] LABS: BASO % 0.3 % (0-2.0); HEMATOCRIT 34.5 % (32.4-45.2); LYMPH % 16.1 % (8-40); MCH 25.1 pg (25.7-33.7); MCHC 32.1 g/dl (32.0-36.0); MEAN CELL VOLUME 78.4 fl (80-96); MEAN PLT VOLUME 7.9 fl (7.5-11.1); MONO % 7.2 % (3.8-10.2); NEUT % 75.4 % (42.8-82.8); PLATELET COUNT 374 10^3/uL (134-434); RDW 17.2 % (11.6-15.6); WHITE BLOOD COUNT 12.3 K/mm3 (4.0-10.0)
[2023-05-03 08:01] LABS: POTASSIUM 4.1 mmol/L (3.5-5.1)
[2023-05-03 08:12] LABS: CALCIUM 9.6 mg/dL (8.5-10.1)
[2023-05-03 08:13] LABS: ALBUMIN 3.5 g/dl (3.4-5.0); BLOOD UREA NITROGEN 16.9 mg/dL (7-18)
[2023-05-03 08:16] LABS: CREATININE 1.3 mg/dL (0.55-1.3)
[2023-05-03 08:18] LABS: BILIRUBIN,TOTAL 0.5 mg/dL (0.2-1)
[2023-05-03] MEDS: PANTOPRAZOLE SODIUM 40 MG VIAL IVPUSH SCH (09:47)
[2023-05-03] MEDS ORDERED: FAMOTIDINE 20 MG TABLET PO SCH (10:00)
[2023-05-03] MEDS ORDERED: LORazepam 2 MG/ML SDV VIAL IVPUSH ONE (10:00)
[2023-05-03] MEDS ORDERED: PANTOPRAZOLE 40 MG TABLET PO SCH (10:00)
[2023-05-03] MEDS: SERTRALINE HCL 50 MG TABLET (FP) PO SCH (10:37)
[2023-05-03] MEDS: BUDESONIDE/FORMETEROL FUMARATE 80/4.5 mcg INHALER IH SCH ×2 (10:37→21:33)
[2023-05-03] MEDS: LEVOTHYROXINE 100 MCG, LEVOTHYROXINE 75 MCG PO SCH (10:42)
[2023-05-03] MEDS: SUCRALFATE 1 GM/10 ML UNIT DOSE CUPS PO SCH ×2 (17:10→21:29)
[2023-05-03] MEDS: ATORVASTATIN CA 80 MG TABLET (FP) PO SCH (21:29)
[2023-05-03] MEDS: ACETAMINOPHEN 1000 MG/100 ML BAG IVPB PRN (21:32)
[2023-05-04] MEDS ORDERED: INSULIN (NOVOLOG) ASPART 100 UNITS/ML 10ML VIAL ONE ×4 (06:28→21:16)
[2023-05-04] MEDS: LEVOTHYROXINE 100 MCG, LEVOTHYROXINE 75 MCG PO SCH (06:34)
[2023-05-04] MEDS: CLOPIDOGREL BISULFATE 75 MG TABLET (FP) PO SCH (06:34)
[2023-05-04] MEDS: INSULIN SLIDING SCALE (NOVOLOG) 1 VIAL SQ SCH ×4 (06:35→21:22)
[2023-05-04] MEDS: HEPARIN NA (PORCINE) 5,000 UNITS/ML 1ML VIAL SQ SCH ×3 (06:35→21:01)
[2023-05-04] MEDS: SUCRALFATE 1 GM/10 ML UNIT DOSE CUPS PO SCH ×5 (06:36→21:48)
[2023-05-04] MEDS ORDERED: LEVOTHYROXINE 100 MCG, LEVOTHYROXINE 75 MCG PO SCH (07:00)
[2023-05-04 08:21] LABS: BASO % 0.7 % (0-2.0); EOS % 1.1 % (0-4.5); HEMATOCRIT 37.4 % (32.4-45.2); HEMOGLOBIN 11.7 GM/dL (10.7-15.3); LYMPH % 20.5 % (8-40); MCH 24.9 pg (25.7-33.7); MCHC 31.3 g/dl (32.0-36.0); MEAN CELL VOLUME 79.7 fl (80-96); MEAN PLT VOLUME 7.9 fl (7.5-11.1); MONO % 9.4 % (3.8-10.2); NEUT % 68.3 % (42.8-82.8); PLATELET COUNT 380 10^3/uL (134-434); RDW 17.3 % (11.6-15.6); WHITE BLOOD COUNT 10.3 K/mm3 (4.0-10.0)
[2023-05-04 09:06] LABS: POTASSIUM 4.3 mmol/L (3.5-5.1)
[2023-05-04 09:11] LABS: ALBUMIN 3.9 g/dl (3.4-5.0); BLOOD UREA NITROGEN 15.2 mg/dL (7-18); CALCIUM 9.8 mg/dL (8.5-10.1)
[2023-05-04 09:14] LABS: CREATININE 1.5 mg/dL (0.55-1.3); PHOSPHOROUS 3.6 mg/dL (2.5-4.9)
[2023-05-04] MEDS: PANTOPRAZOLE SODIUM 40 MG VIAL IVPUSH SCH (09:14)
[2023-05-04] MEDS: SERTRALINE HCL 50 MG TABLET (FP) PO SCH (09:14)
[2023-05-04 09:15] LABS: BILIRUBIN,TOTAL 0.4 mg/dL (0.2-1)
[2023-05-04] MEDS: BUDESONIDE/FORMETEROL FUMARATE 80/4.5 mcg INHALER IH SCH ×2 (09:15→21:02)
[2023-05-04 09:16] LABS: TOT PROT 7.5 g/dl (6.4-8.2)
[2023-05-04] MEDS: SODIUM CHLORIDE 0.9%/KCL 20 MEQ/1,000 ML INFUS.BAG IV SCH ×2 (09:17→21:48)
[2023-05-04] MEDS: ACETAMINOPHEN 1000 MG/100 ML BAG IVPB PRN (09:18)
[2023-05-04] MEDS: ONDANSETRON 4 MG/2 ML VIAL IVPUSH SCH ×4 (09:50→21:06)
[2023-05-04] MEDS ORDERED: ACETAMINOPHEN 1000 MG/100 ML BAG IVPB ONE (20:09)
[2023-05-04] MEDS: ATORVASTATIN CA 80 MG TABLET (FP) PO SCH (21:02)
[2023-05-05] MEDS: ONDANSETRON 4 MG/2 ML VIAL IVPUSH PRN ×4 (05:42→21:12)
[2023-05-05] MEDS: HEPARIN NA (PORCINE) 5,000 UNITS/ML 1ML VIAL SQ SCH ×3 (05:46→21:10)
[2023-05-05] MEDS ORDERED: INSULIN (NOVOLOG) ASPART 100 UNITS/ML 10ML VIAL ONE ×4 (06:26→21:22)
[2023-05-05] MEDS: CLOPIDOGREL BISULFATE 75 MG TABLET (FP) PO SCH (06:36)
[2023-05-05] MEDS: LEVOTHYROXINE 100 MCG, LEVOTHYROXINE 75 MCG PO SCH (06:36)
[2023-05-05] MEDS: INSULIN (LEVEMIR) 100 UNITS/ML UNITS SQ SCH (06:36)
[2023-05-05] MEDS: INSULIN SLIDING SCALE (NOVOLOG) 1 VIAL SQ SCH ×4 (06:37→21:22)
[2023-05-05] MEDS: SUCRALFATE 1 GM/10 ML UNIT DOSE CUPS PO SCH ×4 (06:43→21:10)
[2023-05-05 08:28] LABS: BASO % 0.7 % (0-2.0); EOS % 2.6 % (0-4.5); HEMOGLOBIN 11.1 GM/dL (10.7-15.3); LYMPH % 23.1 % (8-40); MCH 25.2 pg (25.7-33.7); MCHC 31.9 g/dl (32.0-36.0); MEAN CELL VOLUME 79.2 fl (80-96); MEAN PLT VOLUME 8.2 fl (7.5-11.1); MONO % 8.5 % (3.8-10.2); NEUT % 65.1 % (42.8-82.8); PLATELET COUNT 350 10^3/uL (134-434); RBC 4.41 M/mm3 (3.60-5.2); RDW 17.1 % (11.6-15.6); WHITE BLOOD COUNT 9.6 K/mm3 (4.0-10.0)
[2023-05-05 08:53] LABS: POTASSIUM 4.3 mmol/L (3.5-5.1)
[2023-05-05 09:10] LABS: CALCIUM 9.2 mg/dL (8.5-10.1)
[2023-05-05] MEDS: SERTRALINE HCL 50 MG TABLET (FP) PO SCH (09:10)
[2023-05-05] MEDS: PANTOPRAZOLE SODIUM 40 MG VIAL IVPUSH SCH (09:10)
[2023-05-05 09:11] LABS: ALBUMIN 3.4 g/dl (3.4-5.0); BLOOD UREA NITROGEN 14.3 mg/dL (7-18)
[2023-05-05] MEDS: SODIUM CHLORIDE 0.9%/KCL 20 MEQ/1,000 ML INFUS.BAG IV SCH (09:11)
[2023-05-05] MEDS: BUDESONIDE/FORMETEROL FUMARATE 80/4.5 mcg INHALER IH SCH ×2 (09:11→21:41)
[2023-05-05 09:14] LABS: CREATININE 1.3 mg/dL (0.55-1.3)
[2023-05-05 09:15] LABS: TOT PROT 6.9 g/dl (6.4-8.2)
[2023-05-05 09:16] LABS: BILIRUBIN,TOTAL 0.4 mg/dL (0.2-1)
[2023-05-05] MEDS: ACETAMINOPHEN 1000 MG/100 ML BAG IVPB PRN ×2 (10:39→21:13)
[2023-05-05] MEDS ORDERED: METOCLOPRAMIDE HCL INJECTION 10 MG/2 ML VIAL IVPUSH PRN (12:13)
[2023-05-05] MEDS: RIFAXIMIN 550 MG TABLET PO SCH ×2 (13:36→21:11)
[2023-05-05] MEDS: SIMETHICONE 80 MG TAB.CHEW (FP) PO SCH ×3 (13:37→21:11)
[2023-05-05] MEDS: ATORVASTATIN CA 80 MG TABLET (FP) PO SCH (21:11)
[2023-05-06] MEDS: SUCRALFATE 1 GM/10 ML UNIT DOSE CUPS PO SCH ×4 (06:12→21:58)
[2023-05-06] MEDS: INSULIN SLIDING SCALE (NOVOLOG) 1 VIAL SQ SCH ×4 (06:12→21:57)
[2023-05-06] MEDS: RIFAXIMIN 550 MG TABLET PO SCH ×3 (06:28→21:57)
[2023-05-06] MEDS: HEPARIN NA (PORCINE) 5,000 UNITS/ML 1ML VIAL SQ SCH ×3 (06:28→21:57)
[2023-05-06] MEDS: CLOPIDOGREL BISULFATE 75 MG TABLET (FP) PO SCH (06:28)
[2023-05-06] MEDS: LEVOTHYROXINE 100 MCG, LEVOTHYROXINE 75 MCG PO SCH (06:28)
[2023-05-06] MEDS: ONDANSETRON 4 MG/2 ML VIAL IVPUSH PRN ×2 (06:34→12:29)
[2023-05-06] MEDS: INSULIN (LEVEMIR) 100 UNITS/ML UNITS SQ SCH (08:13)
[2023-05-06] MEDS: PANTOPRAZOLE SODIUM 40 MG VIAL IVPUSH SCH (09:23)
[2023-05-06] MEDS: SERTRALINE HCL 50 MG TABLET (FP) PO SCH (09:23)
[2023-05-06] MEDS: BUDESONIDE/FORMETEROL FUMARATE 80/4.5 mcg INHALER IH SCH ×2 (09:23→21:58)
[2023-05-06] MEDS: SIMETHICONE 80 MG TAB.CHEW (FP) PO SCH ×4 (09:23→21:57)
[2023-05-06] MEDS: ACETAMINOPHEN 1000 MG/100 ML BAG IVPB PRN (09:29)
[2023-05-06] MEDS ORDERED: INSULIN (NOVOLOG) ASPART 100 UNITS/ML 10ML VIAL ONE ×2 (12:33→17:05)
[2023-05-06] MEDS: ATORVASTATIN CA 80 MG TABLET (FP) PO SCH (21:57)
[2023-05-07] MEDS: LEVOTHYROXINE 100 MCG, LEVOTHYROXINE 75 MCG PO SCH (06:53)
[2023-05-07] MEDS: RIFAXIMIN 550 MG TABLET PO SCH ×3 (06:54→21:29)
[2023-05-07] MEDS: HEPARIN NA (PORCINE) 5,000 UNITS/ML 1ML VIAL SQ SCH ×3 (06:54→21:29)
[2023-05-07] MEDS: CLOPIDOGREL BISULFATE 75 MG TABLET (FP) PO SCH (06:54)
[2023-05-07] MEDS: INSULIN SLIDING SCALE (NOVOLOG) 1 VIAL SQ SCH ×4 (06:56→21:37)
[2023-05-07] MEDS: SUCRALFATE 1 GM/10 ML UNIT DOSE CUPS PO SCH ×4 (06:56→21:37)
[2023-05-07] MEDS: INSULIN (LEVEMIR) 100 UNITS/ML UNITS SQ SCH (06:58)
[2023-05-07] MEDS ORDERED: INSULIN (NOVOLOG) ASPART 100 UNITS/ML 10ML VIAL ONE ×4 (07:14→21:41)
[2023-05-07] MEDS ORDERED: ACETAMINOPHEN 1000 MG/100 ML BAG IVPB ONE (07:30)
[2023-05-07 08:32] LABS: BASO % 0.6 % (0-2.0); EOS % 2.3 % (0-4.5); HEMATOCRIT 37.5 % (32.4-45.2); HEMOGLOBIN 12.2 GM/dL (10.7-15.3); LYMPH % 22.9 % (8-40); MCH 25.1 pg (25.7-33.7); MCHC 32.6 g/dl (32.0-36.0); MEAN CELL VOLUME 77.1 fl (80-96); MEAN PLT VOLUME 7.9 fl (7.5-11.1); MONO % 8.4 % (3.8-10.2); NEUT % 65.8 % (42.8-82.8); PLATELET COUNT 409 10^3/uL (134-434); RBC 4.86 M/mm3 (3.60-5.2); RDW 17.1 % (11.6-15.6); WHITE BLOOD COUNT 10.1 K/mm3 (4.0-10.0)
[2023-05-07 08:53] LABS: POTASSIUM 3.9 mmol/L (3.5-5.1)
[2023-05-07 08:55] LABS: ALBUMIN 3.6 g/dl (3.4-5.0); BLOOD UREA NITROGEN 19.2 mg/dL (7-18); CALCIUM 9.8 mg/dL (8.5-10.1)
[2023-05-07 08:59] LABS: CREATININE 1.8 mg/dL (0.55-1.3)
[2023-05-07 09:01] LABS: BILIRUBIN,TOTAL 0.4 mg/dL (0.2-1); TOT PROT 7.3 g/dl (6.4-8.2)
[2023-05-07] MEDS: BUDESONIDE/FORMETEROL FUMARATE 80/4.5 mcg INHALER IH SCH ×2 (09:33→21:36)
[2023-05-07] MEDS: SERTRALINE HCL 50 MG TABLET (FP) PO SCH (09:33)
[2023-05-07] MEDS: PANTOPRAZOLE SODIUM 40 MG VIAL IVPUSH SCH (09:33)
[2023-05-07] MEDS: SIMETHICONE 80 MG TAB.CHEW (FP) PO SCH ×4 (09:33→21:29)
[2023-05-07] MEDS: LIDOCAINE 5% TOPICAL PATCH TP SCH (17:01)
[2023-05-07] MEDS: ACETAMINOPHEN 1000 MG/100 ML BAG IVPB PRN (21:28)
[2023-05-07] MEDS: ATORVASTATIN CA 80 MG TABLET (FP) PO SCH (21:29)
[2023-05-07] MEDS: LIDOCAINE PATCH REMOVAL MC SCH (22:03)
[2023-05-08] MEDS: HEPARIN NA (PORCINE) 5,000 UNITS/ML 1ML VIAL SQ SCH ×3 (06:57→21:58)
[2023-05-08] MEDS: CLOPIDOGREL BISULFATE 75 MG TABLET (FP) PO SCH (06:58)
[2023-05-08] MEDS: SUCRALFATE 1 GM/10 ML UNIT DOSE CUPS PO SCH ×4 (06:58→23:32)
[2023-05-08] MEDS: RIFAXIMIN 550 MG TABLET PO SCH ×3 (06:58→22:40)
[2023-05-08] MEDS: LEVOTHYROXINE 100 MCG, LEVOTHYROXINE 75 MCG PO SCH (06:58)
[2023-05-08] MEDS: INSULIN SLIDING SCALE (NOVOLOG) 1 VIAL SQ SCH ×4 (06:58→21:58)
[2023-05-08] MEDS: INSULIN (LEVEMIR) 100 UNITS/ML UNITS SQ SCH (06:59)
[2023-05-08] MEDS: ACETAMINOPHEN 1000 MG/100 ML BAG IVPB PRN (07:07)
[2023-05-08] MEDS: LIDOCAINE 5% TOPICAL PATCH TP SCH (09:06)
[2023-05-08] MEDS: PANTOPRAZOLE SODIUM 40 MG VIAL IVPUSH SCH (09:07)
[2023-05-08] MEDS: SERTRALINE HCL 50 MG TABLET (FP) PO SCH (09:07)
[2023-05-08] MEDS: SIMETHICONE 80 MG TAB.CHEW (FP) PO SCH ×4 (09:07→21:58)
[2023-05-08] MEDS: LACTATED RINGERS SOLUTION 1,000 ML/1,000 ML INFUS.BAG IV SCH (09:08)
[2023-05-08] MEDS: BUDESONIDE/FORMETEROL FUMARATE 80/4.5 mcg INHALER IH SCH ×2 (09:17→22:39)
[2023-05-08 11:32] LABS: POTASSIUM 3.7 mmol/L (3.5-5.1)
[2023-05-08 11:33] LABS: CALCIUM 9.4 mg/dL (8.5-10.1)
[2023-05-08 11:37] LABS: CREATININE 1.7 mg/dL (0.55-1.3)
[2023-05-08] MEDS ORDERED: INSULIN (NOVOLOG) ASPART 100 UNITS/ML 10ML VIAL ONE ×2 (11:42→17:12)
[2023-05-08] MEDS: LIPASE/PROTEASE/AMYLASE 36,000 UNIT CAPSULE PO SCH ×2 (11:58→17:26)
[2023-05-08] MEDS: ATORVASTATIN CA 80 MG TABLET (FP) PO SCH (21:58)
[2023-05-08] MEDS ORDERED: ACETAMINOPHEN INJECTION 100 ML IVPB ONE (22:02)
[2023-05-08] MEDS: LIDOCAINE PATCH REMOVAL MC SCH (22:28)
[2023-05-09] MEDS: INSULIN (LEVEMIR) 100 UNITS/ML UNITS SQ SCH (06:35)
[2023-05-09] MEDS: CLOPIDOGREL BISULFATE 75 MG TABLET (FP) PO SCH (06:39)
[2023-05-09] MEDS: HEPARIN NA (PORCINE) 5,000 UNITS/ML 1ML VIAL SQ SCH ×2 (06:39→13:15)
[2023-05-09] MEDS: RIFAXIMIN 550 MG TABLET PO SCH ×3 (06:39→21:08)
[2023-05-09] MEDS: LEVOTHYROXINE 100 MCG, LEVOTHYROXINE 75 MCG PO SCH (06:40)
[2023-05-09] MEDS: ACETAMINOPHEN 1000 MG/100 ML BAG IVPB PRN ×2 (06:40→12:12)
[2023-05-09] MEDS: SUCRALFATE 1 GM/10 ML UNIT DOSE CUPS PO SCH ×4 (06:55→23:39)
[2023-05-09] MEDS: INSULIN SLIDING SCALE (NOVOLOG) 1 VIAL SQ SCH ×4 (06:58→21:09)
[2023-05-09 08:12] LABS: POTASSIUM 3.9 mmol/L (3.5-5.1)
[2023-05-09 08:18] LABS: CALCIUM 9.3 mg/dL (8.5-10.1)
[2023-05-09 08:19] LABS: BLOOD UREA NITROGEN 18.6 mg/dL (7-18)
[2023-05-09 08:22] LABS: CREATININE 1.4 mg/dL (0.55-1.3)
[2023-05-09] MEDS: LACTATED RINGERS SOLUTION 1,000 ML/1,000 ML INFUS.BAG IV SCH ×2 (08:59→09:43)
[2023-05-09] MEDS: LIDOCAINE 5% TOPICAL PATCH TP SCH (09:29)
[2023-05-09] MEDS: LIPASE/PROTEASE/AMYLASE 36,000 UNIT CAPSULE PO SCH ×3 (09:30→16:44)
[2023-05-09] MEDS: PANTOPRAZOLE SODIUM 40 MG VIAL IVPUSH SCH (09:30)
[2023-05-09] MEDS: SERTRALINE HCL 50 MG TABLET (FP) PO SCH (09:30)
[2023-05-09] MEDS: SIMETHICONE 80 MG TAB.CHEW (FP) PO SCH ×4 (09:30→21:08)
[2023-05-09] MEDS: BUDESONIDE/FORMETEROL FUMARATE 80/4.5 mcg INHALER IH SCH ×2 (09:31→23:42)
[2023-05-09] MEDS ORDERED: LACTULOSE 20 GM/30 ML UDC (FOR ORAL USE ONLY) PO SCH (10:00)
[2023-05-09] MEDS ORDERED: INSULIN (NOVOLOG) ASPART 100 UNITS/ML 10ML VIAL ONE ×2 (12:00→21:02)
[2023-05-09] MEDS: ATORVASTATIN CA 80 MG TABLET (FP) PO SCH (21:08)
[2023-05-09] MEDS ORDERED: METOCLOPRAMIDE HCL INJECTION 10 MG/2 ML VIAL IVPUSH PRN (23:02)
[2023-05-09] MEDS ORDERED: ALBUTEROL SO4 HFA INHALER IH PRN (23:02)
[2023-05-09] MEDS ORDERED: ONDANSETRON 4 MG/2 ML VIAL IVPUSH PRN (23:02)
[2023-05-09] MEDS ORDERED: ACETAMINOPHEN 1000 MG/100 ML BAG IVPB PRN (23:02)
[2023-05-09] MEDS ORDERED: LIDOCAINE PATCH REMOVAL MC SCH (23:02)
[2023-05-09] MEDS: LIDOCAINE PATCH REMOVAL MC SCH (23:39)
[2023-05-10] MEDS: LACTATED RINGERS SOLUTION 1,000 ML/1,000 ML INFUS.BAG IV SCH ×2 (01:15→10:01)
[2023-05-10] MEDS: RIFAXIMIN 550 MG TABLET PO SCH ×3 (06:44→22:27)
[2023-05-10] MEDS: SUCRALFATE 1 GM/10 ML UNIT DOSE CUPS PO SCH ×6 (06:44→22:32)
[2023-05-10] MEDS: LEVOTHYROXINE 100 MCG, LEVOTHYROXINE 75 MCG PO SCH (06:47)
[2023-05-10] MEDS: INSULIN (LEVEMIR) 100 UNITS/ML UNITS SQ SCH (06:54)
[2023-05-10] MEDS: INSULIN SLIDING SCALE (NOVOLOG) 1 VIAL SQ SCH ×4 (06:54→22:26)
[2023-05-10] MEDS: INSULIN (NOVOLOG) ASPART 100 UNITS/ML 10ML VIAL SQ SCH ×3 (06:59→16:59)
[2023-05-10] MEDS: SIMETHICONE 80 MG TAB.CHEW (FP) PO SCH ×4 (09:54→22:28)
[2023-05-10] MEDS: CLOPIDOGREL BISULFATE 75 MG TABLET (FP) PO SCH (09:54)
[2023-05-10] MEDS: LACTULOSE 20 GM/30 ML UDC (FOR ORAL USE ONLY) PO SCH (09:55)
[2023-05-10] MEDS: SERTRALINE HCL 50 MG TABLET (FP) PO SCH (09:55)
[2023-05-10] MEDS: PANTOPRAZOLE SODIUM 40 MG VIAL IVPUSH SCH (09:55)
[2023-05-10] MEDS: LIDOCAINE 5% TOPICAL PATCH TP SCH (09:57)
[2023-05-10] MEDS: BUDESONIDE/FORMETEROL FUMARATE 80/4.5 mcg INHALER IH SCH ×2 (10:10→22:30)
[2023-05-10] MEDS: LIPASE/PROTEASE/AMYLASE 36,000 UNIT CAPSULE PO SCH ×3 (11:15→17:00)
[2023-05-10] MEDS ORDERED: LIDOCAINE PATCH REMOVAL MC SCH (22:00)
[2023-05-10] MEDS ORDERED: ATORVASTATIN CA 80 MG TABLET (FP) PO SCH (22:00)
[2023-05-11] MEDS: LACTATED RINGERS SOLUTION 1,000 ML/1,000 ML INFUS.BAG IV SCH (05:33)
[2023-05-11] MEDS: RIFAXIMIN 550 MG TABLET PO SCH (05:33)
[2023-05-11] MEDS: LEVOTHYROXINE 100 MCG, LEVOTHYROXINE 75 MCG PO SCH (06:15)
[2023-05-11] MEDS: INSULIN (LEVEMIR) 100 UNITS/ML UNITS SQ SCH (06:16)
[2023-05-11] MEDS: SUCRALFATE 1 GM/10 ML UNIT DOSE CUPS PO SCH ×2 (06:16→11:56)
[2023-05-11] MEDS: INSULIN (NOVOLOG) ASPART 100 UNITS/ML 10ML VIAL SQ SCH ×2 (06:16→12:21)
[2023-05-11] MEDS: INSULIN SLIDING SCALE (NOVOLOG) 1 VIAL SQ SCH ×2 (06:17→12:21)
[2023-05-11 08:15] VITALS: BP 146/89; RESP 19; TEMP 98.5
[2023-05-11 08:35] VITALS: PULSE 99
[2023-05-11] MEDS: LIDOCAINE 5% TOPICAL PATCH TP SCH (09:34)
[2023-05-11] MEDS: LIPASE/PROTEASE/AMYLASE 36,000 UNIT CAPSULE PO SCH ×2 (09:34→12:24)
[2023-05-11] MEDS: LACTULOSE 20 GM/30 ML UDC (FOR ORAL USE ONLY) PO SCH (09:34)
[2023-05-11] MEDS: PANTOPRAZOLE SODIUM 40 MG VIAL IVPUSH SCH (09:34)
[2023-05-11] MEDS: SERTRALINE HCL 50 MG TABLET (FP) PO SCH (09:35)
[2023-05-11] MEDS: SIMETHICONE 80 MG TAB.CHEW (FP) PO SCH (09:35)
[2023-05-11] MEDS: BUDESONIDE/FORMETEROL FUMARATE 80/4.5 mcg INHALER IH SCH (09:35)
[2023-05-11] MEDS: CLOPIDOGREL BISULFATE 75 MG TABLET (FP) PO SCH (09:35)
== END 2023-05-11 13:42 | disposition home or self-care (01) | DRG 48 ==
LOC: JER 09:16 → JERBED 13:42 → J4W 23:23 → J5S 05-09 22:43
PROVIDERS: ADMIT Internal Medicine; ATTEND Internal Medicine
DX: E11.43 Type 2 diabetes mellitus with diabetic autonomic (poly)neuropathy (principal); K31.84 Gastroparesis; J44.9 Chronic obstructive pulmonary disease, unspecified; N17.9 Acute kidney failure, unspecified; M06.9 Rheumatoid arthritis, unspecified; N20.0 Calculus of kidney; K76.0 Fatty (change of) liver, not elsewhere classified; E11.21 Type 2 diabetes mellitus with diabetic nephropathy; K59.00 Constipation, unspecified; I25.10 Atherosclerotic heart disease of native coronary artery without angina pectoris; R77.8 Other specified abnormalities of plasma proteins; R11.2 Nausea with vomiting, unspecified; G47.33 Obstructive sleep apnea (adult) (pediatric); E78.5 Hyperlipidemia, unspecified; E87.20 Acidosis, unspecified; E03.9 Hypothyroidism, unspecified; E66.9 Obesity, unspecified; Z68.37 Body mass index [BMI] 37.0-37.9, adult; I24.8 Other forms of acute ischemic heart disease; I13.0 Hypertensive heart and chronic kidney disease with heart failure and stage 1 through stage 4 chronic kidney disease, or unspecified chronic kidney disease; E11.22 Type 2 diabetes mellitus with diabetic chronic kidney disease; N18.9 Chronic kidney disease, unspecified; I50.22 Chronic systolic (congestive) heart failure; Z95.5 Presence of coronary angioplasty implant and graft
CPT/HCPCS: 36415; 71045-TC-FY; 74176-TC; 80048; 80053; 81003; 82272; 82803; 82962; 83036; 83605; 83690; 83735; 84100; 84443; 84484; 84702; 84703; 85025; 85610; 85730; 86850; 86900; 86901; 87045; 87046; 87086; 87324; 87449; 93005; 93010; 94660; 99285-25; J1644

== ENCOUNTER 2023-05-22 14:10 | Observation (INO) | payer OTHER ==
[2023-05-22] MEDS ORDERED: ONDANSETRON 4 MG/2 ML VIAL IVPUSH ONE ×2 (14:51→19:07)
[2023-05-22] MEDS ORDERED: ACETAMINOPHEN 1000 MG/100 ML BAG IVPB ONE ×2 (14:51→21:19)
[2023-05-22] MEDS ORDERED: MAG HYDROX/AL HYDROX/SIMETH 30 ML UNIT-DOSE CUP PO ONE (14:51)
[2023-05-22] MEDS ORDERED: ONDANSETRON 4 MG/2 ML VIAL ONE ×2 (14:53→20:23)
[2023-05-22] MEDS ORDERED: ACETAMINOPHEN INJECTION 100 ML IVPB ONE (15:01)
[2023-05-22] MEDS ORDERED: MAG HYDROX/AL HYDROX/SIMETH 30 ML UNIT-DOSE CUP ONE (15:02)
[2023-05-22] MEDS ORDERED: SODIUM CHLORIDE 0.9% 500 ML INFUS.BAG IV ONE (15:06)
[2023-05-22] MEDS ORDERED: HYDROmorphone HCl 2 MG/ML VIAL IVPUSH ONE (15:14)
[2023-05-22] MEDS ORDERED: HYDROmorphone HCl 2 MG/ML VIAL ONE (15:53)
[2023-05-22 18:26] LABS: BASO % 0.4 % (0-2.0); EOS % 0.2 % (0-4.5); HEMATOCRIT 34.8 % (32.4-45.2); HEMOGLOBIN 11.2 GM/dL (10.7-15.3); LYMPH % 15.7 % (8-40); MCHC 32.2 g/dl (32.0-36.0); MEAN CELL VOLUME 77.5 fl (80-96); MEAN PLT VOLUME 7.7 fl (7.5-11.1); MONO % 9.3 % (3.8-10.2); NEUT % 74.4 % (42.8-82.8); PLATELET COUNT 338 10^3/uL (134-434); RBC 4.49 M/mm3 (3.60-5.2); RDW 17.5 % (11.6-15.6); WHITE BLOOD COUNT 10.3 K/mm3 (4.0-10.0)
[2023-05-22 18:49] LABS: POTASSIUM 3.1 mmol/L (3.5-5.1)
[2023-05-22 18:51] LABS: ALBUMIN 3.3 g/dl (3.4-5.0); CALCIUM 8.6 mg/dL (8.5-10.1)
[2023-05-22 18:52] LABS: BLOOD UREA NITROGEN 12.6 mg/dL (7-18)
[2023-05-22 18:54] LABS: CREATININE 1.4 mg/dL (0.55-1.3)
[2023-05-22 18:56] LABS: BILIRUBIN,TOTAL 0.4 mg/dL (0.2-1); TOT PROT 6.7 g/dl (6.4-8.2)
[2023-05-22 19:02] LABS: LACTIC ACID 2.8 mmol/L (0.4-2.0)
[2023-05-22] MEDS ORDERED: LACTATED RINGERS SOLUTION 1000 ML INFUS.BAG IV ONE (19:20)
[2023-05-22] MEDS ORDERED: KCL 10 MEQ IVPB 10 MEQ/100 ML INFUS.BAG IVPB ONE (20:23)
[2023-05-22] MEDS: KCL 10 MEQ IVPB 10 MEQ/100 ML INFUS.BAG IVPB SCH (21:09)
[2023-05-22] MEDS ORDERED: FLUTICASONE PROP 0.05% 16 GM NASAL SPRAY NS PRN (22:04)
[2023-05-23 00:11] VITALS: BMI 36.1
[2023-05-23] MEDS: DEXTROSE 5%-0.45% SALINE 1,000 ML IV SCH ×2 (00:22→22:41)
[2023-05-23] MEDS ORDERED: ONDANSETRON 4 MG/2 ML VIAL IVPUSH PRN (01:00)
[2023-05-23] MEDS: ACETAMINOPHEN 1000 MG/100 ML BAG IVPB ONE ×3 (01:14→04:28)
[2023-05-23] MEDS: ATORVASTATIN CA 80 MG TABLET (FP) PO SCH ×2 (01:15→22:41)
[2023-05-23 01:56] LABS: EPI CELLS 26 /uL (0-25.1); HYALINE CASTS 1 /uL (0-3.1); PH,URINE 5.5 (5.0-8.0); URINE APPEARANCE CLEAR; URINE BACTERIA 940 /uL (0-1359); URINE BILIRUBIN NEGATIVE (NEGATIVE); URINE COLOR YELLOW; URINE GLUCOSE (UA) NEGATIVE (NEGATIVE); URINE KETONE 1+ (NEGATIVE); URINE LEUK ESTERASE NEGATIVE (NEGATIVE); URINE NITRITE NEGATIVE (NEGATIVE); URINE PROTEIN 3+ (NEGATIVE); URINE RBC 13 /uL (0-23.9); URINE UROBILINOGEN 0.2 mg/dL (0.2-1.0); URINE WBC 29 /uL (0-25.8)
[2023-05-23] MEDS ORDERED: ACETAMINOPHEN 325 MG TABLET (FP) PO PRN (02:53)
[2023-05-23] MEDS ORDERED: POTASSIUM CHLORIDE ORAL LIQUID 20 MEQ/15 ML PO ONE (02:59)
[2023-05-23 03:20] LABS: MAGNESIUM 1.6 mg/dL (1.8-2.4)
[2023-05-23] MEDS: KCL 10 MEQ IVPB 10 MEQ/100 ML INFUS.BAG IVPB SCH ×5 (05:00→12:18)
[2023-05-23] MEDS ORDERED: MAGNESIUM SULF 50% (8.12 MEQ/2 ML-1 GM VIAL) IVPB ONE (05:11)
[2023-05-23 05:25] VITALS: RESP 18
[2023-05-23] MEDS: SUCRALFATE 1 GM/10 ML UNIT DOSE CUPS PO SCH ×4 (06:44→22:41)
[2023-05-23] MEDS: INSULIN SLIDING SCALE (NOVOLOG) 1 VIAL SQ SCH ×3 (06:45→16:32)
[2023-05-23] MEDS: LEVOTHYROXINE 125 MCG, LEVOTHYROXINE 50 MCG PO SCH (06:46)
[2023-05-23] MEDS ORDERED: LEVOTHYROXINE NA 150 MCG TABLET PO SCH (07:00)
[2023-05-23 08:18] LABS: BASO % 0.9 % (0-2.0); EOS % 1.4 % (0-4.5); HEMATOCRIT 32.8 % (32.4-45.2); HEMOGLOBIN 10.5 GM/dL (10.7-15.3); LYMPH % 27.2 % (8-40); MCH 25.1 pg (25.7-33.7); MCHC 31.9 g/dl (32.0-36.0); MEAN CELL VOLUME 78.8 fl (80-96); MEAN PLT VOLUME 7.9 fl (7.5-11.1); NEUT % 59.5 % (42.8-82.8); PLATELET COUNT 305 10^3/uL (134-434); RBC 4.16 M/mm3 (3.60-5.2); RDW 17.1 % (11.6-15.6)
[2023-05-23 08:35] LABS: POTASSIUM 3.7 mmol/L (3.5-5.1)
[2023-05-23 08:41] LABS: BLOOD UREA NITROGEN 14.3 mg/dL (7-18)
[2023-05-23 08:42] LABS: CALCIUM 8.6 mg/dL (8.5-10.1)
[2023-05-23 08:43] LABS: ALBUMIN 3.1 g/dl (3.4-5.0); MAGNESIUM 2.4 mg/dL (1.8-2.4)
[2023-05-23 08:46] LABS: BILIRUBIN,TOTAL 0.4 mg/dL (0.2-1); CREATININE 1.5 mg/dL (0.55-1.3); TOT PROT 6.3 g/dl (6.4-8.2)
[2023-05-23] MEDS: HEPARIN NA (PORCINE) 5,000 UNITS/ML 1ML VIAL SQ SCH ×2 (10:01→22:41)
[2023-05-23] MEDS: ASPIRIN COATED 81 MG TABLET.EC PO SCH (10:01)
[2023-05-23] MEDS: CLOPIDOGREL BISULFATE 75 MG TABLET (FP) PO SCH (10:02)
[2023-05-23] MEDS: PANTOPRAZOLE SODIUM 40 MG VIAL IVPUSH SCH (10:02)
[2023-05-23] MEDS: SERTRALINE HCL 50 MG TABLET (FP) PO SCH (10:03)
[2023-05-23] MEDS: METOCLOPRAMIDE HCL INJECTION 10 MG/2 ML VIAL IVPUSH SCH ×2 (10:03→17:14)
[2023-05-23] MEDS: metoPROLOL SUCCINATE 25 MG TAB.SR.24H (FP) PO SCH (10:03)
[2023-05-23] MEDS ORDERED: INSULIN (NOVOLOG) ASPART 100 UNITS/ML 10ML VIAL ONE ×3 (11:25→16:52)
[2023-05-23] MEDS: ACETAMINOPHEN 1000 MG/100 ML BAG IVPB PRN ×2 (12:35→23:26)
[2023-05-24] MEDS: METOCLOPRAMIDE HCL INJECTION 10 MG/2 ML VIAL IVPUSH SCH ×2 (02:50→10:23)
[2023-05-24] MEDS: DEXTROSE 5%-0.45% SALINE 1,000 ML IV SCH (03:20)
[2023-05-24] MEDS ORDERED: INSULIN (NOVOLOG) ASPART 100 UNITS/ML 10ML VIAL ONE (05:43)
[2023-05-24] MEDS: SUCRALFATE 1 GM/10 ML UNIT DOSE CUPS PO SCH ×2 (06:14→10:22)
[2023-05-24] MEDS: LEVOTHYROXINE 125 MCG, LEVOTHYROXINE 50 MCG PO SCH (06:32)
[2023-05-24] MEDS: INSULIN SLIDING SCALE (NOVOLOG) 1 VIAL SQ SCH ×2 (06:34→12:00)
[2023-05-24] MEDS: SERTRALINE HCL 50 MG TABLET (FP) PO SCH (10:21)
[2023-05-24] MEDS: CLOPIDOGREL BISULFATE 75 MG TABLET (FP) PO SCH (10:22)
[2023-05-24] MEDS: metoPROLOL SUCCINATE 25 MG TAB.SR.24H (FP) PO SCH (10:22)
[2023-05-24] MEDS: ASPIRIN COATED 81 MG TABLET.EC PO SCH (10:22)
[2023-05-24] MEDS: HEPARIN NA (PORCINE) 5,000 UNITS/ML 1ML VIAL SQ SCH (10:22)
[2023-05-24] MEDS: PANTOPRAZOLE SODIUM 40 MG VIAL IVPUSH SCH (10:23)
[2023-05-24 15:06] VITALS: BP 132/79; PULSE 87; TEMP 98.7
== END 2023-05-24 14:35 | disposition home or self-care (01) ==
LOC: JER 14:10 → JERBED 19:32 → J7W 23:29
PROVIDERS: ADMIT Internal Medicine; ATTEND Family Medicine
PROC: 3E033NZ Introduction of Analgesics, Hypnotics, Sedatives into Peripheral Vein, Percutaneous Approach (ICD-10-PCS; principal; 2023-05-22)
PROC: 3E023GC Introduction of Other Therapeutic Substance into Muscle, Percutaneous Approach (ICD-10-PCS; 2023-05-22)
PROC: 3E033GC Introduction of Other Therapeutic Substance into Peripheral Vein, Percutaneous Approach (ICD-10-PCS; 2023-05-22)
PROC: 3E013VG Introduction of Insulin into Subcutaneous Tissue, Percutaneous Approach (ICD-10-PCS; 2023-05-22)
PROC: 3E0337Z Introduction of Electrolytic and Water Balance Substance into Peripheral Vein, Percutaneous Approach (ICD-10-PCS; 2023-05-22)
DX: N17.9 Acute kidney failure, unspecified (principal); I25.2 Old myocardial infarction; I11.0 Hypertensive heart disease with heart failure; I50.9 Heart failure, unspecified; Z95.5 Presence of coronary angioplasty implant and graft; E11.43 Type 2 diabetes mellitus with diabetic autonomic (poly)neuropathy; K31.84 Gastroparesis; J44.9 Chronic obstructive pulmonary disease, unspecified; G47.33 Obstructive sleep apnea (adult) (pediatric); Z87.891 Personal history of nicotine dependence; Z88.8 Allergy status to other drugs, medicaments and biological substances; Z88.0 Allergy status to penicillin; Z91.018 Allergy to other foods; E03.9 Hypothyroidism, unspecified; E78.5 Hyperlipidemia, unspecified; R11.15 Cyclical vomiting syndrome unrelated to migraine
CPT/HCPCS: 36415; 71045-TC-FY; 80053; 81003; 82962; 83605; 83690; 83735; 83993; 84484; 85025; 87045; 87046; 87086; 87205; 87209; 93005; 93010; 94660; 96361; 96365; 96372; 96375; 96376; 99285-25; G0378; J1644

== ENCOUNTER 2023-06-14 20:28 | Inpatient (IN) | payer OTHER ==
[2023-06-14 21:31] LABS: BASO % 0.6 % (0-2.0); EOS % 0.3 % (0-4.5); HEMATOCRIT 42.3 % (32.4-45.2); LYMPH % 10.2 % (8-40); MCH 24.9 pg (25.7-33.7); MCHC 33.1 g/dl (32.0-36.0); MEAN CELL VOLUME 75.3 fl (80-96); MEAN PLT VOLUME 7.7 fl (7.5-11.1); NEUT % 81.9 % (42.8-82.8); PLATELET COUNT 483 10^3/uL (134-434); RBC 5.61 M/mm3 (3.60-5.2); RDW 17.6 % (11.6-15.6); WHITE BLOOD COUNT 16.9 K/mm3 (4.0-10.0)
[2023-06-14 21:40] LABS: INR 1.2 (0.83-1.09); PROTHROMBIN TIME (PATIENT) 13.9 SEC (9.7-13.0)
[2023-06-14 21:42] LABS: ACTIVATED PTT 31.5 SECONDS (25.2-36.5)
[2023-06-14 21:46] LABS: CHLORIDE 99 mmol/L (98-107); POTASSIUM 4.4 mmol/L (3.5-5.1); SODIUM 134 mmol/L (136-145)
[2023-06-14 21:50] LABS: ALBUMIN 3.9 g/dl (3.4-5.0); ANION GAP 11 MMOL/L (8-16); BLOOD UREA NITROGEN 30.9 mg/dL (7-18); CALCIUM 9.4 mg/dL (8.5-10.1); CO2 24 mmol/L (21-32); GLUCOSE,RANDOM 258 mg/dL (74-106); MAGNESIUM 1.8 mg/dL (1.8-2.4)
[2023-06-14 21:53] LABS: PHOSPHOROUS 3.6 mg/dL (2.5-4.9); SGOT/AST 41 U/L (15-37); SGPT/ALT 48 U/L (13-61)
[2023-06-14 21:54] LABS: CREATININE 2.5 mg/dL (0.55-1.3)
[2023-06-14 21:55] LABS: BILIRUBIN,TOTAL 0.5 mg/dL (0.2-1)
[2023-06-14 21:56] LABS: ALK PHOS 116 U/L (45-117)
[2023-06-14] MEDS ORDERED: ACETAMINOPHEN 1000 MG/100 ML BAG IVPB ONE (23:30)
[2023-06-14] MEDS ORDERED: SODIUM CHLORIDE 0.9% 500 ML INFUS.BAG IV ONE (23:30)
[2023-06-14] MEDS ORDERED: ACETAMINOPHEN INJECTION 100 ML IVPB ONE (23:31)
[2023-06-15 06:55] LABS: BASO % 1.2 % (0-2.0); EOS % 0.3 % (0-4.5); HEMATOCRIT 37.2 % (32.4-45.2); HEMOGLOBIN 11.8 GM/dL (10.7-15.3); MCH 24.5 pg (25.7-33.7); MCHC 31.7 g/dl (32.0-36.0); MEAN CELL VOLUME 77.4 fl (80-96); MEAN PLT VOLUME 8.3 fl (7.5-11.1); MONO % 7.3 % (3.8-10.2); NEUT % 73.2 % (42.8-82.8); PLATELET COUNT 403 10^3/uL (134-434); RDW 17.2 % (11.6-15.6); WHITE BLOOD COUNT 13.5 K/mm3 (4.0-10.0)
[2023-06-15] MEDS ORDERED: LEVOTHYROXINE NA 150 MCG TABLET PO SCH (07:00)
[2023-06-15] MEDS ORDERED: ACETAMINOPHEN 1000 MG/100 ML BAG IVPB ONE (07:35)
[2023-06-15] MEDS ORDERED: ONDANSETRON 4 MG/2 ML VIAL IVPUSH ONE (07:35)
[2023-06-15] MEDS ORDERED: CLOPIDOGREL BISULFATE 75 MG TABLET (FP) ONE (07:56)
[2023-06-15] MEDS ORDERED: metoPROLOL SUCCINATE 25 MG TAB.SR.24H (FP) PO ONE (07:56)
[2023-06-15] MEDS ORDERED: SERTRALINE HCL 50 MG TABLET (FP) ONE (07:56)
[2023-06-15] MEDS ORDERED: LEVOTHYROXINE NA 100 MCG TABLET (FP) ONE (07:56)
[2023-06-15] MEDS ORDERED: ASPIRIN COATED 81 MG TABLET.EC ONE (07:56)
[2023-06-15] MEDS ORDERED: ONDANSETRON 4 MG/2 ML VIAL ONE ×2 (07:57→12:29)
[2023-06-15] MEDS ORDERED: ACETAMINOPHEN INJECTION 100 ML IVPB ONE (07:57)
[2023-06-15] MEDS ORDERED: LEVOTHYROXINE NA 75 MCG TABLET (FP) ONE (07:57)
[2023-06-15] MEDS: INSULIN SLIDING SCALE (NOVOLOG) 1 VIAL SQ SCH ×4 (08:08→21:33)
[2023-06-15] MEDS: LEVOTHYROXINE 75 MCG, LEVOTHYROXINE 100 MCG PO SCH (08:10)
[2023-06-15 10:56] LABS: ALBUMIN 3.2 g/dl (3.4-5.0); BILIRUBIN,TOTAL 0.7 mg/dL (0.2-1); BLOOD UREA NITROGEN 36.4 mg/dL (7-18); CALCIUM 8.4 mg/dL (8.5-10.1); CREATININE 2.4 mg/dL (0.55-1.3); MAGNESIUM 1.7 mg/dL (1.8-2.4); TOT PROT 6.4 g/dl (6.4-8.2)
[2023-06-15] MEDS: CLOPIDOGREL BISULFATE 75 MG TABLET (FP) PO SCH (10:57)
[2023-06-15] MEDS: ASPIRIN COATED 81 MG TABLET.EC PO SCH (10:57)
[2023-06-15] MEDS: metoPROLOL SUCCINATE 25 MG TAB.SR.24H (FP) PO SCH (10:57)
[2023-06-15] MEDS: SERTRALINE HCL 50 MG TABLET (FP) PO SCH (10:57)
[2023-06-15] MEDS ORDERED: morphine SULFATE 4 MG/ML VIAL ONE (12:24)
[2023-06-15] MEDS: ONDANSETRON 4 MG/2 ML VIAL IVPUSH PRN ×2 (12:32→15:43)
[2023-06-15] MEDS: SODIUM CHLORIDE 1,000 ML IV SCH (18:15)
[2023-06-15] MEDS ORDERED: INSULIN (NOVOLOG) ASPART 100 UNITS/ML 10ML VIAL ONE (21:33)
[2023-06-15] MEDS: ATORVASTATIN CA 80 MG TABLET (FP) PO SCH (21:34)
[2023-06-16] MEDS ORDERED: INSULIN (NOVOLOG) ASPART 100 UNITS/ML 10ML VIAL ONE ×3 (06:39→21:09)
[2023-06-16] MEDS: INSULIN SLIDING SCALE (NOVOLOG) 1 VIAL SQ SCH ×4 (06:40→21:06)
[2023-06-16] MEDS: LEVOTHYROXINE 75 MCG, LEVOTHYROXINE 100 MCG PO SCH (06:43)
[2023-06-16] MEDS: ONDANSETRON 4 MG/2 ML VIAL IVPUSH PRN (06:53)
[2023-06-16 07:40] LABS: HEMATOCRIT 37.2 % (32.4-45.2); MCHC 32.1 g/dl (32.0-36.0); MEAN CELL VOLUME 77.9 fl (80-96); MEAN PLT VOLUME 8.1 fl (7.5-11.1); PLATELET COUNT 366 10^3/uL (134-434); RBC 4.78 M/mm3 (3.60-5.2); RDW 17.6 % (11.6-15.6); WHITE BLOOD COUNT 8.7 K/mm3 (4.0-10.0)
[2023-06-16 07:53] LABS: POTASSIUM 4.2 mmol/L (3.5-5.1)
[2023-06-16 07:55] LABS: CALCIUM 8.9 mg/dL (8.5-10.1)
[2023-06-16 07:56] LABS: ALBUMIN 3.4 g/dl (3.4-5.0); BLOOD UREA NITROGEN 32.3 mg/dL (7-18)
[2023-06-16 07:59] LABS: CREATININE 1.9 mg/dL (0.55-1.3)
[2023-06-16 08:24] LABS: BILIRUBIN,TOTAL 0.4 mg/dL (0.2-1)
[2023-06-16 08:51] LABS: PH,URINE 5.5 (5.0-8.0); URINE APPEARANCE CLEAR; URINE BILIRUBIN NEGATIVE (NEGATIVE); URINE COLOR YELLOW; URINE GLUCOSE (UA) TRACE (NEGATIVE); URINE KETONE TRACE (NEGATIVE); URINE LEUK ESTERASE NEGATIVE (NEGATIVE); URINE NITRITE NEGATIVE (NEGATIVE); URINE PROTEIN 2+ (NEGATIVE); URINE UROBILINOGEN 0.2 mg/dL (0.2-1.0)
[2023-06-16] MEDS: ASPIRIN COATED 81 MG TABLET.EC PO SCH (09:01)
[2023-06-16] MEDS: CLOPIDOGREL BISULFATE 75 MG TABLET (FP) PO SCH (09:04)
[2023-06-16] MEDS: SERTRALINE HCL 50 MG TABLET (FP) PO SCH (09:04)
[2023-06-16] MEDS: metoPROLOL SUCCINATE 25 MG TAB.SR.24H (FP) PO SCH (09:04)
[2023-06-16 09:18] LABS: URINE BACTERIA 253.6 /uL (0-1359); URINE RBC 5.2 /uL (0-23.9); URINE WBC 7.7 /uL (0-25.8)
[2023-06-16] MEDS: PANTOPRAZOLE 40 MG TABLET PO SCH (09:38)
[2023-06-16] MEDS: SODIUM CHLORIDE 1,000 ML IV SCH ×2 (09:38→13:43)
[2023-06-16] MEDS: ATORVASTATIN CA 80 MG TABLET (FP) PO SCH (21:01)
[2023-06-16] MEDS: ACETAMINOPHEN 325 MG TABLET (FP) PO PRN (21:01)
[2023-06-17] MEDS: LEVOTHYROXINE 75 MCG, LEVOTHYROXINE 100 MCG PO SCH (06:45)
[2023-06-17] MEDS: INSULIN SLIDING SCALE (NOVOLOG) 1 VIAL SQ SCH ×4 (06:45→22:51)
[2023-06-17] MEDS: ACETAMINOPHEN 325 MG TABLET (FP) PO PRN (10:23)
[2023-06-17] MEDS: metoPROLOL SUCCINATE 25 MG TAB.SR.24H (FP) PO SCH (10:25)
[2023-06-17] MEDS: SERTRALINE HCL 50 MG TABLET (FP) PO SCH (10:25)
[2023-06-17] MEDS: CLOPIDOGREL BISULFATE 75 MG TABLET (FP) PO SCH (10:25)
[2023-06-17] MEDS: PANTOPRAZOLE 40 MG TABLET PO SCH (10:25)
[2023-06-17] MEDS: ASPIRIN COATED 81 MG TABLET.EC PO SCH (10:26)
[2023-06-17] MEDS: SODIUM CHLORIDE 1,000 ML IV SCH (17:11)
[2023-06-17] MEDS: ATORVASTATIN CA 80 MG TABLET (FP) PO SCH (22:51)
[2023-06-17] MEDS: INSULIN (LEVEMIR) 100 UNITS/ML UNITS SQ SCH (22:52)
[2023-06-18] MEDS: LEVOTHYROXINE 75 MCG, LEVOTHYROXINE 100 MCG PO SCH (06:49)
[2023-06-18] MEDS: INSULIN SLIDING SCALE (NOVOLOG) 1 VIAL SQ SCH ×4 (06:51→21:23)
[2023-06-18] MEDS: INSULIN (LEVEMIR) 100 UNITS/ML UNITS SQ SCH ×2 (06:52→21:23)
[2023-06-18 08:28] LABS: BASO % 0.7 % (0-2.0); EOS % 4.4 % (0-4.5); HEMOGLOBIN 11.3 GM/dL (10.7-15.3); LYMPH % 23.8 % (8-40); MCH 25.3 pg (25.7-33.7); MCHC 33.3 g/dl (32.0-36.0); MEAN CELL VOLUME 76.1 fl (80-96); MEAN PLT VOLUME 8.2 fl (7.5-11.1); MONO % 8.3 % (3.8-10.2); NEUT % 62.8 % (42.8-82.8); PLATELET COUNT 381 10^3/uL (134-434); RBC 4.47 M/mm3 (3.60-5.2); RDW 17.7 % (11.6-15.6); WHITE BLOOD COUNT 9.4 K/mm3 (4.0-10.0)
[2023-06-18 08:56] LABS: POTASSIUM 4.7 mmol/L (3.5-5.1)
[2023-06-18 09:00] LABS: ALBUMIN 3.2 g/dl (3.4-5.0); BLOOD UREA NITROGEN 22.9 mg/dL (7-18); CALCIUM 9.1 mg/dL (8.5-10.1)
[2023-06-18 09:03] LABS: CREATININE 1.5 mg/dL (0.55-1.3)
[2023-06-18 09:04] LABS: BILIRUBIN,TOTAL 0.3 mg/dL (0.2-1); TOT PROT 6.5 g/dl (6.4-8.2)
[2023-06-18] MEDS: metoPROLOL SUCCINATE 25 MG TAB.SR.24H (FP) PO SCH (10:03)
[2023-06-18] MEDS: ASPIRIN COATED 81 MG TABLET.EC PO SCH (10:03)
[2023-06-18] MEDS: PANTOPRAZOLE 40 MG TABLET PO SCH (10:03)
[2023-06-18] MEDS: CLOPIDOGREL BISULFATE 75 MG TABLET (FP) PO SCH (10:03)
[2023-06-18] MEDS: SERTRALINE HCL 50 MG TABLET (FP) PO SCH (10:03)
[2023-06-18] MEDS ORDERED: INSULIN (NOVOLOG) ASPART 100 UNITS/ML 10ML VIAL ONE (12:11)
[2023-06-18] MEDS: SODIUM CHLORIDE 1,000 ML IV SCH (17:30)
[2023-06-18] MEDS: ATORVASTATIN CA 80 MG TABLET (FP) PO SCH (21:24)
[2023-06-19] MEDS: LEVOTHYROXINE 75 MCG, LEVOTHYROXINE 100 MCG PO SCH (06:00)
[2023-06-19] MEDS: INSULIN (LEVEMIR) 100 UNITS/ML UNITS SQ SCH ×2 (06:00→21:25)
[2023-06-19] MEDS: INSULIN SLIDING SCALE (NOVOLOG) 1 VIAL SQ SCH ×4 (06:01→21:26)
[2023-06-19] MEDS ORDERED: INSULIN (NOVOLOG) ASPART 100 UNITS/ML 10ML VIAL ONE ×2 (07:42→21:19)
[2023-06-19] MEDS: metoPROLOL SUCCINATE 25 MG TAB.SR.24H (FP) PO SCH (09:39)
[2023-06-19] MEDS: SERTRALINE HCL 50 MG TABLET (FP) PO SCH (09:39)
[2023-06-19] MEDS: PANTOPRAZOLE 40 MG TABLET PO SCH (09:39)
[2023-06-19] MEDS: CLOPIDOGREL BISULFATE 75 MG TABLET (FP) PO SCH (09:39)
[2023-06-19] MEDS: ASPIRIN COATED 81 MG TABLET.EC PO SCH (09:40)
[2023-06-19] MEDS: ALBUTEROL SO4 2.5/IPRATROPIUM 0.5 INH SOL 3 ML VIAL.NEB. NEB SCH ×3 (11:50→20:40)
[2023-06-19] MEDS: ATORVASTATIN CA 80 MG TABLET (FP) PO SCH (21:24)
[2023-06-19] MEDS: TOPIRAMATE 25 MG TABLET PO SCH (21:24)
[2023-06-19] MEDS: PRAMIPEXOLE DIHYDROCHLORIDE 0.125 MG TABLET PO SCH (21:25)
[2023-06-19] MEDS: BUDESONIDE/FORMETEROL FUMARATE 160/4.5 mcg INHALER IH SCH (21:27)
[2023-06-20] MEDS: LEVOTHYROXINE 75 MCG, LEVOTHYROXINE 100 MCG PO SCH (06:12)
[2023-06-20] MEDS: PRAMIPEXOLE DIHYDROCHLORIDE 0.125 MG TABLET PO SCH ×3 (06:12→21:11)
[2023-06-20] MEDS ORDERED: INSULIN (NOVOLOG) ASPART 100 UNITS/ML 10ML VIAL ONE ×3 (06:25→21:28)
[2023-06-20] MEDS: INSULIN (LEVEMIR) 100 UNITS/ML UNITS SQ SCH ×2 (06:39→21:58)
[2023-06-20] MEDS: INSULIN SLIDING SCALE (NOVOLOG) 1 VIAL SQ SCH ×4 (06:40→21:59)
[2023-06-20] MEDS: ALBUTEROL SO4 2.5/IPRATROPIUM 0.5 INH SOL 3 ML VIAL.NEB. NEB SCH ×4 (08:20→20:39)
[2023-06-20] MEDS: CLOPIDOGREL BISULFATE 75 MG TABLET (FP) PO SCH (09:53)
[2023-06-20] MEDS: PANTOPRAZOLE 40 MG TABLET PO SCH (09:53)
[2023-06-20] MEDS: SERTRALINE HCL 50 MG TABLET (FP) PO SCH (09:53)
[2023-06-20] MEDS: ASPIRIN COATED 81 MG TABLET.EC PO SCH (09:53)
[2023-06-20] MEDS: metoPROLOL SUCCINATE 25 MG TAB.SR.24H (FP) PO SCH (09:53)
[2023-06-20] MEDS: TOPIRAMATE 25 MG TABLET PO SCH ×2 (09:53→21:11)
[2023-06-20] MEDS: BUDESONIDE/FORMETEROL FUMARATE 160/4.5 mcg INHALER IH SCH ×2 (09:55→22:03)
[2023-06-20] MEDS ORDERED: IRON SUCROSE INJECTION 200 MG in SODIUM CHLORIDE 90 ML IVPB ONE (15:46)
[2023-06-20] MEDS: ATORVASTATIN CA 80 MG TABLET (FP) PO SCH (21:11)
[2023-06-20] MEDS ORDERED: PNEUMOC 20-VAL CONJ-DIP CRM/PF 0.5 ML SYRINGE IM ONE (22:00)
[2023-06-21] MEDS ORDERED: INSULIN (NOVOLOG) ASPART 100 UNITS/ML 10ML VIAL ONE ×2 (06:02→21:16)
[2023-06-21] MEDS: PRAMIPEXOLE DIHYDROCHLORIDE 0.125 MG TABLET PO SCH (06:19)
[2023-06-21] MEDS: INSULIN (LEVEMIR) 100 UNITS/ML UNITS SQ SCH ×2 (06:19→21:22)
[2023-06-21] MEDS: LEVOTHYROXINE 75 MCG, LEVOTHYROXINE 100 MCG PO SCH (06:19)
[2023-06-21] MEDS: INSULIN SLIDING SCALE (NOVOLOG) 1 VIAL SQ SCH ×4 (06:20→21:23)
[2023-06-21] MEDS ORDERED: INSULIN (LEVEMIR) 100 UNITS/ML UNITS SQ ONE (07:59)
[2023-06-21] MEDS: ALBUTEROL SO4 2.5/IPRATROPIUM 0.5 INH SOL 3 ML VIAL.NEB. NEB SCH ×4 (08:09→19:42)
[2023-06-21] MEDS: ONDANSETRON 4 MG/2 ML VIAL IVPUSH PRN ×3 (09:17→20:53)
[2023-06-21] MEDS: ACETAMINOPHEN 325 MG TABLET (FP) PO PRN ×2 (09:18→21:25)
[2023-06-21] MEDS: SERTRALINE HCL 50 MG TABLET (FP) PO SCH (09:18)
[2023-06-21] MEDS: ASPIRIN COATED 81 MG TABLET.EC PO SCH (09:19)
[2023-06-21] MEDS: CLOPIDOGREL BISULFATE 75 MG TABLET (FP) PO SCH (09:19)
[2023-06-21] MEDS: PANTOPRAZOLE 40 MG TABLET PO SCH (09:19)
[2023-06-21] MEDS: PRAMIPEXOLE DIHYDROCHLORIDE 0.25 MG TABLET PO SCH ×2 (09:19→21:20)
[2023-06-21] MEDS: TOPIRAMATE 25 MG TABLET PO SCH ×2 (09:20→21:20)
[2023-06-21] MEDS: metoPROLOL SUCCINATE 25 MG TAB.SR.24H (FP) PO SCH (09:20)
[2023-06-21] MEDS: BUDESONIDE/FORMETEROL FUMARATE 160/4.5 mcg INHALER IH SCH ×2 (09:21→21:22)
[2023-06-21 12:15] LABS: POTASSIUM 4.4 mmol/L (3.5-5.1)
[2023-06-21 13:06] LABS: ALBUMIN 3.2 g/dl (3.4-5.0); BLOOD UREA NITROGEN 18.2 mg/dL (7-18); CALCIUM 9.4 mg/dL (8.5-10.1)
[2023-06-21 13:09] LABS: CREATININE 1.5 mg/dL (0.55-1.3)
[2023-06-21 13:11] LABS: BILIRUBIN,TOTAL 0.2 mg/dL (0.2-1); TOT PROT 6.5 g/dl (6.4-8.2)
[2023-06-21 14:21] VITALS: BMI 36.8
[2023-06-21] MEDS: ATORVASTATIN CA 80 MG TABLET (FP) PO SCH (21:20)
[2023-06-22] MEDS ORDERED: INSULIN (NOVOLOG) ASPART 100 UNITS/ML 10ML VIAL ONE (06:28)
[2023-06-22] MEDS: LEVOTHYROXINE 75 MCG, LEVOTHYROXINE 100 MCG PO SCH (06:42)
[2023-06-22] MEDS: INSULIN SLIDING SCALE (NOVOLOG) 1 VIAL SQ SCH ×3 (06:43→16:58)
[2023-06-22] MEDS: INSULIN (LEVEMIR) 100 UNITS/ML UNITS SQ SCH (06:43)
[2023-06-22] MEDS ORDERED: IRON SUCROSE INJECTION 200 MG in SODIUM CHLORIDE 90 ML IVPB ONE (07:48)
[2023-06-22] MEDS: ALBUTEROL SO4 2.5/IPRATROPIUM 0.5 INH SOL 3 ML VIAL.NEB. NEB SCH ×3 (07:49→15:24)
[2023-06-22] MEDS: PANTOPRAZOLE 40 MG TABLET PO SCH (09:22)
[2023-06-22] MEDS: ASPIRIN COATED 81 MG TABLET.EC PO SCH (09:22)
[2023-06-22] MEDS: PRAMIPEXOLE DIHYDROCHLORIDE 0.25 MG TABLET PO SCH (09:22)
[2023-06-22] MEDS: CLOPIDOGREL BISULFATE 75 MG TABLET (FP) PO SCH (09:22)
[2023-06-22] MEDS: metoPROLOL SUCCINATE 25 MG TAB.SR.24H (FP) PO SCH (09:22)
[2023-06-22] MEDS: TOPIRAMATE 25 MG TABLET PO SCH (09:22)
[2023-06-22] MEDS: SERTRALINE HCL 50 MG TABLET (FP) PO SCH (09:23)
[2023-06-22] MEDS: BUDESONIDE/FORMETEROL FUMARATE 160/4.5 mcg INHALER IH SCH (09:23)
[2023-06-22] MEDS: ONDANSETRON 4 MG/2 ML VIAL IVPUSH PRN (10:57)
[2023-06-22 11:43] LABS: POTASSIUM 4.8 mmol/L (3.5-5.1)
[2023-06-22 11:45] LABS: CALCIUM 9.4 mg/dL (8.5-10.1)
[2023-06-22 11:49] LABS: CREATININE 1.5 mg/dL (0.55-1.3)
[2023-06-22 15:53] VITALS: RESP 20
[2023-06-22 18:34] VITALS: BP 134/92; PULSE 87; TEMP 98.9
== END 2023-06-22 19:11 | disposition home or self-care (01) | DRG 204 ==
LOC: JER 20:28 → JERBED 06-15 00:59 → J4W 06-15 15:19
PROVIDERS: ADMIT Internal Medicine; ATTEND Family Medicine
DX: R55 Syncope and collapse (principal); I25.10 Atherosclerotic heart disease of native coronary artery without angina pectoris; E03.9 Hypothyroidism, unspecified; J44.9 Chronic obstructive pulmonary disease, unspecified; E11.43 Type 2 diabetes mellitus with diabetic autonomic (poly)neuropathy; K31.84 Gastroparesis; E11.22 Type 2 diabetes mellitus with diabetic chronic kidney disease; N17.9 Acute kidney failure, unspecified; D50.9 Iron deficiency anemia, unspecified; I13.0 Hypertensive heart and chronic kidney disease with heart failure and stage 1 through stage 4 chronic kidney disease, or unspecified chronic kidney disease; N18.9 Chronic kidney disease, unspecified; I50.9 Heart failure, unspecified; G43.909 Migraine, unspecified, not intractable, without status migrainosus; G47.33 Obstructive sleep apnea (adult) (pediatric); M06.9 Rheumatoid arthritis, unspecified; E86.0 Dehydration; K43.9 Ventral hernia without obstruction or gangrene; G25.81 Restless legs syndrome; S01.419A Laceration without foreign body of unspecified cheek and temporomandibular area, initial encounter; W18.30XA Fall on same level, unspecified, initial encounter; Y92.098 Other place in other non-institutional residence as the place of occurrence of the external cause; I25.2 Old myocardial infarction; E66.9 Obesity, unspecified; Z68.37 Body mass index [BMI] 37.0-37.9, adult; Z95.5 Presence of coronary angioplasty implant and graft
CPT/HCPCS: 0241U-QW; 36415; 70450-TC; 70490-TC; 71045-TC-FY; 72125-TC; 72128-TC; 73030-TC-RT-FY; 73070-TC-RT-FY; 74176-TC; 80048; 80053; 80061; 80307; 81003; 82550; 82553; 82728; 82962; 83036; 83540; 83550; 83735; 84100; 84443; 84484; 85025; 85027; 85610; 85730; 86431; 86850; 86900; 86901; 87086; 90677; 93005; 93010; 94640; 94660; 95816; 99285-25; J1756

== ENCOUNTER 2023-06-25 09:38 | Observation (INO) | payer OTHER ==
[2023-06-25] MEDS ORDERED: DEXTROSE 50%-WATER 25 GM/50 ML DISP.SYRIN ONE ×2 (09:58→10:00)
[2023-06-25] MEDS ORDERED: DEXTROSE 50%-WATER - 25 GM/50 ML VIAL IVPUSH ONE (10:00)
[2023-06-25] MEDS ORDERED: TETRACAINE 0.5% OPHTH SOLN 2 ML BOTTLE ONE (10:09)
[2023-06-25] MEDS ORDERED: TETRACAINE 0.5% HCL 0.6ML DROPPER.BOTTLE OS ONE (10:09)
[2023-06-25] MEDS ORDERED: ONDANSETRON 4 MG/2 ML VIAL IVPUSH ONE ×2 (10:21→19:15)
[2023-06-25] MEDS ORDERED: FLUORESCEIN NA 1 EA STRIP OS ONE (10:22)
[2023-06-25] MEDS ORDERED: ONDANSETRON 4 MG/2 ML VIAL ONE (10:23)
[2023-06-25] MEDS ORDERED: FLUORESCEIN NA 1 EA STRIP ONE (10:23)
[2023-06-25 11:10] LABS: HEMOGLOBIN 13.5 GM/dL (10.7-15.3); MCH 25.1 pg (25.7-33.7); MCHC 32.9 g/dl (32.0-36.0); MEAN CELL VOLUME 76.3 fl (80-96); MEAN PLT VOLUME 8.1 fl (7.5-11.1); PLATELET COUNT 456 10^3/uL (134-434); RBC 5.37 M/mm3 (3.60-5.2); RDW 17.2 % (11.6-15.6); WHITE BLOOD COUNT 21.1 K/mm3 (4.0-10.0)
[2023-06-25 11:11] LABS: VENOUS BASE EXCESS -0.8 mmol/L (-2-2); VENOUS O2 SATURATION 22.8 % (70-80); VENOUS PCO2 57.4 mmHg (38-52); VENOUS PH 7.294 (7.310-7.410)
[2023-06-25 11:28] LABS: POTASSIUM 4.8 mmol/L (3.5-5.1)
[2023-06-25 11:30] LABS: ALBUMIN 3.7 g/dl (3.4-5.0); BLOOD UREA NITROGEN 27.7 mg/dL (7-18); MAGNESIUM 2.1 mg/dL (1.8-2.4)
[2023-06-25 11:33] LABS: CREATININE 1.5 mg/dL (0.55-1.3)
[2023-06-25 11:35] LABS: BILIRUBIN,TOTAL 0.3 mg/dL (0.2-1); TOT PROT 7.8 g/dl (6.4-8.2)
[2023-06-25 11:43] LABS: ANISOCYTOSIS 0; MACROCYTOSIS 0
[2023-06-25 11:48] LABS: EPI CELLS >36 /uL (0-25.1); HYALINE CASTS 1 /uL (0-3.1); URINE APPEARANCE CLEAR; URINE BACTERIA 469 /uL (0-1359); URINE BILIRUBIN NEGATIVE (NEGATIVE); URINE COLOR YELLOW; URINE GLUCOSE (UA) 2+ (NEGATIVE); URINE KETONE NEGATIVE (NEGATIVE); URINE LEUK ESTERASE NEGATIVE (NEGATIVE); URINE NITRITE NEGATIVE (NEGATIVE); URINE PROTEIN 3+ (NEGATIVE); URINE RBC 10 /uL (0-23.9); URINE UROBILINOGEN 0.2 mg/dL (0.2-1.0); URINE WBC 30 /uL (0-25.8)
[2023-06-25] MEDS ORDERED: LACTATED RINGERS SOLUTION 1000 ML INFUS.BAG IV ONE (12:10)
[2023-06-25 12:13] LABS: LACTIC ACID 2.1 mmol/L (0.4-2.0)
[2023-06-25] MEDS ORDERED: ACETAMINOPHEN 325 MG TABLET (FP) PO ONE (19:28)
[2023-06-26] MEDS ORDERED: ACETAMINOPHEN 325 MG TABLET (FP) PO PRN (03:40)
[2023-06-26 09:30] LABS: BASO % 0.9 % (0-2.0); HEMATOCRIT 35.3 % (32.4-45.2); HEMOGLOBIN 11.5 GM/dL (10.7-15.3); LYMPH % 18.8 % (8-40); MCH 25.1 pg (25.7-33.7); MCHC 32.7 g/dl (32.0-36.0); MEAN CELL VOLUME 76.7 fl (80-96); MEAN PLT VOLUME 8.3 fl (7.5-11.1); MONO % 9.2 % (3.8-10.2); NEUT % 70.1 % (42.8-82.8); PLATELET COUNT 318 10^3/uL (134-434); RDW 17.8 % (11.6-15.6); WHITE BLOOD COUNT 10.7 K/mm3 (4.0-10.0)
[2023-06-26 09:47] LABS: POTASSIUM 4.3 mmol/L (3.5-5.1)
[2023-06-26 09:58] LABS: CALCIUM 8.9 mg/dL (8.5-10.1)
[2023-06-26 09:59] LABS: ALBUMIN 3.2 g/dl (3.4-5.0); BLOOD UREA NITROGEN 34.6 mg/dL (7-18)
[2023-06-26 10:03] LABS: BILIRUBIN,TOTAL 0.7 mg/dL (0.2-1); TOT PROT 6.6 g/dl (6.4-8.2)
[2023-06-26] MEDS: LACTATED RINGERS SOLUTION 1,000 ML/1,000 ML INFUS.BAG IV SCH (13:37)
[2023-06-26] MEDS ORDERED: VANCOMYCIN/WATER FOR INJ (PEG) 1,000 MG/200 ML BAG IVPB ONE (16:17)
[2023-06-26] MEDS: METOCLOPRAMIDE HCL 10 MG TABLET (FP) PO SCH (18:35)
[2023-06-26] MEDS: ATORVASTATIN CA 80 MG TABLET (FP) PO SCH (23:12)
[2023-06-27] MEDS: INSULIN SLIDING SCALE (NOVOLOG) 1 VIAL SQ SCH ×4 (07:09→21:53)
[2023-06-27] MEDS: LEVOTHYROXINE 150 MCG, LEVOTHYROXINE 25 MCG PO SCH (07:10)
[2023-06-27] MEDS: METOCLOPRAMIDE HCL 10 MG TABLET (FP) PO SCH ×3 (07:10→17:20)
[2023-06-27] MEDS ORDERED: LEVOTHYROXINE NA 150 MCG TABLET PO SCH (10:00)
[2023-06-27] MEDS: PANTOPRAZOLE 40 MG TABLET PO SCH (10:22)
[2023-06-27] MEDS: metoPROLOL SUCCINATE 25 MG TAB.SR.24H (FP) PO SCH (10:22)
[2023-06-27] MEDS: FUROSEMIDE 20 MG TABLET (FP) PO SCH (10:22)
[2023-06-27] MEDS: TAMSULOSIN HCL 0.4 MG CAP PO SCH (10:22)
[2023-06-27] MEDS: ASPIRIN COATED 81 MG TABLET.EC PO SCH (10:22)
[2023-06-27] MEDS: CLOPIDOGREL BISULFATE 75 MG TABLET (FP) PO SCH (10:22)
[2023-06-27] MEDS: SERTRALINE HCL 50 MG TABLET (FP) PO SCH (10:22)
[2023-06-27] MEDS ORDERED: AMYLASE PO SCH (12:00)
[2023-06-27] MEDS ORDERED: LIPASE/PROTEASE/AMYLASE 36,000 UNIT CAPSULE PO SCH (12:00)
[2023-06-27] MEDS ORDERED: LIPASE PO SCH (12:00)
[2023-06-27] MEDS ORDERED: PROTEASE PO SCH (12:00)
[2023-06-27] MEDS ORDERED: [UNRECOGNIZED DRUG - OTHER] PO SCH (12:00)
[2023-06-27] MEDS ORDERED: INSULIN (NOVOLOG) ASPART 100 UNITS/ML 10ML VIAL ONE (12:17)
[2023-06-27] MEDS: LIPASE/PROTEASE/AMYLASE 36,000 UNIT CAPSULE PO SCH ×2 (12:20→17:20)
[2023-06-27] MEDS: OFLOXACIN 0.3% OPHTHALMIC SOLUTION 5 ML BOTTLE OS SCH ×3 (14:19→22:22)
[2023-06-27] MEDS ORDERED: VANCOMYCIN/WATER FOR INJ (PEG) 1,000 MG/200 ML BAG IVPB ONE (16:24)
[2023-06-27] MEDS: LACTATED RINGERS SOLUTION 1,000 ML/1,000 ML INFUS.BAG IV SCH ×2 (17:22→22:06)
[2023-06-27] MEDS ORDERED: INSULIN (LEVEMIR) 100 UNITS/ML UNITS SQ SCH (22:00)
[2023-06-27] MEDS: ATORVASTATIN CA 80 MG TABLET (FP) PO SCH (22:04)
[2023-06-28 05:14] VITALS: RESP 18
[2023-06-28] MEDS: LEVOTHYROXINE 150 MCG, LEVOTHYROXINE 25 MCG PO SCH (06:10)
[2023-06-28] MEDS: METOCLOPRAMIDE HCL 10 MG TABLET (FP) PO SCH ×3 (06:10→17:02)
[2023-06-28] MEDS: OFLOXACIN 0.3% OPHTHALMIC SOLUTION 5 ML BOTTLE OS SCH ×5 (06:12→22:08)
[2023-06-28] MEDS: INSULIN SLIDING SCALE (NOVOLOG) 1 VIAL SQ SCH ×4 (06:21→22:05)
[2023-06-28] MEDS: LIPASE/PROTEASE/AMYLASE 36,000 UNIT CAPSULE PO SCH ×3 (08:49→17:04)
[2023-06-28] MEDS: TAMSULOSIN HCL 0.4 MG CAP PO SCH (08:49)
[2023-06-28] MEDS: CLOPIDOGREL BISULFATE 75 MG TABLET (FP) PO SCH (09:07)
[2023-06-28] MEDS: ASPIRIN COATED 81 MG TABLET.EC PO SCH (09:07)
[2023-06-28] MEDS: FUROSEMIDE 20 MG TABLET (FP) PO SCH (09:07)
[2023-06-28] MEDS: SERTRALINE HCL 50 MG TABLET (FP) PO SCH (09:07)
[2023-06-28] MEDS: metoPROLOL SUCCINATE 25 MG TAB.SR.24H (FP) PO SCH (09:07)
[2023-06-28] MEDS: PANTOPRAZOLE 40 MG TABLET PO SCH (09:07)
[2023-06-28 10:21] LABS: HEMATOCRIT 34.8 % (32.4-45.2); HEMOGLOBIN 11.4 GM/dL (10.7-15.3); MCH 25.3 pg (25.7-33.7); MCHC 32.9 g/dl (32.0-36.0); MEAN CELL VOLUME 77.1 fl (80-96); MEAN PLT VOLUME 8.1 fl (7.5-11.1); PLATELET COUNT 314 10^3/uL (134-434); RBC 4.51 M/mm3 (3.60-5.2); RDW 17.5 % (11.6-15.6)
[2023-06-28 10:34] LABS: POTASSIUM 4.6 mmol/L (3.5-5.1)
[2023-06-28 10:42] LABS: ALBUMIN 3.4 g/dl (3.4-5.0); BLOOD UREA NITROGEN 24.4 mg/dL (7-18); CALCIUM 9.3 mg/dL (8.5-10.1)
[2023-06-28 10:45] LABS: CREATININE 1.6 mg/dL (0.55-1.3)
[2023-06-28 10:46] LABS: TOT PROT 7.2 g/dl (6.4-8.2)
[2023-06-28 10:47] LABS: BILIRUBIN,TOTAL 0.5 mg/dL (0.2-1)
[2023-06-28] MEDS ORDERED: INSULIN (NOVOLOG) ASPART 100 UNITS/ML 10ML VIAL ONE ×2 (11:46→21:41)
[2023-06-28] MEDS: LACTATED RINGERS SOLUTION 1,000 ML/1,000 ML INFUS.BAG IV SCH (17:02)
[2023-06-28] MEDS ORDERED: INSULIN (LEVEMIR) 100 UNITS/ML UNITS SQ SCH (22:00)
[2023-06-28] MEDS: ATORVASTATIN CA 80 MG TABLET (FP) PO SCH (22:01)
[2023-06-29] MEDS: METOCLOPRAMIDE HCL 10 MG TABLET (FP) PO SCH ×3 (06:40→17:06)
[2023-06-29] MEDS: LEVOTHYROXINE 150 MCG, LEVOTHYROXINE 25 MCG PO SCH (06:41)
[2023-06-29] MEDS: OFLOXACIN 0.3% OPHTHALMIC SOLUTION 5 ML BOTTLE OS SCH ×5 (06:42→21:36)
[2023-06-29] MEDS: INSULIN SLIDING SCALE (NOVOLOG) 1 VIAL SQ SCH ×4 (06:42→21:39)
[2023-06-29] MEDS: LIPASE/PROTEASE/AMYLASE 36,000 UNIT CAPSULE PO SCH ×3 (08:32→17:45)
[2023-06-29] MEDS: TAMSULOSIN HCL 0.4 MG CAP PO SCH (08:40)
[2023-06-29] MEDS: CLOPIDOGREL BISULFATE 75 MG TABLET (FP) PO SCH (09:15)
[2023-06-29] MEDS: metoPROLOL SUCCINATE 25 MG TAB.SR.24H (FP) PO SCH (09:15)
[2023-06-29] MEDS: FUROSEMIDE 20 MG TABLET (FP) PO SCH (09:15)
[2023-06-29] MEDS: SERTRALINE HCL 50 MG TABLET (FP) PO SCH (09:15)
[2023-06-29] MEDS: PANTOPRAZOLE 40 MG TABLET PO SCH (09:15)
[2023-06-29] MEDS: ASPIRIN COATED 81 MG TABLET.EC PO SCH (09:47)
[2023-06-29] MEDS: POLYETHYLENE GLYCOL (HEALTHYLAX) 3350 17 GM PACKET PO SCH ×2 (09:47→21:35)
[2023-06-29] MEDS ORDERED: INSULIN (NOVOLOG) ASPART 100 UNITS/ML 10ML VIAL ONE ×2 (11:04→21:11)
[2023-06-29] MEDS: ATORVASTATIN CA 80 MG TABLET (FP) PO SCH (21:35)
[2023-06-29] MEDS ORDERED: INSULIN (LEVEMIR) 100 UNITS/ML UNITS SQ SCH (22:00)
[2023-06-30] MEDS: METOCLOPRAMIDE HCL 10 MG TABLET (FP) PO SCH ×2 (06:36→10:18)
[2023-06-30] MEDS: LEVOTHYROXINE 150 MCG, LEVOTHYROXINE 25 MCG PO SCH (06:37)
[2023-06-30] MEDS: INSULIN SLIDING SCALE (NOVOLOG) 1 VIAL SQ SCH ×2 (06:40→11:17)
[2023-06-30] MEDS: OFLOXACIN 0.3% OPHTHALMIC SOLUTION 5 ML BOTTLE OS SCH ×2 (06:40→11:12)
[2023-06-30] MEDS: LIPASE/PROTEASE/AMYLASE 36,000 UNIT CAPSULE PO SCH (08:43)
[2023-06-30] MEDS: TAMSULOSIN HCL 0.4 MG CAP PO SCH (08:43)
[2023-06-30 09:27] VITALS: BP 126/71; PULSE 80; TEMP 98
[2023-06-30] MEDS: SERTRALINE HCL 50 MG TABLET (FP) PO SCH (10:06)
[2023-06-30] MEDS: PANTOPRAZOLE 40 MG TABLET PO SCH (10:06)
[2023-06-30] MEDS: FUROSEMIDE 20 MG TABLET (FP) PO SCH (10:06)
[2023-06-30] MEDS: CLOPIDOGREL BISULFATE 75 MG TABLET (FP) PO SCH (10:06)
[2023-06-30] MEDS: POLYETHYLENE GLYCOL (HEALTHYLAX) 3350 17 GM PACKET PO SCH (10:06)
[2023-06-30] MEDS: metoPROLOL SUCCINATE 25 MG TAB.SR.24H (FP) PO SCH ×2 (10:06→10:14)
[2023-06-30] MEDS ORDERED: INSULIN (NOVOLOG) ASPART 100 UNITS/ML 10ML VIAL ONE (11:15)
== END 2023-06-30 13:15 | disposition home or self-care (01) ==
LOC: JER 09:38 → JERBED 13:36 → J6S 15:57
PROVIDERS: ADMIT Internal Medicine; ATTEND Internal Medicine
PROC: 3E0337Z Introduction of Electrolytic and Water Balance Substance into Peripheral Vein, Percutaneous Approach (ICD-10-PCS; principal; 2023-06-25)
PROC: 3E033GC Introduction of Other Therapeutic Substance into Peripheral Vein, Percutaneous Approach (ICD-10-PCS; 2023-06-25)
PROC: 3E013VG Introduction of Insulin into Subcutaneous Tissue, Percutaneous Approach (ICD-10-PCS; 2023-06-25)
PROC: 3E03329 Introduction of Other Anti-infective into Peripheral Vein, Percutaneous Approach (ICD-10-PCS; 2023-06-25)
DX: E11.649 Type 2 diabetes mellitus with hypoglycemia without coma (principal); R56.9 Unspecified convulsions; D72.829 Elevated white blood cell count, unspecified; R11.2 Nausea with vomiting, unspecified; R55 Syncope and collapse; E03.9 Hypothyroidism, unspecified; I11.0 Hypertensive heart disease with heart failure; M06.9 Rheumatoid arthritis, unspecified; N17.9 Acute kidney failure, unspecified; E78.5 Hyperlipidemia, unspecified; I25.10 Atherosclerotic heart disease of native coronary artery without angina pectoris; I25.2 Old myocardial infarction; Z95.5 Presence of coronary angioplasty implant and graft; G89.29 Other chronic pain; N28.9 Disorder of kidney and ureter, unspecified; N28.1 Cyst of kidney, acquired; K80.20 Calculus of gallbladder without cholecystitis without obstruction; R79.89 Other specified abnormal findings of blood chemistry; Z87.891 Personal history of nicotine dependence; J45.909 Unspecified asthma, uncomplicated; G47.30 Sleep apnea, unspecified; K43.9 Ventral hernia without obstruction or gangrene; R14.0 Abdominal distension (gaseous); Z79.4 Long term (current) use of insulin; Z96.41 Presence of insulin pump (external) (internal); R63.5 Abnormal weight gain; M62.81 Muscle weakness (generalized); Z88.8 Allergy status to other drugs, medicaments and biological substances; Z88.0 Allergy status to penicillin
CPT/HCPCS: 36415; 70450-TC; 70486-TC; 70551-TC; 71045-TC-FY; 71250-TC; 74176-TC; 80053; 81003; 82803; 82962; 83605; 83735; 84439; 84443; 84484; 85025; 85027; 87040; 87086; 93005; 93010; 96361; 96365; 96366; 96372; 96375; 96376; 99285-25; G0378; G0480

== ENCOUNTER 2023-09-23 13:31 | Emergency (ER) | payer OTHER ==
[2023-09-23 13:44] VITALS: RESP 18; BMI 34.9
[2023-09-23] MEDS ORDERED: METOCLOPRAMIDE HCL INJECTION 10 MG/2 ML VIAL IVPUSH ONE (14:25)
[2023-09-23] MEDS ORDERED: METOCLOPRAMIDE HCL INJECTION 10 MG/2 ML VIAL ONE (15:07)
[2023-09-23 15:15] LABS: VENOUS BASE EXCESS -4.2 mmol/L (-2-2); VENOUS O2 SATURATION 60.5 % (70-80); VENOUS PCO2 38.3 mmHg (38-52); VENOUS PH 7.354 (7.310-7.410)
[2023-09-23 15:18] LABS: BASO % 1.3 % (0-2.0); EOS % 0.4 % (0-4.5); HEMATOCRIT 39.7 % (32.4-45.2); HEMOGLOBIN 13.1 GM/dL (10.7-15.3); LYMPH % 12.9 % (8-40); MCH 25.7 pg (25.7-33.7); MCHC 33.1 g/dl (32.0-36.0); MEAN CELL VOLUME 77.6 fl (80-96); MEAN PLT VOLUME 7.4 fl (7.5-11.1); NEUT % 78.4 % (42.8-82.8); PLATELET COUNT 426 10^3/uL (134-434); RBC 5.12 M/mm3 (3.60-5.2); RDW 16.5 % (11.6-15.6); WHITE BLOOD COUNT 15.1 K/mm3 (4.0-10.0)
[2023-09-23 15:35] LABS: CHLORIDE 98 mmol/L (98-107); SODIUM 130 mmol/L (136-145)
[2023-09-23 15:38] LABS: CALCIUM 9.6 mg/dL (8.5-10.1); LIPASE 77 U/L (73-393); MAGNESIUM 2.1 mg/dL (1.8-2.4)
[2023-09-23 15:39] LABS: ALBUMIN 3.9 g/dl (3.4-5.0); CO2 21 mmol/L (21-32); GLUCOSE,RANDOM 244 mg/dL (74-106)
[2023-09-23 15:41] LABS: CREATININE 1.8 mg/dL (0.55-1.3); SGOT/AST 53 U/L (15-37); SGPT/ALT 38 U/L (13-61)
[2023-09-23 15:42] LABS: PHOSPHOROUS 2.8 mg/dL (2.5-4.9); TOT PROT 8.6 g/dl (6.4-8.2)
[2023-09-23 15:44] LABS: ALK PHOS 123 U/L (45-117); ANION GAP 11 mmol/L (4-13); BILIRUBIN,TOTAL 0.8 mg/dL (0.2-1); POTASSIUM 6.4 mmol/L (3.5-5.1)
[2023-09-23] MEDS ORDERED: SODIUM CHLORIDE 500 ML IV STA (16:01)
[2023-09-23] MEDS ORDERED: ACETAMINOPHEN 1000 MG/100 ML BAG IVPB ONE (16:01)
[2023-09-23] MEDS ORDERED: ACETAMINOPHEN INJECTION 100 ML IVPB ONE (16:13)
[2023-09-23] MEDS ORDERED: ONDANSETRON 4 MG/2 ML VIAL IVPUSH ONE (16:25)
[2023-09-23] MEDS ORDERED: FAMOTIDINE 20 MG/50 ML IVPB 20 MG/50 ML MG IVPB ONE ×2 (16:25→17:27)
[2023-09-23] MEDS ORDERED: HALOPERIDOL DECANOATE 500 MG/5ML MDV IM ONE (16:36)
[2023-09-23 16:57] LABS: POTASSIUM 4.5 mmol/L (3.5-5.1)
[2023-09-23 16:59] LABS: ALBUMIN 3.7 g/dl (3.4-5.0); BLOOD UREA NITROGEN 32.5 mg/dL (7-18); CALCIUM 9.2 mg/dL (8.5-10.1)
[2023-09-23 17:03] VITALS: BP 175/86; PULSE 99; TEMP 98.5
[2023-09-23 17:03] LABS: CREATININE 1.7 mg/dL (0.55-1.3)
[2023-09-23 17:04] LABS: BILIRUBIN,TOTAL 0.5 mg/dL (0.2-1); TOT PROT 7.8 g/dl (6.4-8.2)
[2023-09-23] MEDS ORDERED: HALOPERIDOL LACTATE 5 MG/ML ONE (17:27)
[2023-09-23] MEDS ORDERED: INSULIN (NOVOLOG MIX 70/30) 100 UNITS/ML MDV SQ ONE ×2 (19:43→20:21)
[2023-09-23 19:53] LABS: BASO % 0.4 % (0-2.0); EOS % 0.1 % (0-4.5); HEMATOCRIT 34.9 % (32.4-45.2); HEMOGLOBIN 11.6 GM/dL (10.7-15.3); LYMPH % 17.8 % (8-40); MCH 25.9 pg (25.7-33.7); MCHC 33.3 g/dl (32.0-36.0); MEAN CELL VOLUME 77.8 fl (80-96); MONO % 6.9 % (3.8-10.2); NEUT % 74.8 % (42.8-82.8); PLATELET COUNT 342 10^3/uL (134-434); RBC 4.49 M/mm3 (3.60-5.2); RDW 16.3 % (11.6-15.6); WHITE BLOOD COUNT 12.6 K/mm3 (4.0-10.0)
== END 2023-09-23 21:12 | disposition home or self-care (01) ==
LOC: JER 13:31
PROC: 3E033GC Introduction of Other Therapeutic Substance into Peripheral Vein, Percutaneous Approach (ICD-10-PCS; principal; 2023-09-23)
PROC: 3E033NZ Introduction of Analgesics, Hypnotics, Sedatives into Peripheral Vein, Percutaneous Approach (ICD-10-PCS; 2023-09-23)
PROC: 3E033GC Introduction of Other Therapeutic Substance into Peripheral Vein, Percutaneous Approach (ICD-10-PCS; 2023-09-23)
PROC: 3E013VG Introduction of Insulin into Subcutaneous Tissue, Percutaneous Approach (ICD-10-PCS; 2023-09-23)
PROC: 3E023GC Introduction of Other Therapeutic Substance into Muscle, Percutaneous Approach (ICD-10-PCS; 2023-09-23)
DX: R42 Dizziness and giddiness (principal); R11.2 Nausea with vomiting, unspecified; R61 Generalized hyperhidrosis; R10.84 Generalized abdominal pain
CPT/HCPCS: 36415; 80053; 82010; 82803; 83605; 83690; 83735; 84100; 84484; 85025; 93005; 93010; 99284-25

== ENCOUNTER 2023-10-14 18:15 | Emergency (ER) | payer OTHER ==
[2023-10-14 18:43] VITALS: BP 128/83; PULSE 75; RESP 18; TEMP 97.7; BMI 29.1
[2023-10-14] MEDS ORDERED: KETOROLAC TROMETHAMINE 30 MG/1 ML VIAL IM ONE (19:24)
[2023-10-14] MEDS ORDERED: KETOROLAC TROMETHAMINE 30 MG/1 ML VIAL ONE (19:30)
[2023-10-14] MEDS ORDERED: diphenhydrAMINE HCL 25 MG CAPSULE (FP) PO ONE ×2 (20:07→20:10)
== END 2023-10-14 20:17 | disposition home or self-care (01) ==
LOC: JER 18:15 → JERFT 18:15
PROC: 3E023NZ Introduction of Analgesics, Hypnotics, Sedatives into Muscle, Percutaneous Approach (ICD-10-PCS; principal; 2023-10-14)
DX: R09.82 Postnasal drip (principal); B34.9 Viral infection, unspecified; R09.81 Nasal congestion; R09.89 Other specified symptoms and signs involving the circulatory and respiratory systems; R05.9 Cough, unspecified; M79.10 Myalgia, unspecified site; Z20.822 Contact with and (suspected) exposure to COVID-19
CPT/HCPCS: 0241U-QW; 87651; 99284-25

== ENCOUNTER 2023-12-26 11:24 | Inpatient (IN) | payer OTHER ==
[2023-12-26] MEDS ORDERED: METOCLOPRAMIDE HCL INJECTION 10 MG/2 ML VIAL ONE (12:16)
[2023-12-26] MEDS: SODIUM CHLORIDE 0.9% 500 ML INFUS.BAG IV ONE (12:26)
[2023-12-26] MEDS: METOCLOPRAMIDE HCL INJECTION 10 MG/2 ML VIAL IVPUSH ONE (12:26)
[2023-12-26] MEDS ORDERED: ACETAMINOPHEN INJECTION 100 ML IVPB ONE (12:44)
[2023-12-26 12:48] LABS: BASO % 0.6 % (0-2.0); EOS % 2.5 % (0-4.5); HEMATOCRIT 36.7 % (32.4-45.2); HEMOGLOBIN 11.9 GM/dL (10.7-15.3); LYMPH % 15.8 % (8-40); MCH 26.3 pg (25.7-33.7); MCHC 32.5 g/dl (32.0-36.0); MEAN CELL VOLUME 80.9 fl (80-96); MEAN PLT VOLUME 7.7 fl (7.5-11.1); MONO % 6.2 % (3.8-10.2); NEUT % 74.9 % (42.8-82.8); PLATELET COUNT 336 10^3/uL (134-434); RBC 4.53 M/mm3 (3.60-5.2); WHITE BLOOD COUNT 10.8 K/mm3 (4.0-10.0)
[2023-12-26] MEDS: ACETAMINOPHEN 1000 MG/100 ML BAG IVPB ONE (12:48)
[2023-12-26 12:51] LABS: INR 1.17 (0.83-1.09); PROTHROMBIN TIME (PATIENT) 13.5 SEC (9.7-13.0)
[2023-12-26 12:53] LABS: ACTIVATED PTT 34.8 SECONDS (25.2-36.5)
[2023-12-26 13:01] LABS: POTASSIUM 3.7 mmol/L (3.5-5.1)
[2023-12-26 13:04] LABS: ALBUMIN 3.5 g/dl (3.4-5.0)
[2023-12-26 13:05] LABS: BLOOD UREA NITROGEN 20.7 mg/dL (7-18)
[2023-12-26 13:06] LABS: PHOSPHOROUS 2.2 mg/dL (2.5-4.9)
[2023-12-26 13:07] LABS: CREATININE 1.4 mg/dL (0.55-1.3)
[2023-12-26 13:09] LABS: TOT PROT 7.6 g/dl (6.4-8.2)
[2023-12-26 13:10] LABS: BILIRUBIN,TOTAL 0.5 mg/dL (0.2-1)
[2023-12-26] MEDS ORDERED: ONDANSETRON 4 MG/2 ML VIAL ONE (14:37)
[2023-12-26] MEDS: ONDANSETRON 4 MG/2 ML VIAL IVPUSH ONE (14:44)
[2023-12-26] MEDS: LACTATED RINGERS SOLUTION 1000 ML INFUS.BAG IV ONE (14:44)
[2023-12-26 14:50] LABS: EPI CELLS 7 /uL (0-25.1); HYALINE CASTS 0 /uL (0-3.1); PH,URINE 7.5 (5.0-8.0); URINE APPEARANCE CLEAR; URINE BACTERIA 44 /uL (0-1359); URINE BILIRUBIN NEGATIVE (NEGATIVE); URINE COLOR YELLOW; URINE GLUCOSE (UA) 3+ (NEGATIVE); URINE KETONE TRACE (NEGATIVE); URINE LEUK ESTERASE NEGATIVE (NEGATIVE); URINE NITRITE NEGATIVE (NEGATIVE); URINE PROTEIN 2+ (NEGATIVE); URINE RBC 12 /uL (0-23.9); URINE UROBILINOGEN 0.2 mg/dL (0.2-1.0); URINE WBC 8 /uL (0-25.8)
[2023-12-26] MEDS ORDERED: ONDANSETRON 4 MG/2 ML VIAL IVPUSH PRN (18:01)
[2023-12-26] MEDS ORDERED: hydrALAZINE HCL 20 MG/ML VIAL IVPUSH PRN (18:03)
[2023-12-26] MEDS: hydrALAZINE HCL 20 MG/ML VIAL IVPUSH ONE (18:07)
[2023-12-26 18:24] VITALS: BMI 36.2
[2023-12-26] MEDS: HYDROmorphone HCl 2 MG/ML VIAL IVPB ONE (18:44)
[2023-12-26] MEDS: D5-1/2NS+20 MEQ KCL - 20 MEQ/1,000 ML INFUS.BAG IV SCH (18:46)
[2023-12-26] MEDS: ATORVASTATIN CA 80 MG TABLET (FP) PO SCH (21:53)
[2023-12-26] MEDS: HEPARIN NA (PORCINE) 5,000 UNITS/ML 1ML VIAL SQ SCH (21:53)
[2023-12-26] MEDS: PANTOPRAZOLE SODIUM 40 MG VIAL IVPUSH SCH (21:53)
[2023-12-26] MEDS: METOCLOPRAMIDE HCL INJECTION 10 MG/2 ML VIAL IVPUSH PRN (22:24)
[2023-12-27] MEDS: LEVOTHYROXINE 100 MCG, LEVOTHYROXINE 75 MCG PO SCH (06:07)
[2023-12-27 06:44] LABS: BASO % 0.5 % (0-2.0); EOS % 0.2 % (0-4.5); HEMOGLOBIN 10.7 GM/dL (10.7-15.3); LYMPH % 15.6 % (8-40); MCH 26.5 pg (25.7-33.7); MCHC 32.5 g/dl (32.0-36.0); MEAN CELL VOLUME 81.4 fl (80-96); MEAN PLT VOLUME 7.8 fl (7.5-11.1); MONO % 8.3 % (3.8-10.2); NEUT % 75.4 % (42.8-82.8); PLATELET COUNT 312 10^3/uL (134-434); RBC 4.06 M/mm3 (3.60-5.2); RDW 15.1 % (11.6-15.6); WHITE BLOOD COUNT 10.9 K/mm3 (4.0-10.0)
[2023-12-27 07:27] LABS: POTASSIUM 4.7 mmol/L (3.5-5.1)
[2023-12-27 07:34] LABS: BLOOD UREA NITROGEN 21.5 mg/dL (7-18); CALCIUM 9.8 mg/dL (8.5-10.1)
[2023-12-27 07:35] LABS: MAGNESIUM 1.9 mg/dL (1.8-2.4)
[2023-12-27 07:37] LABS: BILIRUBIN,TOTAL 0.4 mg/dL (0.2-1); CREATININE 1.5 mg/dL (0.55-1.3); TOT PROT 6.6 g/dl (6.4-8.2)
[2023-12-27] MEDS: SERTRALINE HCL 50 MG TABLET (FP) PO SCH (09:20)
[2023-12-27] MEDS: CLOPIDOGREL BISULFATE 75 MG TABLET (FP) PO SCH (09:21)
[2023-12-27] MEDS: metoPROLOL SUCCINATE 25 MG TAB.SR.24H (FP) PO SCH (09:21)
[2023-12-27] MEDS: ASPIRIN COATED 81 MG TABLET.EC PO SCH (09:21)
[2023-12-27] MEDS ORDERED: LEVOTHYROXINE NA 150 MCG TABLET PO SCH (10:00)
[2023-12-27] MEDS ORDERED: RIFAXIMIN 550 MG TABLET PO SCH (10:30)
[2023-12-27] MEDS: LIPASE/PROTEASE/AMYLASE 36,000 UNIT CAPSULE PO SCH (11:59)
[2023-12-27] MEDS: D5-1/2NS+20 MEQ KCL - 20 MEQ/1,000 ML INFUS.BAG IV SCH (12:12)
[2023-12-27] MEDS: RIFAXIMIN 550 MG TABLET PO SCH (13:58)
[2023-12-27] MEDS: NORTRIPTYLINE HCL 25 MG CAPSULE PO SCH (21:27)
[2023-12-27] MEDS ORDERED: INSULIN (NOVOLOG) ASPART 100 UNITS/ML 10ML VIAL ONE (21:37)
[2023-12-27] MEDS: INSULIN ASPART SLIDING SCALE (NOVOLOG) 1 VIAL SQ SCH (21:37)
[2023-12-28 06:37] LABS: POTASSIUM 4.6 mmol/L (3.5-5.1)
[2023-12-28 06:39] LABS: BLOOD UREA NITROGEN 18.9 mg/dL (7-18); CALCIUM 8.9 mg/dL (8.5-10.1)
[2023-12-28 06:42] LABS: CREATININE 1.5 mg/dL (0.55-1.3)
[2023-12-28 06:44] LABS: BILIRUBIN,TOTAL 0.4 mg/dL (0.2-1); TOT PROT 6.5 g/dl (6.4-8.2)
[2023-12-28] MEDS: INSULIN (LEVEMIR) 100 UNITS/ML UNITS SQ SCH (06:48)
[2023-12-28] MEDS ORDERED: INSULIN (NOVOLOG) ASPART 100 UNITS/ML 10ML VIAL ONE ×3 (07:16→17:40)
[2023-12-28 08:06] LABS: BASO % 0.9 % (0-2.0); EOS % 3.4 % (0-4.5); HEMATOCRIT 32.6 % (32.4-45.2); HEMOGLOBIN 11.1 GM/dL (10.7-15.3); LYMPH % 22.4 % (8-40); MCH 27.4 pg (25.7-33.7); MCHC 34.2 g/dl (32.0-36.0); MEAN CELL VOLUME 80.2 fl (80-96); MEAN PLT VOLUME 8.1 fl (7.5-11.1); MONO % 8.3 % (3.8-10.2); PLATELET COUNT 332 10^3/uL (134-434); RBC 4.06 M/mm3 (3.60-5.2); RDW 15.4 % (11.6-15.6); WHITE BLOOD COUNT 8.9 K/mm3 (4.0-10.0)
[2023-12-28] MEDS: PANTOPRAZOLE 40 MG TABLET PO SCH (09:07)
[2023-12-28] MEDS ORDERED: methylPREDNISolone NA SUCC 40 MG/1 ML VIAL IVPUSH ONE (10:00)
[2023-12-28] MEDS ORDERED: diphenhydrAMINE HCL 25 MG CAPSULE (FP) PO ONE (10:00)
[2023-12-28] MEDS: methylPREDNISolone NA SUCC 40 MG/1 ML VIAL IVPUSH ONE (14:22)
[2023-12-28] MEDS: diphenhydrAMINE HCL 25 MG CAPSULE (FP) PO ONE (14:22)
[2023-12-29] MEDS ORDERED: INSULIN (NOVOLOG) ASPART 100 UNITS/ML 10ML VIAL ONE (06:24)
[2023-12-29 15:41] VITALS: RESP 18
[2023-12-29 18:39] VITALS: BP 139/75; PULSE 88; TEMP 99.1
== END 2023-12-29 20:00 | disposition home or self-care (01) | DRG 48 ==
LOC: JER 11:24 → JERBED 14:08 → J4W 17:58 → OBSVTOIN 17:59
PROVIDERS: ADMIT Internal Medicine; ATTEND Internal Medicine
DX: E11.43 Type 2 diabetes mellitus with diabetic autonomic (poly)neuropathy (principal); I13.0 Hypertensive heart and chronic kidney disease with heart failure and stage 1 through stage 4 chronic kidney disease, or unspecified chronic kidney disease; E03.9 Hypothyroidism, unspecified; E78.5 Hyperlipidemia, unspecified; G44.229 Chronic tension-type headache, not intractable; K31.84 Gastroparesis; G47.33 Obstructive sleep apnea (adult) (pediatric); I25.10 Atherosclerotic heart disease of native coronary artery without angina pectoris; J44.9 Chronic obstructive pulmonary disease, unspecified; N18.9 Chronic kidney disease, unspecified; R10.84 Generalized abdominal pain; E11.40 Type 2 diabetes mellitus with diabetic neuropathy, unspecified
CPT/HCPCS: 0241U-QW; 36415; 70450-TC; 70551-TC; 71045-TC-FY; 74177-TC; 76700-TC; 80053; 80061; 81003; 82010; 82550; 82962; 83036; 83690; 83735; 84100; 84443; 84484; 84703; 85025; 85610; 85730; 86850; 86900; 86901; 93005; 93010; 99285-25; G0378; J0131; J1644

== ENCOUNTER 2024-01-29 04:16 | Day surgery (SDC) | payer OTHER ==
[2024-01-24 13:19] VITALS: BMI 37.8
[2024-01-29] MEDS ORDERED: PROPOFOL 20 ML ONE (07:09)
[2024-01-29] MEDS ORDERED: FENTANYL CITRATE/PF 50 MCG/ML VIAL ONE ×3 (07:09→09:02)
[2024-01-29] MEDS ORDERED: MIDAZOLAM HCL 2 MG/2 ML SINGLE DOSE VIAL ONE (07:09)
[2024-01-29] MEDS ORDERED: LIDOCAINE HCL/PF 2% SDV 5ML VIAL ONE (07:09)
[2024-01-29] MEDS ORDERED: IBUPROFEN 400 MG TABLET (FP) PO PRN (07:41)
[2024-01-29] MEDS ORDERED: ACETAMINOPHEN 325 MG TABLET (FP) PO PRN (07:41)
[2024-01-29] MEDS ORDERED: oxyCODONE HCL 5 MG TABLET PO PRN ×2 (07:41→08:37)
[2024-01-29] MEDS ORDERED: DEXAMETHASONE SOD PHOSPHATE 4 MG/1 ML VIAL ONE (07:56)
[2024-01-29] MEDS ORDERED: ceFAZolin SODIUM 1 GM VIAL ONE (07:57)
[2024-01-29] MEDS ORDERED: ONDANSETRON 4 MG/2 ML VIAL ONE ×2 (08:19→08:49)
[2024-01-29] MEDS ORDERED: KETOROLAC TROMETHAMINE 30 MG/1 ML VIAL ONE (08:19)
[2024-01-29] MEDS ORDERED: PROMETHAZINE HCL 25 MG/1 ML VIAL IVPB PRN (08:37)
[2024-01-29] MEDS ORDERED: ACETAMINOPHEN INJECTION 100 ML IVPB ONE (08:44)
[2024-01-29] MEDS ORDERED: LACTATED RINGERS SOLUTION 1,000 ML IV SCH (08:45)
[2024-01-29] MEDS: ACETAMINOPHEN 1000 MG/100 ML BAG IVPB ONE (08:50)
[2024-01-29] MEDS: ONDANSETRON 4 MG/2 ML VIAL IVPUSH PRN (08:50)
[2024-01-29 12:55] VITALS: BP 123/55; PULSE 89; RESP 18; TEMP 98.8
== END 2024-01-29 10:46 | disposition home or self-care (01) ==
LOC: JASU-SURG 04:16
PROVIDERS: ATTEND Obstetrics & Gynecology
PROC: 0UB98ZZ Excision of Uterus, Via Natural or Artificial Opening Endoscopic (ICD-10-PCS; principal; 2024-01-29 07:30)
DX: D25.0 Submucous leiomyoma of uterus (principal); N72 Inflammatory disease of cervix uteri
CPT/HCPCS: 82962; 88305-TC; 88341-TC; 88342-TC; 94760; J0131

== ENCOUNTER 2024-06-08 16:20 | Observation (INO) | payer OTHER ==
[2024-06-08] MEDS ORDERED: ONDANSETRON 4 MG/2 ML VIAL ONE (17:34)
[2024-06-08] MEDS ORDERED: ACETAMINOPHEN INJECTION 100 ML IVPB ONE (17:34)
[2024-06-08 17:35] LABS: BASO % 1.2 % (0-2.0); EOS % 0.5 % (0-4.5); HEMATOCRIT 40.5 % (32.4-45.2); HEMOGLOBIN 13.5 GM/dL (10.7-15.3); LYMPH % 13.1 % (8-40); MCH 24.6 pg (25.7-33.7); MCHC 33.4 g/dl (32.0-36.0); MEAN CELL VOLUME 73.8 fl (80-96); MEAN PLT VOLUME 6.9 fl (7.5-11.1); NEUT % 79.2 % (42.8-82.8); PLATELET COUNT 401 10^3/uL (134-434); RBC 5.49 M/mm3 (3.60-5.2); RDW 18.4 % (11.6-15.6)
[2024-06-08] MEDS: LACTATED RINGERS SOLUTION 1000 ML INFUS.BAG IV ONE (17:44)
[2024-06-08] MEDS: ACETAMINOPHEN 1000 MG/100 ML BAG IVPB ONE (17:45)
[2024-06-08] MEDS: ONDANSETRON 4 MG/2 ML VIAL IVPUSH ONE (17:45)
[2024-06-08 17:58] LABS: POTASSIUM 3.7 mmol/L (3.5-5.1)
[2024-06-08 18:00] LABS: ALBUMIN 4.2 g/dl (3.4-5.0); BLOOD UREA NITROGEN 29.7 mg/dL (7-18); CALCIUM 10.1 mg/dL (8.5-10.1); MAGNESIUM 1.9 mg/dL (1.8-2.4)
[2024-06-08 18:04] LABS: CREATININE 1.8 mg/dL (0.55-1.3)
[2024-06-08 18:05] LABS: BILIRUBIN,TOTAL 0.7 mg/dL (0.2-1); TOT PROT 8.7 g/dl (6.4-8.2)
[2024-06-08] MEDS ORDERED: HALOPERIDOL LACTATE 5 MG/ML ONE (19:13)
[2024-06-08] MEDS: HALOPERIDOL LACTATE 5 MG/ML IM ONE (19:16)
[2024-06-08] MEDS: morphine CARPU-JECT 2 MG/1 ML DISP.SYRIN IVPUSH ONE (19:45)
[2024-06-08] MEDS: METOPROLOL TARTRATE 50 MG TABLET (FP) PO ONE (19:45)
[2024-06-08] MEDS ORDERED: FAMOTIDINE 20 MG/50 ML IVPB 20 MG/50 ML MG IVPB ONE (19:46)
[2024-06-08] MEDS ORDERED: METOPROLOL TARTRATE 50 MG TABLET (FP) ONE (19:46)
[2024-06-08] MEDS ORDERED: MORPHINE SULFATE 2 MG/ML SYRINGE ONE (19:46)
[2024-06-08] MEDS: FAMOTIDINE 20 MG/50 ML IVPB 20 MG/50 ML MG IVPB ONE (19:50)
[2024-06-08] MEDS: DEXTROSE 5%-0.45% SALINE 1,000 ML IV SCH (22:32)
[2024-06-09 01:44] VITALS: BMI 34.4
[2024-06-09] MEDS: LEVOTHYROXINE NA 100 MCG TABLET (FP) PO SCH (08:56)
[2024-06-09] MEDS: BISACODYL 5 MG TABLET.DR (FP) PO PRN (10:25)
[2024-06-09] MEDS: SERTRALINE HCL 50 MG TABLET (FP) PO SCH (10:25)
[2024-06-09 12:19] LABS: URINE APPEARANCE CLEAR; URINE BILIRUBIN NEGATIVE (NEGATIVE); URINE COLOR YELLOW; URINE GLUCOSE (UA) NEGATIVE (NEGATIVE); URINE KETONE NEGATIVE (NEGATIVE); URINE LEUK ESTERASE TRACE (NEGATIVE); URINE NITRITE NEGATIVE (NEGATIVE); URINE PROTEIN 1+ (NEGATIVE); URINE UROBILINOGEN 0.2 mg/dL (0.2-1.0)
[2024-06-09 12:22] LABS: EPI CELLS 14.6 /uL (0-25.1); URINE BACTERIA 105.4 /uL (0-1359); URINE WBC 43.8 /uL (0-25.8)
[2024-06-09] MEDS: BUDESONIDE/FORMETEROL FUMARATE 80/4.5 mcg INHALER IH SCH (12:36)
[2024-06-09] MEDS: DEXTROSE 5%-LACTATED RINGERS 1,000 ML IV SCH (12:51)
[2024-06-09 12:57] LABS: BASO % 0.7 % (0-2.0); EOS % 0.9 % (0-4.5); HEMOGLOBIN 12.2 GM/dL (10.7-15.3); LYMPH % 31.3 % (8-40); MCHC 33.8 g/dl (32.0-36.0); MEAN CELL VOLUME 74.2 fl (80-96); MEAN PLT VOLUME 7.2 fl (7.5-11.1); MONO % 11.4 % (3.8-10.2); NEUT % 55.7 % (42.8-82.8); PLATELET COUNT 363 10^3/uL (134-434); RBC 4.86 M/mm3 (3.60-5.2); RDW 18.1 % (11.6-15.6)
[2024-06-09] MEDS: ONDANSETRON 4 MG/2 ML VIAL IVPUSH PRN (13:21)
[2024-06-09 13:22] LABS: POTASSIUM 3.4 mmol/L (3.5-5.1)
[2024-06-09 13:23] LABS: CALCIUM 9.2 mg/dL (8.5-10.1)
[2024-06-09 13:24] LABS: BLOOD UREA NITROGEN 30.7 mg/dL (7-18); MAGNESIUM 2.1 mg/dL (1.8-2.4)
[2024-06-09 13:27] LABS: CREATININE 1.8 mg/dL (0.55-1.3)
[2024-06-10 07:30] LABS: POTASSIUM 3.5 mmol/L (3.5-5.1)
[2024-06-10 07:33] LABS: CALCIUM 9.1 mg/dL (8.5-10.1)
[2024-06-10 07:34] LABS: BLOOD UREA NITROGEN 23.9 mg/dL (7-18)
[2024-06-10 07:36] LABS: ALBUMIN 3.1 g/dl (3.4-5.0)
[2024-06-10 07:37] LABS: CREATININE 1.6 mg/dL (0.55-1.3)
[2024-06-10 07:38] LABS: BILIRUBIN,TOTAL 0.5 mg/dL (0.2-1)
[2024-06-10 07:40] LABS: TOT PROT 6.6 g/dl (6.4-8.2)
[2024-06-10] MEDS: ACETAMINOPHEN 500 MG TABLET (FP) PO PRN (10:23)
[2024-06-10] MEDS: PANTOPRAZOLE 40 MG TABLET PO SCH (10:23)
[2024-06-10 14:20] VITALS: BP 122/67; PULSE 77; RESP 18; TEMP 98.4
== END 2024-06-10 15:41 | disposition home or self-care (01) ==
LOC: JER 16:20 → JERBED 19:54 → J4W 06-09 01:23
PROVIDERS: ADMIT Internal Medicine; ATTEND Family Medicine
PROC: 3E033NZ Introduction of Analgesics, Hypnotics, Sedatives into Peripheral Vein, Percutaneous Approach (ICD-10-PCS; principal; 2024-06-08)
PROC: 3E033GC Introduction of Other Therapeutic Substance into Peripheral Vein, Percutaneous Approach (ICD-10-PCS; 2024-06-08)
PROC: 3E023GC Introduction of Other Therapeutic Substance into Muscle, Percutaneous Approach (ICD-10-PCS; 2024-06-08)
PROC: 3E033NZ Introduction of Analgesics, Hypnotics, Sedatives into Peripheral Vein, Percutaneous Approach (ICD-10-PCS; 2024-06-08)
DX: N17.9 Acute kidney failure, unspecified (principal); E66.9 Obesity, unspecified; R10.9 Unspecified abdominal pain; E11.9 Type 2 diabetes mellitus without complications; F32.A Depression, unspecified; E78.5 Hyperlipidemia, unspecified; I10 Essential (primary) hypertension
CPT/HCPCS: 36415; 71045-TC-FY; 74019-TC-FY; 80048; 80053; 81003; 82962; 83690; 83735; 84443; 84484; 85025; 87086; 93005; 93010; 96365; 96372; 96375; 96376; 99285-25; G0378; J0131

== ENCOUNTER 2024-10-31 20:40 | Inpatient (IN) | payer OTHER ==
[2024-10-31] MEDS ORDERED: FAMOTIDINE 20 MG/50 ML IVPB 20 MG/50 ML MG IVPB ONE (22:02)
[2024-10-31] MEDS ORDERED: ACETAMINOPHEN INJECTION 100 ML ONE (22:02)
[2024-10-31] MEDS: SODIUM CHLORIDE 0.9% 500 ML INFUS.BAG IV ONE ×2 (22:08→23:26)
[2024-10-31] MEDS: FAMOTIDINE 20 MG/50 ML IVPB 20 MG/50 ML MG IVPB ONE (22:08)
[2024-10-31] MEDS: ACETAMINOPHEN 1000 MG/100 ML BAG IVPB ONE (22:08)
[2024-10-31 22:14] LABS: BASO % 1.1 % (0-2.0); EOS % 1.2 % (0-4.5); HEMATOCRIT 45.5 % (32.4-45.2); MCH 25.8 pg (25.7-33.7); MCHC 32.8 g/dl (32.0-36.0); MEAN CELL VOLUME 78.4 fl (80-96); MEAN PLT VOLUME 7.5 fl (7.5-11.1); NEUT % 54.7 % (42.8-82.8); PLATELET COUNT 453 10^3/uL (134-434); RBC 5.81 M/mm3 (3.60-5.2); RDW 14.7 % (11.6-15.6); WHITE BLOOD COUNT 12.3 K/mm3 (4.0-10.0)
[2024-10-31 22:24] LABS: INR 1.04 (0.83-1.09); PROTHROMBIN TIME (PATIENT) 11.7 SEC (9.7-13.0)
[2024-10-31 22:26] LABS: ACTIVATED PTT 30.7 SECONDS (25.2-36.5)
[2024-10-31 22:34] LABS: POTASSIUM 4.6 mmol/L (3.5-5.1)
[2024-10-31 22:36] LABS: CALCIUM 10.6 mg/dL (8.5-10.1)
[2024-10-31 22:37] LABS: ALBUMIN 4.2 g/dl (3.4-5.0); BLOOD UREA NITROGEN 47.4 mg/dL (7-18)
[2024-10-31 22:39] LABS: CREATININE 2.2 mg/dL (0.55-1.3)
[2024-10-31 22:41] LABS: BILIRUBIN,TOTAL 0.7 mg/dL (0.2-1)
[2024-10-31] MEDS ORDERED: ONDANSETRON 4 MG/2 ML VIAL ONE (23:21)
[2024-10-31] MEDS: ONDANSETRON 4 MG/2 ML VIAL IVPUSH ONE (23:26)
[2024-11-01] MEDS: DEXTROSE 5%-NORMAL SALINE 1,000 ML IV ONE (00:12)
[2024-11-01] MEDS ORDERED: ASPIRIN 81 MG CHEWABLE TABLETS ONE (00:28)
[2024-11-01] MEDS: ASPIRIN 81 MG CHEWABLE TABLETS PO ONE (00:29)
[2024-11-01] MEDS ORDERED: HEPARIN NA (PORCINE) 5,000 UNITS/ML 1ML VIAL ONE (00:47)
[2024-11-01] MEDS: HEPARIN NA (PORCINE) 5,000 UNITS/ML 1ML VIAL IVPUSH ONE (00:53)
[2024-11-01] MEDS ORDERED: HEPARIN INFUSION - 25,000 UNITS/500 ML INFUS.BAG IVPB ONE (01:36)
[2024-11-01] MEDS: HEPARIN - 25,000 UNIT in SODIUM CHLORIDE 495 ML IV SCH (01:46)
[2024-11-01 02:28] LABS: PH,URINE 5.5 (5.0-8.0); URINE APPEARANCE CLOUDY; URINE BILIRUBIN NEGATIVE (NEGATIVE); URINE COLOR YELLOW; URINE GLUCOSE (UA) 3+ (NEGATIVE); URINE KETONE NEGATIVE (NEGATIVE); URINE LEUK ESTERASE 2+ (NEGATIVE); URINE NITRITE NEGATIVE (NEGATIVE); URINE PROTEIN 1+ (NEGATIVE); URINE UROBILINOGEN 0.2 mg/dL (0.2-1.0)
[2024-11-01] MEDS ORDERED: ALBUTEROL SO4 HFA INHALER IH PRN (03:32)
[2024-11-01] MEDS ORDERED: LEVOTHYROXINE NA 50 MCG TABLET (FP) ONE ×2 (06:15→06:22)
[2024-11-01] MEDS ORDERED: LEVOTHYROXINE NA 100 MCG TABLET (FP) ONE (06:22)
[2024-11-01] MEDS: LEVOTHYROXINE NA 200 MCG TABLET PO SCH (07:04)
[2024-11-01 08:28] LABS: EPI CELLS 38.2 /uL (0-25.1); HYALINE CASTS 0.68 /uL (0-3.1); URINE BACTERIA 928.9 /uL (0-1359); URINE WBC 363.1 /uL (0-25.8)
[2024-11-01] MEDS ORDERED: METOPROLOL TARTRATE 25 MG TABLET (FP) ONE (09:54)
[2024-11-01] MEDS ORDERED: SERTRALINE HCL 50 MG TABLET (FP) ONE (09:54)
[2024-11-01] MEDS: METOPROLOL TARTRATE 25 MG TABLET (FP) PO SCH (10:02)
[2024-11-01] MEDS: BUDESONIDE/FORMETEROL FUMARATE 80/4.5 mcg INHALER IH SCH (10:02)
[2024-11-01] MEDS: SERTRALINE HCL 50 MG TABLET (FP) PO SCH (10:02)
[2024-11-01] MEDS: TIOTROPIUM BROMIDE 2.5 MCG (SPIRIVA) RESPIMAT INHALER IH SCH (11:34)
[2024-11-01] MEDS: INSULIN ASPART SLIDING SCALE (NOVOLOG) 1 VIAL SQ SCH (11:35)
[2024-11-01] MEDS: FLUTICASONE PROP 0.05% 16 GM NASAL SPRAY NS SCH (11:36)
[2024-11-01] MEDS: LIPASE/PROTEASE/AMYLASE 36,000 UNIT CAPSULE PO SCH (12:45)
[2024-11-01] MEDS: LACTATED RINGERS SOLUTION 1,000 ML/1,000 ML INFUS.BAG IV SCH (16:40)
[2024-11-01 20:33] VITALS: BMI 31.4
[2024-11-01] MEDS: ROSUVASTATIN CA 20 MG TABLET PO SCH (21:09)
[2024-11-01] MEDS ORDERED: ATORVASTATIN CA 80 MG TABLET (FP) PO SCH (22:00)
[2024-11-02] MEDS: LEVOTHYROXINE 200 MCG, LEVOTHYROXINE 50 MCG PO SCH (06:35)
[2024-11-02] MEDS ORDERED: LEVOTHYROXINE NA 200 MCG TABLET PO SCH (07:00)
[2024-11-02 08:29] LABS: POTASSIUM 3.4 mmol/L (3.5-5.1)
[2024-11-02 09:03] LABS: ALBUMIN 2.8 g/dl (3.4-5.0)
[2024-11-02 09:05] LABS: CALCIUM 8.9 mg/dL (8.5-10.1); CREATININE 1.2 mg/dL (0.55-1.3)
[2024-11-02 09:07] LABS: BILIRUBIN,TOTAL 0.5 mg/dL (0.2-1)
[2024-11-02] MEDS: ASPIRIN 81 MG CHEWABLE TABLETS PO SCH (10:14)
[2024-11-02] MEDS: PANTOPRAZOLE 40 MG TABLET PO SCH (16:19)
[2024-11-02] MEDS: POTASSIUM CHLORIDE TABS 10 MEQ TABLET.ER (FP) PO ONE (16:19)
[2024-11-02] MEDS: HEPARIN NA (PORCINE) 5,000 UNITS/ML 1ML VIAL SQ SCH (21:38)
[2024-11-03 10:58] LABS: HEMATOCRIT 34.9 % (32.4-45.2); HEMOGLOBIN 11.4 GM/dL (10.7-15.3); MCHC 32.7 g/dl (32.0-36.0); MEAN CELL VOLUME 79.4 fl (80-96); MEAN PLT VOLUME 7.2 fl (7.5-11.1); PLATELET COUNT 281 10^3/uL (134-434); RBC 4.39 M/mm3 (3.60-5.2); RDW 14.7 % (11.6-15.6); WHITE BLOOD COUNT 7.3 K/mm3 (4.0-10.0)
[2024-11-03] MEDS: POTASSIUM CHLORIDE TABS 10 MEQ TABLET.ER (FP) PO SCH (17:26)
[2024-11-04 07:04] LABS: POTASSIUM 4.2 mmol/L (3.5-5.1)
[2024-11-04 07:09] LABS: CALCIUM 9.5 mg/dL (8.5-10.1)
[2024-11-04 07:10] LABS: BLOOD UREA NITROGEN 12.3 mg/dL (7-18); MAGNESIUM 1.6 mg/dL (1.8-2.4)
[2024-11-04 07:13] LABS: CREATININE 1.3 mg/dL (0.55-1.3)
[2024-11-04 07:14] LABS: BILIRUBIN,TOTAL 0.3 mg/dL (0.2-1); TOT PROT 6.4 g/dl (6.4-8.2)
[2024-11-04] MEDS: MAGNESIUM 2GM/50ML STERILE WATER IVPB IVPB ONE ×2 (10:05→13:47)
[2024-11-04 11:58] VITALS: BP 111/64; PULSE 85; RESP 22; TEMP 97.7
[2024-11-04] MEDS: OSELTAMIVIR PHOSPHATE 75 MG CAPSULE PO SCH (14:33)
[2024-11-05] MEDS ORDERED: POTASSIUM CHLORIDE TABS 20 MEQ TABLET.ER (FP) PO SCH (10:00)
== END 2024-11-04 18:56 | disposition home or self-care (01) | DRG 422 ==
LOC: JER 20:40 → JERBED 11-01 01:44 → J4W 11-01 20:16
PROVIDERS: ADMIT Internal Medicine; ATTEND Internal Medicine
DX: E86.0 Dehydration (principal); E11.43 Type 2 diabetes mellitus with diabetic autonomic (poly)neuropathy; K31.84 Gastroparesis; N17.9 Acute kidney failure, unspecified; E11.649 Type 2 diabetes mellitus with hypoglycemia without coma; I13.0 Hypertensive heart and chronic kidney disease with heart failure and stage 1 through stage 4 chronic kidney disease, or unspecified chronic kidney disease; I47.10 Supraventricular tachycardia, unspecified; I50.22 Chronic systolic (congestive) heart failure; E03.9 Hypothyroidism, unspecified; G47.33 Obstructive sleep apnea (adult) (pediatric); I25.10 Atherosclerotic heart disease of native coronary artery without angina pectoris; J44.9 Chronic obstructive pulmonary disease, unspecified; J45.909 Unspecified asthma, uncomplicated; N18.9 Chronic kidney disease, unspecified; N39.0 Urinary tract infection, site not specified; R77.8 Other specified abnormalities of plasma proteins; Z95.5 Presence of coronary angioplasty implant and graft; E78.5 Hyperlipidemia, unspecified
CPT/HCPCS: 0241U-QW; 36415; 71045-TC-FY; 80053; 80061; 81003; 82962; 83036; 83690; 83735; 84443; 84484; 85025; 85027; 85610; 85730; 87086; 87186; 87804; 93005; 93010; 93306-TC; 99285-25; J0131; J1644